=== PATIENT | female | born 1955 | race American Indian/Alaskan Native ===

== ENCOUNTER 2017-05-08 17:48 | Emergency (ER) | payer SELFPAY ==
--- NOTE | 2017-05-08 18:48 | EDM.PDOC ---
ED HPI GENERAL MEDICAL PROBLEM - General Chief Complaint: Skin Complaint Stated Complaint: FACE INFECTION [id number] Time Seen by Provider: 05/08/17 18:42 Source of Information: Reports: Patient History Limitations: Reports: No Limitations - History of Present Illness INITIAL COMMENTS - FREE TEXT/NARRATIVE: got bit by something Thursday, was itchy scratched ti now looks worse. - Related Data Allergies Allergy/AdvReac Type Severity Reaction Status Date / Time No Known Allergies Allergy Verified 05/21/16 19:02 Home Meds: Home Meds Insulin Detemir [Levemir Flexpen] 22 unit SQ DAILY 02/24/14 [History] Acetaminophen [Tylenol] 650 mg PO Q4HR PRN 02/02/15 [History] Ibuprofen [Motrin] 400 mg PO Q6HR PRN 02/02/15 [History] Multivitamin [Multivitamins] 1 tab PO DAILY 02/02/15 [History] metFORMIN [Glucophage] 1,000 mg PO DAILY 02/02/15 [History] Aspirin [Kai Chewable Aspirin] 81 mg PO DAILY 02/14/15 [History] Calcium Carbonate/Vitamin D3 [Os-Jermain 500+D] 1 tab PO DAILY 02/14/15 [History] Lisinopril [Prinivil] 5 mg PO DAILY #30 tablet 02/27/15 [Rx] Potassium Chloride [Klor-Con 10] 20 meq PO WITHBREAKFAST #30 tab.er 02/27/15 [Rx ] Past Medical History HEENT History: Reports: Impaired Vision Other HEENT History: wears glasses Cardiovascular History: Reports: CAD, Hypertension Respiratory History: Reports: Bronchitis, Recurrent Gastrointestinal History: Reports: None Genitourinary History: Reports: None 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 Other Musculoskeletal History: right below the knee amputation Neurological History: Reports: None Psychiatric History: Reports: None Endocrine/Metabolic History: Reports: Diabetes, Type II Hematologic History: Reports: None Immunologic History: Reports: None Oncologic (Cancer) History: Reports: None Dermatologic History: Reports: None - Infectious Disease History Infectious Disease History: Reports: None - Past Surgical History Head Surgeries/Procedures: Reports: None GI Surgical History: Reports: Cholecystectomy Musculoskeletal Surgical History: Reports: Amputation Social & Family History - Family History Family Medical History: Noncontributory - Tobacco Use Smoking Status *Q: Never Smoker Second Hand Smoke Exposure: No - Caffeine Use Caffeine Use: Reports: Coffee, Tea - Alcohol Use Days Per Week of Alcohol Use: 0 - Recreational Drug Use Recreational Drug Use: No - Living Situation & Occupation Living situation: Reports: with Family Occupation: Disabled ED ROS GENERAL - Review of Systems Review Of Systems: ROS reveals no pertinent complaints other than HPI. ED EXAM, SKIN/RASH Exam: See Below Exam Limited By: No Limitations General Appearance: Alert, WD/WN, No Apparent Distress Ears: Hearing Grossly Normal Throat/Mouth: Normal Voice, No Airway Compromise Head: Atraumatic Neck: Non-Tender, Full Range of Motion Respiratory/Chest: No Respiratory Distress Cardiovascular: Regular Rate, Rhythm GI/Abdominal: Soft, Non-Tender Neurological: Alert, Oriented, Normal Cognition, Normal Gait, No Motor/Sensory Deficits Psychiatric: Normal Affect, Normal Mood Skin: Warm, Dry, Normal Color, Other (right cheek infected bite local erythema. ) Location, Skin: Face Characteristics: Erythematous Associated features: Warmth, Inflammation Lymphatic: No Adenopathy Course - Vital Signs Last Recorded V/S: Last Vital Signs Temp 36.9 C 05/08/17 18:32 Pulse 85 05/08/17 18:32 Resp 18 05/08/17 18:32 BP 153/84 H 05/08/17 18:32 Pulse Ox 97 05/08/17 18:32 Departure - Departure Time of Disposition: 18:44 Disposition: Home, Self-Care 01 Condition: Good Clinical Impression: Infected bite wound - Discharge Information Instructions: Cellulitis, Adult, [id number] Forms: ED Department Discharge Additional Instructions: 1) continue hot compress to cheek 2) follow up at clinic or recheck as needed rx given; clindamycin 150mg qid x 40
== END 2017-05-08 18:54 | disposition home or self-care (01) ==
LOC: DL.ED 17:48
CPT/HCPCS: 99283

== ENCOUNTER 2017-07-29 09:55 | Emergency (ER) | payer OTHER ==
--- NOTE | 2017-07-29 10:07 | EDM.PDOC ---
ED HPI GENERAL MEDICAL PROBLEM - General Chief Complaint: Lower Extremity Injury/Pain Stated Complaint: hip pain . In by [facility] Time Seen by Provider: 07/29/17 10:25 Source of Information: Reports: Patient History Limitations: Reports: No Limitations - History of Present Illness INITIAL COMMENTS - FREE TEXT/NARRATIVE: Patient presents to the ER via EMS. She reports that she got out of bed around 0530 this morning to go to the bathroom. As she was attempting to put on her right leg prosthetic she lost her balance and fell, landing on her right hip. She was unable to get up following fall. She reports 8/10 pain localized to her right hip, initially and at time of assessment. Pain worsens with movement. Denies any numbness or tingling to affected extremity. Denies LOC or hitting head with fall. Right Hip Pain Score (Numeric/FACES): 8 - Related Data Allergies Allergy/AdvReac Type Severity Reaction Status Date / Time No Known Allergies Allergy Verified 07/29/17 09:58 Home Meds: Home Meds Insulin Detemir [Levemir Flexpen] 25 unit SQ DAILY 02/24/14 [History] Acetaminophen [Tylenol] 650 mg PO Q4HR PRN 02/02/15 [History] Ibuprofen [Motrin] 400 mg PO Q6HR PRN 02/02/15 [History] Multivitamin [Multivitamins] 1 tab PO DAILY 02/02/15 [History] metFORMIN [Glucophage] 1,000 mg PO DAILY 02/02/15 [History] Aspirin [Kai Chewable Aspirin] 81 mg PO DAILY 02/14/15 [History] Calcium Carbonate/Vitamin D3 [Os-Jermain 500+D] 1 tab PO DAILY 02/14/15 [History] Lisinopril [Prinivil] 5 mg PO DAILY #30 tablet 02/27/15 [Rx] Potassium Chloride [Klor-Con 10] 20 meq PO WITHBREAKFAST #30 tab.er 02/27/15 [Rx ] Past Medical History HEENT History: Reports: Impaired Vision Other HEENT History: wears glasses Cardiovascular History: Reports: CAD, Hypertension Respiratory History: Reports: Bronchitis, Recurrent Gastrointestinal History: Reports: None Genitourinary History: Reports: None [employer]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 Other Musculoskeletal History: right below the knee amputation Neurological History: Reports: None Psychiatric History: Reports: None Endocrine/Metabolic History: Reports: Diabetes, Type II Hematologic History: Reports: None Immunologic History: Reports: None Oncologic (Cancer) History: Reports: None Dermatologic History: Reports: None - Infectious Disease History Infectious Disease History: Reports: None - Past Surgical History Head Surgeries/Procedures: Reports: None GI Surgical History: Reports: Cholecystectomy Musculoskeletal Surgical History: Reports: Amputation Social & Family History - Family History Family Medical History: Noncontributory - Tobacco Use Smoking Status *Q: Never Smoker Second Hand Smoke Exposure: No - Caffeine Use Caffeine Use: Reports: Coffee, Soda, Tea - Alcohol Use Days Per Week of Alcohol Use: 0 - Recreational Drug Use Recreational Drug Use: No - Living Situation & Occupation Living situation: Reports: with Family Occupation: Disabled Review of Systems - Review of Systems Review Of Systems: ROS reveals no pertinent complaints other than HPI. ED EXAM, GENERAL - Physical Exam Exam: See Below Exam Limited By: No Limitations General Appearance: Alert, WD/WN, No Apparent Distress Head: Atraumatic, Normocephalic Neck: Normal Inspection, Supple, Non-Tender, Full Range of Motion Respiratory/Chest: No Respiratory Distress, Lungs Clear, Normal Breath Sounds, No Accessory Muscle Use, Chest Non-Tender Cardiovascular: Normal Peripheral Pulses, Regular Rate, Rhythm, No Edema, No Gallop, No JVD, No Murmur, No Rub GI/Abdominal: Normal Bowel Sounds, Soft, Non-Tender, No Organomegaly, No Distention, No Abnormal Bruit, No Mass (Female) Exam: Deferred Rectal (Female) Exam: Deferred Extremities: Normal Inspection, Normal Capillary Refill, Leg Pain (right hip), Limited Range of Motion (RLE due to pain) Neurological: Alert, Oriented, CN II-XII Intact, Normal Cognition, No Motor/ Sensory Deficits Psychiatric: Normal Affect, Normal Mood Skin Exam: Warm, Dry, Intact, Normal Color, No Rash Course - Vital Signs Last Recorded V/S: Last Vital Signs Temp 36.6 C 07/29/17 10:05 Pulse 96 07/29/17 11:08 Resp 16 07/29/17 11:08 BP 127/66 07/29/17 11:08 Pulse Ox 93 L 07/29/17 11:08 - Orders/Labs/Meds Meds: Medications Discontinued Medications Generic Name Dose Route Start Last Admin Trade Name Freq PRN Reason Stop Dose Admin Hydromorphone HCl 0.5 mg 07/29/17 10:26 07/29/17 10:31 Dilaudid IVPUSH 07/29/17 10:27 0.5 mg ONETIME ONE Administration - Re-Assessments/Exams Free Text/Narrative Re-Assessment/Exam: Spoke with Dr. Scherer ([facility]) who accepted the patient for transfer. Will send the patient by [facility]. 07/29/17 11:07 Departure - Departure Time of Disposition: 11:11 Disposition: DC/Tfer to Acute Hospital 02 Condition: Fair Clinical Impression: Fracture of neck of femur, hip - Discharge Information Forms: Interfacility Transfer EMTALA Care Plan Goals: Discussed history and Xray results with Dr. Scherer ([facility]). Patient accepted for transfer. Patient will be transferred by [facility] . Discussed with patient and daughter who were agreeable to plan of care.
[2017-07-29] MEDS ORDERED: HYDROmorphone 1 MG/ML Syringe IVPUSH ONE ×2 (10:26→11:16)
[2017-07-29 11:08] VITALS: BP 127/66
== END 2017-07-29 11:45 ==
LOC: DL.ED 09:55
DX: S72.001A Fracture of unspecified part of neck of right femur, initial encounter for closed fracture (principal); I25.10 Atherosclerotic heart disease of native coronary artery without angina pectoris; E11.9 Type 2 diabetes mellitus without complications; I10 Essential (primary) hypertension; Z79.899 Other long term (current) drug therapy; Z79.4 Long term (current) use of insulin; W18.11XA Fall from or off toilet without subsequent striking against object, initial encounter
CPT/HCPCS: 73502; 96374; 96376; 99285; J1170; 99284

== ENCOUNTER 2018-07-28 07:33 | Day surgery (SDC) | payer MEDICAID ==
[2018-07-28] MEDS ORDERED: Dexamethasone 4 MG/ML SDV IV ONE (07:34)
[2018-07-28] MEDS ORDERED: Midazolam 1 MG/ML 2 ML SDV IV ONE (07:34)
[2018-07-28] MEDS ORDERED: Sodium Chloride 0.9% 10 ML Syringe IV ONE (07:34)
[2018-07-28] MEDS ORDERED: Dilation Soln 1 EA EACH EYELF ONE (07:48)
[2018-07-28] MEDS ORDERED: Povidone-Iodine 5% Sterile Ophth Soln 30 ML Bottle EYELF ONE ×2 (07:48→08:56)
[2018-07-28] MEDS ORDERED: Timolol Maleate 0.5% Ophth Soln 5 ML Bottle EYELF ONE (07:48)
[2018-07-28] MEDS ORDERED: Phenylephrine 10% Ophth Soln 5 ML Bot EYELF ONE (07:48)
[2018-07-28] MEDS ORDERED: Proparacaine 0.5% Ophth Soln 15 ML Bottle EYELF ONE (07:48)
[2018-07-28] MEDS ORDERED: Moxifloxacin 0.5% Ophth Soln 3 ML Bottle EYELF ONE (07:48)
[2018-07-28] MEDS ORDERED: Sodium Chloride 0.9% 10 ML Syringe FLUSH SCH (08:00)
[2018-07-28] MEDS ORDERED: Tetracaine HCl/PF 0.5% 4 ML Bottle EYELF ONE (08:56)
[2018-07-28] MEDS ORDERED: Lidocaine 1% 30 ML SDV INJECT ONE (09:03)
[2018-07-28] MEDS ORDERED: Chondroitin Sulfate/Hyaluronate Sodium Ophth Inj 0.75 ML Syringe EYELF ONE (09:04)
[2018-07-28] MEDS ORDERED: Balanced Salt Solution Ophth Irrig 500 ML Bottle IOCULAR ONE (09:04)
[2018-07-28] MEDS ORDERED: Vancomycin 500 MG SDV EYELF ONE (09:06)
[2018-07-28] MEDS ORDERED: Apraclonidine 0.5% Ophth Soln 5 ML Bot EYELF ONE (09:12)
[2018-07-28] MEDS ORDERED: Diclofenac Sodium 0.1% Ophth Soln 5 ML Bottle EYELF ONE (09:12)
[2018-07-28] MEDS ORDERED: Dexamethasone/Neomycin/Polymyxin B Ophth Oint 3.5 GM Tube EYELF ONE (09:13)
[2018-07-28 10:09] VITALS: BP 146/72
--- NOTE | 2018-07-28 11:23 | OR ---
DATE: PREOPERATIVE DIAGNOSIS: Visually significant mixed cataract, left eye. POSTOPERATIVE DIAGNOSIS: Visually significant mixed cataract, left eye. PROCEDURE: Extracapsular cataract extraction with intraocular lens implant, left eye. ANESTHESIA: Topical/local MAC. COMPLICATIONS: None. INDICATION: Ms. Harrington was seen in the clinic. She is unhappy with her vision, and she has noticed a slow progressive change. Clinical examination reveals visually significant mixed cataract. I explained options; I offered cataract surgery; and I explained risks including the potential for infection, retinal detachment, and loss of vision amongst others. We discussed implant options, and she has requested a monofocal implant. OPERATIVE DESCRIPTION: After informed consent was obtained and the risks, benefits, and alternatives were explained, the patient was brought to the operative suite and topical anesthesia was administered. The patient was then prepped and draped in the sterile fashion, and attention was placed on the left eye. A sterile lid speculum was placed into the left eye to allow operative exposure. A full-thickness paracentesis was made in the temporal portion of the operative eye. Preservative-free lidocaine 0.1 mL was injected into the anterior chamber followed by viscoelastic. A full-thickness corneal incision was then made into the anterior chamber. A bent needle cystotome was used to create a small cathy in the anterior capsule. The capsulorrhexis forceps was then used to create a 360-degree curvilinear capsulorrhexis. The nucleus was then removed using a phacoemulsification handpiece, and the remaining cortical material was then removed with irrigation and aspiration handpiece. Following removal of the cortical material, the capsular bag was then inspected and noted to be free of any holes or tears. Viscoelastic was then injected into the capsular bag, and the intraocular lens was inserted into the capsular bag. The viscoelastic material was then removed from both the anterior and posterior chambers and from behind the IOL. The lens and capsular bag were then reinspected. The IOL was well centered and the capsular bag intact. The wound and paracentesis sites were inspected and hydrated with balanced saline solution. Both were found to be self-sealing. The intraocular pressure was assessed digitally and found to be within normal range. A good red reflex was noted at the completion of the procedure. No complications occurred during the operation. At the completion of the procedure, Maxitrol, Voltaren, and Iopidine drops were placed into the operative eye. A sterile eye shield was placed over the operative eye, and the patient was transported to the postoperative recovery area having tolerated the procedure well. Postoperative instructions were given along with a postoperative appointment. The patient was advised to call with any questions or concerns. [facility] /[id number]
== END 2018-07-28 10:05 | disposition home or self-care (01) ==
LOC: DL.SDS 07:33
PROVIDERS: ATTEND Ophthalmology
DX: E11.36 Type 2 diabetes mellitus with diabetic cataract (principal); E11.22 Type 2 diabetes mellitus with diabetic chronic kidney disease; N18.3 Chronic kidney disease, stage 3 (moderate); E11.621 Type 2 diabetes mellitus with foot ulcer; L97.519 Non-pressure chronic ulcer of other part of right foot with unspecified severity; E78.5 Hyperlipidemia, unspecified; E55.9 Vitamin D deficiency, unspecified; Z79.4 Long term (current) use of insulin; Z79.899 Other long term (current) drug therapy; Z88.1 Allergy status to other antibiotic agents; Z89.511 Acquired absence of right leg below knee; Z87.891 Personal history of nicotine dependence
CPT/HCPCS: 66984; 82962; A9270; C1780; J1100; J2250; J3370; J7050

== ENCOUNTER 2018-08-04 07:39 | Day surgery (SDC) | payer MEDICAID ==
[2018-08-04] MEDS ORDERED: Midazolam 1 MG/ML 2 ML SDV IV ONE (07:40)
[2018-08-04] MEDS ORDERED: Dexamethasone 4 MG/ML SDV IV ONE (07:40)
[2018-08-04] MEDS ORDERED: Sodium Chloride 0.9% 10 ML Syringe IV ONE (07:40)
[2018-08-04] MEDS ORDERED: Tetracaine HCl/PF 0.5% 4 ML Bottle EYERT ONE (08:51)
[2018-08-04] MEDS ORDERED: Povidone-Iodine 5% Sterile Ophth Soln 30 ML Bottle EYERT ONE ×2 (08:52→10:15)
[2018-08-04] MEDS ORDERED: Lidocaine 1% 30 ML SDV ONE (08:52)
[2018-08-04] MEDS ORDERED: Vancomycin 500 MG SDV EYERT ONE (08:52)
[2018-08-04] MEDS ORDERED: Chondroitin Sulfate/Hyaluronate Sodium Ophth Inj 0.75 ML Syringe EYERT ONE (08:53)
[2018-08-04] MEDS ORDERED: Balanced Salt Solution Ophth Irrig 500 ML Bottle IOCULAR ONE (08:53)
[2018-08-04] MEDS ORDERED: Dexamethasone/Neomycin/Polymyxin B Ophth Oint 3.5 GM Tube EYERT ONE (08:54)
[2018-08-04] MEDS ORDERED: Apraclonidine 0.5% Ophth Soln 5 ML Bot EYERT ONE (08:54)
--- NOTE | 2018-08-04 09:23 | OR ---
DATE: 08/04/2018 PREOPERATIVE DIAGNOSIS: Visually significant mixed cataract, right eye. POSTOPERATIVE DIAGNOSIS: Visually significant mixed cataract, right eye. PROCEDURE: Extracapsular cataract extraction with intraocular lens implant, right eye. ANESTHESIA: Topical/local MAC. COMPLICATIONS: None. INDICATION: Mrs. Harrington was seen in the clinic. She has complained of difficulty reading and difficulty seeing at distance. Clinical examination reveals mixed nuclear and cortical cataract. I explained options; I offered cataract surgery; and I explained risks preoperatively including the potential for infection, retinal detachment, loss of vision, and need for additional surgery amongst others. We discussed implant options, and she requested a monofocal implant. OPERATIVE DESCRIPTION: After informed consent was obtained and the risks, benefits, and alternatives were explained, the patient was brought to the operative suite and topical anesthesia was administered. The patient was then prepped and draped in the sterile fashion, and attention was placed on the right eye. A sterile lid speculum was placed into the right eye to allow operative exposure. A full-thickness paracentesis was made in the temporal portion of the operative eye. Preservative-free lidocaine 0.1 mL was injected into the anterior chamber followed by viscoelastic. A full-thickness corneal incision was then made into the anterior chamber. A bent needle cystotome was used to create a small cathy in the anterior capsule. The capsulorrhexis forceps was then used to create a 360-degree curvilinear capsulorrhexis. The nucleus was then removed using a phacoemulsification handpiece, and the remaining cortical material was then removed with irrigation and aspiration handpiece. Following removal of the cortical material, the capsular bag was then inspected and noted to be free of any holes or tears. Viscoelastic was then injected into the capsular bag, and the intraocular lens was inserted into the capsular bag. The viscoelastic material was then removed from both the anterior and posterior chambers and from behind the IOL. The lens and capsular bag were then reinspected. The IOL was well centered and the capsular bag intact. The wound and paracentesis sites were inspected and hydrated with balanced saline solution. Both were found to be self-sealing. The intraocular pressure was assessed digitally and found to be within normal range. A good red reflex was noted at the completion of the procedure. No complications occurred during the operation. At the completion of the procedure, Maxitrol, Voltaren, and Iopidine drops were placed into the operative eye. A sterile eye shield was placed over the operative eye, and the patient was transported to the postoperative recovery area having tolerated the procedure well. Postoperative instructions were given along with a postoperative appointment. The patient was advised to call with any questions or concerns. [facility] /[id number]
[2018-08-04] MEDS ORDERED: Dilation Soln 1 EA EACH EYERT ONE (10:15)
[2018-08-04] MEDS ORDERED: Sodium Chloride 0.9% 10 ML Syringe FLUSH SCH (10:15)
[2018-08-04] MEDS ORDERED: Phenylephrine 10% Ophth Soln 5 ML Bot EYERT ONE (10:15)
[2018-08-04] MEDS ORDERED: Moxifloxacin 0.5% Ophth Soln 3 ML Bottle EYERT ONE (10:15)
[2018-08-04] MEDS ORDERED: Timolol Maleate 0.5% Ophth Soln 5 ML Bottle EYERT ONE (10:15)
[2018-08-04] MEDS ORDERED: Proparacaine 0.5% Ophth Soln 15 ML Bottle EYERT ONE (10:15)
[2018-08-04 12:15] VITALS: BP 152/69
== END 2018-08-04 10:02 | disposition home or self-care (01) ==
LOC: DL.SDS 07:39
PROVIDERS: ATTEND Ophthalmology
DX: E11.36 Type 2 diabetes mellitus with diabetic cataract (principal); H25.811 Combined forms of age-related cataract, right eye; E11.22 Type 2 diabetes mellitus with diabetic chronic kidney disease; N18.3 Chronic kidney disease, stage 3 (moderate); J06.9 Acute upper respiratory infection, unspecified; J40 Bronchitis, not specified as acute or chronic; E78.5 Hyperlipidemia, unspecified; E55.9 Vitamin D deficiency, unspecified; Z98.42 Cataract extraction status, left eye; Z96.1 Presence of intraocular lens; Z87.891 Personal history of nicotine dependence; Z79.4 Long term (current) use of insulin; Z79.82 Long term (current) use of aspirin; Z79.899 Other long term (current) drug therapy; Z89.511 Acquired absence of right leg below knee
CPT/HCPCS: 82962; A9270-GY; C1780; J1100; J2250; J3370; J7050

== ENCOUNTER 2020-01-20 19:12 | Emergency (ER) | payer MEDICARE, OTHER ==
[2020-01-20] MEDS ORDERED: Metoprolol Tartrate 50 MG Tab PO ONE (19:13)
--- NOTE | 2020-01-20 19:30 | EDM.PDOC ---
ED HPI GENERAL MEDICAL PROBLEM - General Chief Complaint: Cardiovascular Problem Stated Complaint: HIGH BLOOD PRESSURE Time Seen by Provider: 01/20/20 19:25 Source of Information: Reports: Patient History Limitations: Reports: No Limitations - History of Present Illness INITIAL COMMENTS - FREE TEXT/NARRATIVE: seen in clinic this afternoon Sinus infection and bladder infection, told to come to ED because BP elevated likely from cold medication. Usually runs 125 systolic, patient denies any symptoms, Unsure of what OTC cough and cold medication she has been using. - Related Data Allergies Allergy/AdvReac Type Severity Reaction Status Date / Time No Known Allergies Allergy Verified 01/20/20 19:20 Home Meds: Home Meds Insulin Detemir [Levemir Flexpen] 25 unit SQ DAILY 02/24/14 [History] Acetaminophen [Tylenol] 650 mg PO Q4HR PRN 02/02/15 [History] Ibuprofen [Motrin] 400 mg PO Q6HR PRN 02/02/15 [History] Multivitamin [Multivitamins] 1 tab PO DAILY 02/02/15 [History] metFORMIN [Glucophage] 1,000 mg PO DAILY 02/02/15 [History] Aspirin [Kai Chewable Aspirin] 81 mg PO DAILY 02/14/15 [History] Calcium Carbonate/Vitamin D3 [Os-Jermain 500+D] 1 tab PO DAILY 02/14/15 [History] Potassium Chloride [Klor-Con 10] 20 meq PO WITHBREAKFAST #30 tab.er 02/27/15 [Rx ] lisinopriL [Prinivil] 5 mg PO DAILY #30 tablet 02/27/15 [Rx] atorvaSTATin [Lipitor] 10 mg PO DAILY 07/26/18 [History] Past Medical History HEENT History: Reports: Cataract, Impaired Vision Other HEENT History: wears glasses Cardiovascular History: Reports: CAD, Hypertension Respiratory History: Reports: Bronchitis, Recurrent Gastrointestinal History: Reports: None Genitourinary History: Reports: None 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 Musculoskeletal History: Reports: Arthritis Other Musculoskeletal History: right below the knee amputation Neurological History: Reports: None Psychiatric History: Reports: None Endocrine/Metabolic History: Reports: Diabetes, Type II Hematologic History: Reports: None Immunologic History: Reports: None Oncologic (Cancer) History: Reports: None Dermatologic History: Reports: None - Infectious Disease History Infectious Disease History: Reports: None - Past Surgical History Head Surgeries/Procedures: Reports: None HEENT Surgical History: Reports: Cataract Surgery Cardiovascular Surgical History: Reports: None Respiratory Surgical History: Reports: None GI Surgical History: Reports: Appendectomy, Cholecystectomy Endocrine Surgical History: Reports: None Neurological Surgical History: Reports: None Musculoskeletal Surgical History: Reports: Amputation Dermatological Surgical History: Reports: None Social & Family History - Family History Family Medical History: Noncontributory - Tobacco Use Smoking Status *Q: Never Smoker Second Hand Smoke Exposure: No - Caffeine Use Caffeine Use: Reports: Coffee - Recreational Drug Use Recreational Drug Use: No - Living Situation & Occupation Living situation: Reports: with Family Occupation: Disabled ED ROS GENERAL - Review of Systems Review Of Systems: See Below Constitutional: Reports: Malaise HEENT: Reports: Sinus Problem Respiratory: Reports: No Symptoms Cardiovascular: Reports: No Symptoms GI/Abdominal: Reports: No Symptoms Musculoskeletal: Reports: No Symptoms Neurological: Reports: No Symptoms. Denies: Headache, Seizure, Tingling, Tremors, Trouble Speaking, Difficulty Walking, Weakness ED EXAM, GENERAL - Physical Exam Exam: See Below Exam Limited By: No Limitations General Appearance: Alert, No Apparent Distress Eye Exam: Bilateral Eye: EOMI, PERRL Ears: Normal External Exam, Hearing Grossly Normal, Normal TMs Nose: Normal Inspection, Normal Mucosa. No: Nasal Tenderness Throat/Mouth: Normal Inspection, Normal Oropharynx Head: Atraumatic, Normocephalic. No: Sinus Tenderness Neck: Normal Inspection Respiratory/Chest: No Respiratory Distress, Lungs Clear, Normal Breath Sounds Cardiovascular: Normal Peripheral Pulses, Regular Rate, Rhythm GI/Abdominal: Normal Bowel Sounds Extremities: Normal Inspection Neurological: Alert, Oriented, Normal Cognition Psychiatric: Normal Affect, Normal Mood Skin Exam: Warm, Dry, Intact Course - Vital Signs Last Recorded V/S: Last Vital Signs Temp 97.8 F 01/20/20 19:20 Pulse 91 01/20/20 20:00 Resp 16 01/20/20 19:20 BP 198/91 H 01/20/20 20:00 Pulse Ox 99 01/20/20 19:20 - Orders/Labs/Meds Orders: Active Orders 24 hr Category Date Time Status EKG 12 Lead [EKG Documentation Completion] [RC] URGENT Care 01/20/20 19:30 Active Labs: Laboratory Tests 01/20/20 01/20/20 Range/Units 19:51 19:51 WBC 7.4 (5.0-10.0) 10^3/uL RBC 3.09 L (4.2-5.4) 10^6/uL Hgb 9.7 L (12.0-16.0) g/dL Hct 29.5 L (37.0-47.0) % MCV 95.5 D (80-100) fL MCH 31.4 (27.0-34.0) pg MCHC 32.9 L (33.0-35.0) g/dL Plt Count 155 D (150-450) 10^3/uL Neut % (Auto) 64.5 (42.2-75.2) % Lymph % (Auto) 23.5 (20.5-50.1) % Jennings % (Auto) 9.5 H (2-8) % Eos % (Auto) 2.2 (1.0-3.0) % Baso % (Auto) 0.3 (0.0-1.0) % Sodium 140 (136-145) mmol/L Potassium 4.3 (3.5-5.1) mmol/L Chloride 107 (98-107) mmol/L Carbon Dioxide 22 (21-32) mmol/L Anion Gap 15.3 H (7-13) mEq/L BUN 31 H (7-18) mg/dL Creatinine 1.67 H (0.55-1.02) mg/dL Est Cr Clr Drug Dosing 27.78 mL/min Estimated GFR (MDRD) 31 BUN/Creatinine Ratio 18.6 (No establ ref range) Glucose 175 H (74-99) mg/dL Calcium 8.2 L (8.5-10.1) mg/dL Total Bilirubin 0.2 (0.2-1.0) mg/dL AST 24 (15-37) U/L ALT 25 (14-59) U/L Alkaline Phosphatase 120 H (46-116) U/L Total Protein 7.5 (6.4-8.2) g/dL Albumin 2.9 L (3.4-5.0) g/dL Globulin 4.6 Albumin/Globulin Ratio 0.63 Meds: Medications Discontinued Medications Generic Name Dose Route Start Last Admin Trade Name Freq PRN Reason Stop Dose Admin Metoprolol Tartrate 2.5 mg 01/20/20 19:55 01/20/20 20:00 Lopressor IVPUSH 01/20/20 19:56 2.5 mg ONETIME ONE Administration Metoprolol Tartrate Confirm 01/20/20 20:40 01/20/20 21:06 Lopressor Administered 01/20/20 20:41 Not Given Dose 50 mg .ROUTE .STK-MED ONE Departure - Departure Time of Disposition: 20:22 Disposition: Home, Self-Care 01 Condition: Good Clinical Impression: Hypertensive heart disease Qualifiers: Heart failure presence: unspecified whether heart failure present Qualified Code(s): I11.9 - Hypertensive heart disease without heart failure Sinus infection Qualifiers: Sinusitis location: pansinusitis Chronicity: acute Recurrence: not specified as recurrent Qualified Code(s): J01.40 - Acute pansinusitis, unspecified Referrals: Juan Francisco Lacey MD [Primary Care Provider] - Forms: ED Department Discharge Additional Instructions: avoid NSAID- ibuprofen Cough mediction per package only if has HBP in label Conitnue antibiotic as orded metoprolol 25mg one this ira monitor blood pressure recheck if greater than 190 rest light activity Sepsis Event Note - Evaluation Sepsis Screening Result: No Definite Risk - Focused Exam Vital Signs: Vital Signs Temp Pulse Pulse Resp BP BP Pulse Ox 01/20/20 20:00 91 198/91 H 01/20/20 19:20 97.8 F 100 16 204/99 H 99 Date Exam was Performed: 01/21/20 Time Exam was Performed: 04:16 - My Orders Last 24 Hours: My Active Orders 01/20/20 19:30 EKG 12 Lead [EKG Documentation Completion] [RC] URGENT - Assessment/Plan Last 24 Hours: My Active Orders 01/20/20 19:30 EKG 12 Lead [EKG Documentation Completion] [RC] URGENT
[2020-01-20] MEDS ORDERED: Metoprolol Tartrate 5 MG/5 ML SDV IVPUSH ONE (19:55)
[2020-01-20 20:02] VITALS: BP 198/91; PULSE 91
[2020-01-20 20:26] LABS: ANION GAP 15.3 mEq/L (7-13)
[2020-01-20] MEDS ORDERED: Metoprolol Tartrate 50 MG Tab ONE (20:40)
== END 2020-01-20 21:15 | disposition home or self-care (01) ==
LOC: DL.ED 19:12
DX: I11.9 Hypertensive heart disease without heart failure (principal); J01.40 Acute pansinusitis, unspecified; I25.10 Atherosclerotic heart disease of native coronary artery without angina pectoris; E11.9 Type 2 diabetes mellitus without complications; Z79.899 Other long term (current) drug therapy; Z98.49 Cataract extraction status, unspecified eye; Z90.49 Acquired absence of other specified parts of digestive tract; Z79.82 Long term (current) use of aspirin; Z79.84 Long term (current) use of oral hypoglycemic drugs
CPT/HCPCS: 36415; 80053; 85025; 93005; 96374; 99283; 99283-25; J3490

== ENCOUNTER 2020-09-05 12:25 | Inpatient (IN) | payer MEDICARE, MEDICAID, OTHER ==
--- NOTE | 2020-09-05 12:46 | EDM.PDOC ---
ED HPI GENERAL MEDICAL PROBLEM - General Chief Complaint: Respiratory Problem Time Seen by Provider: 09/05/20 12:30 Source of Information: Reports: Patient, EMS, EMS Notes Reviewed, RN, RN Notes Reviewed History Limitations: Reports: No Limitations - History of Present Illness INITIAL COMMENTS - FREE TEXT/NARRATIVE: Patient to ER per [facility] with complaint of weakness, cough, sharp pains to the right upper quadrant and back with cough. Patient states she was tested positive for Covid on August 28, and has been quarantining. States the pain with the cough has been for about the past 2 days. Admits to nausea/vomiting/dry heaves. Unable to eat, is diabetic. Denies fever, chills, diarrhea. Admits to shortness of breath with the cough and the pain as well. Patient states she has had her gallbladder removed. Onset: Gradual - Related Data Allergies Allergy/AdvReac Type Severity Reaction Status Date / Time No Known Allergies Allergy Verified 09/05/20 12:05 Home Meds: Home Meds Insulin Detemir [Levemir Flexpen] 25 unit SQ DAILY 02/24/14 [History] Acetaminophen [Tylenol] 650 mg PO Q4HR PRN 02/02/15 [History] Ibuprofen [Motrin] 400 mg PO Q6HR PRN 02/02/15 [History] Multivitamin [Multivitamins] 1 tab PO DAILY 02/02/15 [History] Calcium Carbonate/Vitamin D3 [Os-Jermain 500+D] 1 tab PO DAILY 02/14/15 [History] atorvaSTATin [Lipitor] 10 mg PO DAILY 07/26/18 [History] Aspirin [Aspirin EC] 325 mg PO DAILY 09/05/20 [History] Losartan [Cozaar] 25 mg PO DAILY 09/05/20 [History] Past Medical History HEENT History: Reports: Cataract, Impaired Vision Other HEENT History: wears glasses Cardiovascular History: Reports: CAD, Hypertension Respiratory History: Reports: Bronchitis, Recurrent Gastrointestinal History: Reports: None Genitourinary History: Reports: None 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 Musculoskeletal History: Reports: Arthritis Other Musculoskeletal History: right below the knee amputation Neurological History: Reports: None Psychiatric History: Reports: None Endocrine/Metabolic History: Reports: Diabetes, Type II Hematologic History: Reports: None Immunologic History: Reports: None Oncologic (Cancer) History: Reports: None Dermatologic History: Reports: None - Infectious Disease History Infectious Disease History: Reports: None - Past Surgical History Head Surgeries/Procedures: Reports: None HEENT Surgical History: Reports: Cataract Surgery Cardiovascular Surgical History: Reports: None Respiratory Surgical History: Reports: None GI Surgical History: Reports: Appendectomy, Cholecystectomy Endocrine Surgical History: Reports: None Neurological Surgical History: Reports: None Musculoskeletal Surgical History: Reports: Amputation Dermatological Surgical History: Reports: None Social & Family History - Family History Family Medical History: Noncontributory - Caffeine Use Caffeine Use: Reports: Coffee - Living Situation & Occupation Living situation: Reports: with Family Occupation: Disabled ED ROS GENERAL - Review of Systems Review Of Systems: Comprehensive ROS is negative, except as noted in HPI. ED EXAM, GENERAL - Physical Exam Exam: See Below Exam Limited By: No Limitations General Appearance: Alert, WD/WN, Mild Distress Eye Exam: Bilateral Eye: EOMI, Normal Inspection Ears: Normal External Exam, Hearing Grossly Normal Nose: Normal Inspection Throat/Mouth: Normal Inspection, Normal Voice, No Airway Compromise Head: Atraumatic, Normocephalic Neck: Normal Inspection, Supple, Non-Tender, Full Range of Motion Respiratory/Chest: No Respiratory Distress, No Accessory Muscle Use, Crackles (RLL) Cardiovascular: Normal Peripheral Pulses, Regular Rate, Rhythm, No Edema, No Gallop, No JVD, No Murmur, No Rub GI/Abdominal: Normal Bowel Sounds, Soft, No Organomegaly, No Distention, No Abnormal Bruit, No Mass, Pelvis Stable, Tender (RUQ) (Female) Exam: Deferred Rectal (Female) Exam: Deferred Back Exam: Normal Inspection, Full Range of Motion, CVA Tenderness (R) Extremities: Normal Inspection, Normal Range of Motion, Non-Tender, Normal Capillary Refill, No Pedal Edema Neurological: Alert, Oriented, CN II-XII Intact, Normal Cognition, Normal Gait, Normal Reflexes, No Motor/Sensory Deficits Psychiatric: Normal Affect, Normal Mood Skin Exam: Warm, Dry, Intact, Normal Color, No Rash Lymphatic: No Adenopathy Course - Vital Signs Last Recorded V/S: Last Vital Signs Temp 98.2 F 09/06/20 07:58 Pulse 62 09/06/20 07:58 Resp 20 09/06/20 07:58 BP 143/107 H 09/06/20 07:58 Pulse Ox 96 09/06/20 07:58 - Orders/Labs/Meds Orders: Medication Orders Acetaminophen (Tylenol) 650 mg PO Q4H PRN PRN Reason: Pain (Mild 1-3)/fever Last Admin: 09/06/20 07:48 Dose: 650 mg Documented by: Admin: 09/05/20 21:14 Dose: 650 mg Documented by: ROD Aspirin (Ecotrin) 325 mg PO DAILY [facility] Last Admin: 09/06/20 08:24 Dose: Not Given Documented by: Admin: 09/06/20 07:46 Dose: 325 mg Documented by: DUNG Atorvastatin Calcium (Lipitor) 10 mg PO DAILY [facility] Last Admin: 09/06/20 08:25 Dose: Not Given Documented by: Admin: 09/06/20 07:46 Dose: 10 mg Documented by: DUNG Calcium Carbonate (Calcium Carbonate/Vitamin D 1250 Mg-200 Unit) 1 tab PO DAILY [facility] Last Admin: 09/06/20 08:24 Dose: Not Given Documented by: Admin: 09/06/20 07:45 Dose: 1 tab Documented by: DUNG Dexamethasone (Dexamethasone) 6 mg IVPUSH DAILY [facility] Stop: 09/14/20 09:01 Last Admin: 09/06/20 08:24 Dose: Not Given Documented by: Admin: 09/06/20 07:50 Dose: 6 mg Documented by: Admin: 09/05/20 17:08 Dose: 6 mg Documented by: PAUL Docusate Sodium (Colace) 100 mg PO BID PRN PRN Reason: Constipation Heparin Sodium (Porcine) (Heparin Sodium) 5,000 units SUBCUT Q8HR [facility] Last Admin: 09/06/20 06:28 Dose: 5,000 units Documented by: Admin: 09/05/20 21:14 Dose: 5,000 units Documented by: ROD Hydralazine HCl (Apresoline) 25 mg PO Q8H PRN PRN Reason: Hypertension Last Admin: 09/05/20 21:19 Dose: 25 mg Documented by: ROD Sodium Chloride (Normal Saline) 1,000 mls @ 100 mls/hr IV ASDIRECTED [facility] Last Admin: 09/06/20 02:44 Dose: 100 mls/hr Documented by: Infusion: 09/06/20 02:35 Dose: 100 mls/hr Documented by: Admin: 09/05/20 16:35 Dose: 100 mls/hr Documented by: PAUL Influenza Virus Vaccine (Pharmacy To Dose - Influenza Vaccine) 1 each IM DAILY [facility] Insulin Glargine (Lantus) 25 unit SUBCUT DAILY [facility] Last Admin: 09/06/20 08:24 Dose: Not Given Documented by: Admin: 09/06/20 07:54 Dose: 25 units Documented by: DUNG Multivitamins (Thera) 1 each PO DAILY [facility] Last Admin: 09/06/20 08:25 Dose: Not Given Documented by: Admin: 09/06/20 07:46 Dose: 1 each Documented by: DUNG Oxycodone HCl (Oxycodone) 5 mg PO Q4H PRN PRN Reason: Pain (moderate 4-6) Zolpidem Tartrate (Ambien) 5 mg PO BEDTIME PRN PRN Reason: Sleep Labs: Laboratory Tests 09/05/20 09/05/20 09/05/20 Range/Units 13:00 13:00 13:00 WBC 9.2 (5.0-10.0) 10^3/uL RBC 3.08 L (4.2-5.4) 10^6/uL Hgb 9.7 L (12.0-16.0) g/dL Hct 29.5 L (37.0-47.0) % MCV 95.8 (80-100) fL MCH 31.5 (27.0-34.0) pg MCHC 32.9 L (33.0-35.0) g/dL Plt Count 131 L (150-450) 10^3/uL Neut % (Auto) 85.0 H (42.2-75.2) % Lymph % (Auto) 8.9 L (20.5-50.1) % [place] % (Auto) 5.8 (2-8) % Eos % (Auto) 0.2 L (1.0-3.0) % Baso % (Auto) 0.1 (0.0-1.0) % D-Dimer, Quantitative 340 (0-400) ng/mL Sodium 140 (136-145) mmol/L Potassium 4.1 (3.5-5.1) mmol/L Chloride 109 H (98-107) mmol/L Carbon Dioxide 15 L (21-32) mmol/L Anion Gap 20.1 H (7-13) mEq/L BUN 39 H (7-18) mg/dL Creatinine 2.64 H (0.55-1.02) mg/dL Est Cr Clr Drug Dosing 17.34 mL/min Estimated GFR (MDRD) 18 BUN/Creatinine Ratio 14.8 (No establ ref range) Glucose 121 H (74-99) mg/dL Calcium 8.1 L (8.5-10.1) mg/dL Total Bilirubin 0.3 (0.2-1.0) mg/dL AST 23 (15-37) U/L ALT 16 (14-59) U/L Alkaline Phosphatase 101 (46-116) U/L Lactate Dehydrogenase 198 (81-234) U/L C-Reactive Protein 12.6 H (0.0-0.9) mg/dL B-Natriuretic Peptide 77 (0-100) pg/ml Total Protein 7.6 (6.4-8.2) g/dL Albumin 2.3 L (3.4-5.0) g/dL Globulin 5.3 Albumin/Globulin Ratio 0.43 Meds: Medications Generic Name Dose Route Start Last Admin Trade Name Freq PRN Reason Stop Dose Admin Acetaminophen 650 mg 09/05/20 16:13 09/06/20 07:48 Tylenol PO 650 mg Q4H PRN Administration Pain (Mild 1-3)/fever Aspirin 325 mg 09/06/20 09:00 09/06/20 08:24 Ecotrin PO Not Given DAILY [facility] Atorvastatin Calcium 10 mg 09/06/20 09:00 09/06/20 08:25 Lipitor PO Not Given DAILY [facility] Calcium Carbonate 1 tab 09/06/20 09:00 09/06/20 08:24 Calcium Carbonate/Vitamin D 1250 Mg-200 Unit PO Not Given DAILY [facility] Dexamethasone 6 mg 09/05/20 16:30 09/06/20 08:24 Dexamethasone IVPUSH 09/14/20 09:01 Not Given DAILY [facility] Docusate Sodium 100 mg 09/05/20 16:13 Colace PO BID PRN Constipation Heparin Sodium (Porcine) 5,000 units 09/05/20 22:00 09/06/20 06:28 Heparin Sodium SUBCUT 5,000 units Q8HR [facility] Administration Hydralazine HCl 25 mg 09/05/20 19:45 09/05/20 21:19 Apresoline PO 25 mg Q8H PRN Administration Hypertension Sodium Chloride 1,000 mls @ 100 mls/hr 09/05/20 16:15 09/06/20 02:44 Normal Saline IV 100 mls/hr ASDIRECTED [facility] Administration Influenza Virus Vaccine 1 each 09/06/20 09:00 Pharmacy To Dose - Influenza Vaccine IM DAILY [facility] Insulin Glargine 25 unit 09/06/20 09:00 09/06/20 08:24 Lantus SUBCUT Not Given DAILY [facility] Multivitamins 1 each 09/06/20 09:00 09/06/20 08:25 Thera PO Not Given DAILY [facility] Oxycodone HCl 5 mg 09/05/20 16:13 Oxycodone PO Q4H PRN Pain (moderate 4-6) Zolpidem Tartrate 5 mg 09/05/20 16:13 Ambien PO BEDTIME PRN Sleep - Radiology Interpretation Free Text/Narrative:: CT Chest wo contrast: 1. Multiple small peripheral groundglass densities, subpleural interstitial infiltrates/fibrosis, scattered throughout both lung randolph. Appearance characteristic with the Covid virus infection or pneumonia. 2. Normal cardiac silhouette, size and configuration. No pulmonary vascular congestion, alveolar edema or dependent pleural effusion. 3. No lung mass or significant hilar/mediastinal lymphadenopathy. 4. No alveolar infiltrates/consolidation or air bronchograms. Midline tracheobronchial airway unremarkable. 5. Normal caliber thoracic aorta. Osteopenia, marginal spondylosis dorsal spine See rad report - Re-Assessments/Exams Free Text/Narrative Re-Assessment/Exam: 09/06/20 09:29 Discussed patient case with Dr. Cody who agreed to accept the patient for inpatient admission. Departure - Departure Time of Disposition: 15:30 Disposition: Admitted As Inpatient 65 Condition: Fair Clinical Impression: Pneumonia due to COVID-19 virus - Discharge Information *PRESCRIPTION DRUG MONITORING PROGRAM REVIEWED*: No *COPY OF PRESCRIPTION DRUG MONITORING REPORT IN PATIENT DANA: No
[2020-09-05 13:34] LABS: ANION GAP 20.1 mEq/L (7-13)
--- NOTE | 2020-09-05 15:21 | CT ---
EXAMINATION: Chest wo Cont SEX: Female AGE: 65 years CLINICAL HISTORY: 65-year-old female "tested COVID +" (now emergency department with worsening sx.). Scan technique: Volume acquisition of data unenhanced CT scan of the chest (bony thorax, lungs and mediastinum) obtained with the patient lying supine on the Siemens multi slice scanner [place], [place]. All data archived in the PACS system for storage, reformatting axial/sagittal/coronal planes and study (lung/mediastinal windows). Interpretation: Abnormal. 1. *Multiple small peripheral "groundglass" densities (subpleural interstitial infiltrates/fibrosis) scattered throughout both lung randolph. Appearance characteristic with the COVID virus infection or pneumonia. 2. Normal cardiac silhouette (size and configuration). No pulmonary vascular congestion, alveolar edema or dependent pleural effusion. 3. No lung mass or significant hilar/mediastinal lymphadenopathy. 4. No alveolar infiltrates/consolidation or air bronchograms. Midline tracheal bronchial airway unremarkable. 5. Normal caliber thoracic aorta. Osteopenia; marginal spondylosis dorsal spine.
[2020-09-05] MEDS ORDERED: Docusate Sodium 100 MG Cap PO PRN (16:13)
[2020-09-05] MEDS ORDERED: oxyCODONE 5 MG Tab PO PRN (16:13)
[2020-09-05] MEDS: Sodium Chloride 0.9% 1,000 ML IV SCH (16:35)
--- NOTE | 2020-09-05 16:57 | PCM.HP ---
H&P History of Present Illness - General Date of Service: 09/05/20 Admit Problem/Dx: Admission Diagnosis/Problem Admission Diagnosis/Problem Acute kidney injury Source of Information: Patient History Limitations: Reports: No Limitations - History of Present Illness Initial Comments - Free Text/Narative: 65 year-old female with a medical history of type 2 diabetes, hypertension and right BKA who presented with complains of generalized weakness, cough, body pains. Patient tested positive for COVID-19 on 08/28/2020 and has been on isolation. Over the past 2 days, she has been having cough, shortness of breath and dry heaving. She also reports sharp pain in her lower chest, right upper quadrant and back. She has had very poor appetite with poor oral intake. She denies fever, diarrhea, leg swelling, melena or hematochezia, dysuria or frequency. Due to her body pains and respiratory symptoms she came to the ER. Labs was notable for hb of 9.7 and creatinine of 2.64. CT scan showed multiple small peripheral ground glass opacities consistent with COVID-19 pneumonia - Related Data Allergies/Adverse Reactions: Allergies Allergy/AdvReac Type Severity Reaction Status Date / Time No Known Allergies Allergy Verified 09/05/20 12:05 Home Medications: Home Meds Insulin Detemir [Levemir Flexpen] 25 unit SQ DAILY 02/24/14 [History] Acetaminophen [Tylenol] 650 mg PO Q4HR PRN 02/02/15 [History] Ibuprofen [Motrin] 400 mg PO Q6HR PRN 02/02/15 [History] Multivitamin [Multivitamins] 1 tab PO DAILY 02/02/15 [History] Calcium Carbonate/Vitamin D3 [Os-Jermain 500+D] 1 tab PO DAILY 02/14/15 [History] atorvaSTATin [Lipitor] 10 mg PO DAILY 07/26/18 [History] Aspirin [Aspirin EC] 325 mg PO DAILY 09/05/20 [History] Losartan [Cozaar] 25 mg PO DAILY 09/05/20 [History] Past Medical History HEENT History: Reports: Cataract, Impaired Vision Other HEENT History: wears glasses Cardiovascular History: Reports: CAD, Hypertension Respiratory History: Reports: Bronchitis, Recurrent Gastrointestinal History: Reports: None Genitourinary History: Reports: None 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 Musculoskeletal History: Reports: Arthritis Other Musculoskeletal History: right below the knee amputation Neurological History: Reports: None Psychiatric History: Reports: None Endocrine/Metabolic History: Reports: Diabetes, Type II Hematologic History: Reports: None Immunologic History: Reports: None Oncologic (Cancer) History: Reports: None Dermatologic History: Reports: None - Infectious Disease History Infectious Disease History: Reports: Chicken Pox, Measles, Mumps, Novel Coronavirus - Past Surgical History Head Surgeries/Procedures: Reports: None HEENT Surgical History: Reports: Cataract Surgery Cardiovascular Surgical History: Reports: None Respiratory Surgical History: Reports: None GI Surgical History: Reports: Appendectomy, Cholecystectomy Endocrine Surgical History: Reports: None Neurological Surgical History: Reports: None Musculoskeletal Surgical History: Reports: Amputation Dermatological Surgical History: Reports: None Social & Family History - Family History Family Medical History: Noncontributory - Tobacco Use Tobacco Use Status *Q: Never Tobacco User - Caffeine Use Caffeine Use: Reports: Coffee, Soda, Tea - Recreational Drug Use Recreational Drug Use: No - Living Situation & Occupation Living situation: Reports: with Family Occupation: Disabled H&P Review of Systems - Review of Systems: Review Of Systems: See Below General: Reports: Weakness HEENT: Reports: No Symptoms Pulmonary: Reports: Shortness of Breath, Cough Cardiovascular: Reports: No Symptoms Gastrointestinal: Reports: Abdominal Pain, Nausea, Vomiting Genitourinary: Reports: No Symptoms Musculoskeletal: Reports: No Symptoms Skin: Reports: No Symptoms Psychiatric: Reports: No Symptoms Neurological: Reports: No Symptoms Hematologic/Lymphatic: Reports: No Symptoms Immunologic: Reports: No Symptoms Exam - Exam Exam: See Below - Vital Signs Vital Signs: Last Vital Signs Temp 98.3 F 09/05/20 15:13 Pulse 86 09/05/20 16:41 Resp 18 09/05/20 16:41 BP 168/75 H 09/05/20 16:41 Pulse Ox 98 09/05/20 16:41 Weight: 150 lb 1.6 oz - Exam General: Alert, Oriented, 4 HEENT: PERRLA, Hearing Intact, Mucosa Moist & [place], Nares Patent, Normal Nasal Septum, Posterior Pharynx Clear, Conjunctiva Clear, EOMI, EACs Clear, TMs Clear Neck: Supple, Trachea Midline, 2 Lungs: Clear to Auscultation, Normal Respiratory Effort Cardiovascular: Regular Rate, Regular Rhythm GI/Abdominal Exam: Normal Bowel Sounds, Soft, No Organomegaly, No Distention, No Abnormal Bruit, No Mass, Pelvis Stable, Tender Back Exam: Normal Inspection, Full Range of Motion, NT Extremities: Normal Inspection, Normal Range of Motion, Non-Tender, No Pedal Edema, Normal Capillary Refill Skin: Warm, Dry, Intact Neurological: Cranial Nerves Intact, Reflexes Equal Bilateral Neuro Extensive - Mental Status: Alert, Oriented x3, Normal Mood/Affect, Normal Cognition Neuro Extensive - Motor, Sensory, Reflexes: CN II-XII Intact, Normal Gait, Normal Reflexes Psychiatric: Alert, Normal Affect, Normal Mood - Patient Data Lab Results Last 24 hrs: Laboratory Results - last 24 hr 09/05/20 09/05/20 09/05/20 Range/Units 13:00 13:00 13:00 WBC 9.2 (5.0-10.0) 10^3/uL RBC 3.08 L (4.2-5.4) 10^6/uL Hgb 9.7 L (12.0-16.0) g/dL Hct 29.5 L (37.0-47.0) % MCV 95.8 (80-100) fL MCH 31.5 (27.0-34.0) pg MCHC 32.9 L (33.0-35.0) g/dL Plt Count 131 L (150-450) 10^3/uL Neut % (Auto) 85.0 H (42.2-75.2) % Lymph % (Auto) 8.9 L (20.5-50.1) % [place] % (Auto) 5.8 (2-8) % Eos % (Auto) 0.2 L (1.0-3.0) % Baso % (Auto) 0.1 (0.0-1.0) % D-Dimer, Quantitative 340 (0-400) ng/mL Sodium 140 (136-145) mmol/L Potassium 4.1 (3.5-5.1) mmol/L Chloride 109 H (98-107) mmol/L Carbon Dioxide 15 L (21-32) mmol/L Anion Gap 20.1 H (7-13) mEq/L BUN 39 H (7-18) mg/dL Creatinine 2.64 H (0.55-1.02) mg/dL Est Cr Clr Drug Dosing 17.34 mL/min Estimated GFR (MDRD) 18 BUN/Creatinine Ratio 14.8 (No establ ref range) Glucose 121 H (74-99) mg/dL POC Glucose (70-105) mg/dl Calcium 8.1 L (8.5-10.1) mg/dL Total Bilirubin 0.3 (0.2-1.0) mg/dL AST 23 (15-37) U/L ALT 16 (14-59) U/L Alkaline Phosphatase 101 (46-116) U/L Lactate Dehydrogenase 198 (81-234) U/L C-Reactive Protein 12.6 H (0.0-0.9) mg/dL B-Natriuretic Peptide 77 (0-100) pg/ml Total Protein 7.6 (6.4-8.2) g/dL Albumin 2.3 L (3.4-5.0) g/dL Globulin 5.3 Albumin/Globulin Ratio 0.43 10/28/20 Range/Units 16:28 WBC (5.0-10.0) 10^3/uL RBC (4.2-5.4) 10^6/uL Hgb (12.0-16.0) g/dL Hct (37.0-47.0) % MCV (80-100) fL MCH (27.0-34.0) pg MCHC (33.0-35.0) g/dL Plt Count (150-450) 10^3/uL Neut % (Auto) (42.2-75.2) % Lymph % (Auto) (20.5-50.1) % [place] % (Auto) (2-8) % Eos % (Auto) (1.0-3.0) % Baso % (Auto) (0.0-1.0) % D-Dimer, Quantitative (0-400) ng/mL Sodium (136-145) mmol/L Potassium (3.5-5.1) mmol/L Chloride (98-107) mmol/L Carbon Dioxide (21-32) mmol/L Anion Gap (7-13) mEq/L BUN (7-18) mg/dL Creatinine (0.55-1.02) mg/dL Est Cr Clr Drug Dosing mL/min Estimated GFR (MDRD) BUN/Creatinine Ratio (No establ ref range) Glucose (74-99) mg/dL POC Glucose 123 H (70-105) mg/dl Calcium (8.5-10.1) mg/dL Total Bilirubin (0.2-1.0) mg/dL AST (15-37) U/L ALT (14-59) U/L Alkaline Phosphatase (46-116) U/L Lactate Dehydrogenase (81-234) U/L C-Reactive Protein (0.0-0.9) mg/dL B-Natriuretic Peptide (0-100) pg/ml Total Protein (6.4-8.2) g/dL Albumin (3.4-5.0) g/dL Globulin Albumin/Globulin Ratio Result Diagrams: 09/05/20 13:00 09/05/20 13:00 Problem List Initiated/Reviewed/Updated: Yes Orders Last 24hrs: Active Orders 24 hr Category Date Time Status Admission Diagnosis [ADT] Stat ADT 09/05/20 14:35 Ordered Admission Status [Patient Status] [ADT] Routine ADT 09/05/20 14:35 Active Antiembolic Devices [RC] PER UNIT ROUTINE Care 09/05/20 16:15 Active Blood Glucose Check, Bedside [RC] QIDACANDBED Care 09/05/20 16:13 Active Influenza Vaccine Charge [RC] .DISCHARGE Care 09/05/20 16:21 Active Intake and Output [RC] QSHIFT Care 09/05/20 16:13 Active Oxygen Therapy [RC] PRN Care 09/05/20 16:13 Active Up to Chair [RC] ASDIRECTED Care 09/05/20 16:13 Active VTE/DVT Education [RC] PER UNIT ROUTINE Care 09/05/20 16:13 Active Vital Signs [RC] Q4H Care 09/05/20 16:13 Active Consistent Carbohydrate Diet [DIET] Diet 09/05/20 Dinner Active CBC WITH AUTO DIFF [HEME] AM Lab 09/06/20 05:11 Ordered CBC WITH AUTO DIFF [HEME] AM Lab 09/07/20 05:11 Ordered CBC WITH AUTO DIFF [HEME] AM Lab 09/08/20 05:11 Ordered COMPREHENSIVE METABOLIC PN,CMP [CHEM] AM Lab 09/06/20 05:11 Ordered D-DIMER QUANTITATIVE [COAG] AM Lab 09/06/20 05:11 Ordered D-DIMER QUANTITATIVE [COAG] AM Lab 09/07/20 05:11 Ordered D-DIMER QUANTITATIVE [COAG] AM Lab 09/08/20 05:11 Ordered LACTATE DEHYDROGENASE,LDH [CHEM] AM Lab 09/06/20 05:11 Ordered LACTATE DEHYDROGENASE,LDH [CHEM] AM Lab 09/07/20 05:11 Ordered LACTATE DEHYDROGENASE,LDH [CHEM] AM Lab 09/08/20 05:11 Ordered PROCALCITONIN [REF] AM Lab 09/06/20 05:11 Ordered Acetaminophen [TylenoL] Med 09/05/20 16:13 Active 650 mg PO Q4H PRN Aspirin [Ecotrin] Med 09/06/20 09:00 Active 325 mg PO DAILY Calcium Carbonate/Vitamin D3 [Calcium Carbonate/Vitamin Med 09/06/20 09:00 Active D 1250 MG-200 Unit] 1 tab PO DAILY Docusate Sodium [Colace] Med 09/05/20 16:13 Active 100 mg PO BID PRN Heparin Sodium Med 09/05/20 22:00 Active 5,000 units SUBCUT Q8HR Insulin Glarg,Human.Rec.Analog [LantUS] Med 09/06/20 09:00 Active 25 unit SUBCUT DAILY Multivitamins,Therapeutic [Thera] Med 09/06/20 09:00 Active 1 each PO DAILY Pharmacy to Dose - InFluenza V [Pharmacy to Dose - Med 09/06/20 09:00 Active InFluenza Vaccine] 1 each IM DAILY Sodium Chloride 0.9% [Normal Saline] 1,000 ml Med 09/05/20 16:15 Active IV ASDIRECTED Zolpidem [Ambien] Med 09/05/20 16:13 Active 5 mg PO BEDTIME PRN atorvaSTATin [Lipitor] Med 09/06/20 09:00 Active 10 mg PO DAILY dexAMETHasone [Dexamethasone] Med 09/05/20 16:30 Active 6 mg IVPUSH DAILY oxyCODONE Med 09/05/20 16:13 Active 5 mg PO Q4H PRN Antiembolic Hose [OM.PC] Per Unit Routine Oth 09/05/20 16:14 Ordered Isolation [COMM] Stat Oth 09/05/20 16:17 Active Resuscitation Status Routine Resus Stat 09/05/20 16:13 Ordered Medication Orders Acetaminophen (Tylenol) 650 mg PO Q4H PRN PRN Reason: Pain (Mild 1-3)/fever Aspirin (Ecotrin) 325 mg PO DAILY [facility] Atorvastatin Calcium (Lipitor) 10 mg PO DAILY [facility] Calcium Carbonate (Calcium Carbonate/Vitamin D 1250 Mg-200 Unit) 1 tab PO DAILY [facility] Dexamethasone (Dexamethasone) 6 mg IVPUSH DAILY [facility] Stop: 09/14/20 09:01 Docusate Sodium (Colace) 100 mg PO BID PRN PRN Reason: Constipation Heparin Sodium (Porcine) (Heparin Sodium) 5,000 units SUBCUT Q8HR [facility] Sodium Chloride (Normal Saline) 1,000 mls @ 100 mls/hr IV ASDIRECTED [facility] Last Admin: 09/05/20 16:35 Dose: 100 mls/hr Documented by: PAUL Influenza Virus Vaccine (Pharmacy To Dose - Influenza Vaccine) 1 each IM DAILY [facility] Insulin Glargine (Lantus) 25 unit SUBCUT DAILY [facility] Multivitamins (Thera) 1 each PO DAILY [facility] Oxycodone HCl (Oxycodone) 5 mg PO Q4H PRN PRN Reason: Pain (moderate 4-6) Zolpidem Tartrate (Ambien) 5 mg PO BEDTIME PRN PRN Reason: Sleep Assessment/Plan Comment:: COVID-19 associated pneumonia - Not hyopoxic - Start decadron 6 mg IV daily - Daily COVID labs GAYLE Creatinine of 2.64. No known recent baseline. - Start IVF normal saline 100 cc/h - Strict I/O - Daily BMP Chronic anemia Hb at baseline - Repeat CBC in a.m. Hypertension - Hold ARB for now - PRN hydralazine Type 2 DM - Resume home insulin regimen
[2020-09-05] MEDS: Dexamethasone 4 MG/ML SDV IVPUSH SCH (17:08)
[2020-09-05] MEDS: Heparin Sodium 5,000 Units/ML Vial SUBCUT SCH (21:14)
[2020-09-05] MEDS: Acetaminophen 325 MG Tab PO PRN (21:14)
[2020-09-05] MEDS: hydrALAZINE 25 MG Tab PO PRN (21:19)
[2020-09-06] MEDS: Sodium Chloride 0.9% 1,000 ML IV SCH ×3 (02:44→23:04)
[2020-09-06] MEDS: Heparin Sodium 5,000 Units/ML Vial SUBCUT SCH ×4 (06:28→23:34)
[2020-09-06 07:12] LABS: ANION GAP 20.7 mEq/L (7-13)
[2020-09-06] MEDS: Calcium Carbonate/Vitamin D3 1250 MG-200 Unit Tab PO SCH ×2 (07:45→08:24)
[2020-09-06] MEDS: Multivitamins,Therapeutic Tab PO SCH ×2 (07:46→08:25)
[2020-09-06] MEDS: atorvaSTATin 10 MG Tab PO SCH ×2 (07:46→08:25)
[2020-09-06] MEDS: Aspirin 325 MG Tab.EC PO SCH ×2 (07:46→08:24)
[2020-09-06] MEDS: Acetaminophen 325 MG Tab PO PRN (07:48)
[2020-09-06] MEDS: Dexamethasone 4 MG/ML SDV IVPUSH SCH ×2 (07:50→08:24)
[2020-09-06] MEDS: Insulin Glarg,Human.Rec.Analog 100 Unit/ML SUBCUT SCH ×2 (07:54→08:24)
[2020-09-06] MEDS ORDERED: INSULIN DETEMIR 25 UNIT SQ SCH (09:00)
--- NOTE | 2020-09-06 10:37 | PCM.PN ---
- General Info Date of Service: 09/06/20 Admission Dx/Problem (Free Text): Admission Diagnosis/Problem Admission Diagnosis/Problem Acute kidney injury Subjective Update: Patient seen and examined today. Afebrile overnight. Still complains of coughing. Functional Status: Reports: Pain Controlled - Review of Systems General: Reports: Weakness HEENT: Reports: No Symptoms Pulmonary: Reports: Shortness of Breath, Cough Cardiovascular: Reports: No Symptoms Gastrointestinal: Reports: No Symptoms Genitourinary: Reports: No Symptoms Musculoskeletal: Reports: No Symptoms Skin: Reports: No Symptoms Psychiatric: Reports: No Symptoms - Patient Data Vitals - Most Recent: Last Vital Signs Temp 98.2 F 09/06/20 07:58 Pulse 62 09/06/20 07:58 Resp 20 09/06/20 07:58 BP 143/107 H 09/06/20 07:58 Pulse Ox 96 09/06/20 07:58 Weight - Most Recent: 150 lb 1.6 oz I&O - Last 24 Hours: Intake & Output 09/05/20 09/06/20 09/06/20 22:59 06:59 14:59 Intake Total 240 Balance 240 Lab Results Last 24 Hours: Laboratory Results - last 24 hr 09/05/20 09/05/20 09/05/20 Range/Units 13:00 13:00 13:00 WBC 9.2 (5.0-10.0) 10^3/uL RBC 3.08 L (4.2-5.4) 10^6/uL Hgb 9.7 L (12.0-16.0) g/dL Hct 29.5 L (37.0-47.0) % MCV 95.8 (80-100) fL MCH 31.5 (27.0-34.0) pg MCHC 32.9 L (33.0-35.0) g/dL Plt Count 131 L (150-450) 10^3/uL Neut % (Auto) 85.0 H (42.2-75.2) % Lymph % (Auto) 8.9 L (20.5-50.1) % [place] % (Auto) 5.8 (2-8) % Eos % (Auto) 0.2 L (1.0-3.0) % Baso % (Auto) 0.1 (0.0-1.0) % D-Dimer, Quantitative 340 (0-400) ng/mL Sodium 140 (136-145) mmol/L Potassium 4.1 (3.5-5.1) mmol/L Chloride 109 H (98-107) mmol/L Carbon Dioxide 15 L (21-32) mmol/L Anion Gap 20.1 H (7-13) mEq/L BUN 39 H (7-18) mg/dL Creatinine 2.64 H (0.55-1.02) mg/dL Est Cr Clr Drug Dosing 17.34 mL/min Estimated GFR (MDRD) 18 BUN/Creatinine Ratio 14.8 (No establ ref range) Glucose 121 H (74-99) mg/dL POC Glucose (70-105) mg/dl Calcium 8.1 L (8.5-10.1) mg/dL Total Bilirubin 0.3 (0.2-1.0) mg/dL AST 23 (15-37) U/L ALT 16 (14-59) U/L Alkaline Phosphatase 101 (46-116) U/L Lactate Dehydrogenase 198 (81-234) U/L C-Reactive Protein 12.6 H (0.0-0.9) mg/dL B-Natriuretic Peptide 77 (0-100) pg/ml Total Protein 7.6 (6.4-8.2) g/dL Albumin 2.3 L (3.4-5.0) g/dL Globulin 5.3 Albumin/Globulin Ratio 0.43 09/05/20 09/05/20 09/06/20 Range/Units 16:28 21:18 06:33 WBC 7.0 (5.0-10.0) 10^3/uL RBC 2.90 L (4.2-5.4) 10^6/uL Hgb 9.1 L (12.0-16.0) g/dL Hct 27.9 L (37.0-47.0) % MCV 96.2 (80-100) fL MCH 31.4 (27.0-34.0) pg MCHC 32.6 L (33.0-35.0) g/dL Plt Count 148 L (150-450) 10^3/uL Neut % (Auto) 85.1 H (42.2-75.2) % Lymph % (Auto) 11.9 L (20.5-50.1) % [place] % (Auto) 3.0 (2-8) % Eos % (Auto) 0.0 L (1.0-3.0) % Baso % (Auto) 0.0 (0.0-1.0) % D-Dimer, Quantitative (0-400) ng/mL Sodium (136-145) mmol/L Potassium (3.5-5.1) mmol/L Chloride (98-107) mmol/L Carbon Dioxide (21-32) mmol/L Anion Gap (7-13) mEq/L BUN (7-18) mg/dL Creatinine (0.55-1.02) mg/dL Est Cr Clr Drug Dosing mL/min Estimated GFR (MDRD) BUN/Creatinine Ratio (No establ ref range) Glucose (74-99) mg/dL POC Glucose 123 H 168 H (70-105) mg/dl Calcium (8.5-10.1) mg/dL Total Bilirubin (0.2-1.0) mg/dL AST (15-37) U/L ALT (14-59) U/L Alkaline Phosphatase (46-116) U/L Lactate Dehydrogenase (81-234) U/L C-Reactive Protein (0.0-0.9) mg/dL B-Natriuretic Peptide (0-100) pg/ml Total Protein (6.4-8.2) g/dL Albumin (3.4-5.0) g/dL Globulin Albumin/Globulin Ratio 09/06/20 09/06/20 09/06/20 Range/Units 06:33 06:33 06:36 WBC (5.0-10.0) 10^3/uL RBC (4.2-5.4) 10^6/uL Hgb (12.0-16.0) g/dL Hct (37.0-47.0) % MCV (80-100) fL MCH (27.0-34.0) pg MCHC (33.0-35.0) g/dL Plt Count (150-450) 10^3/uL Neut % (Auto) (42.2-75.2) % Lymph % (Auto) (20.5-50.1) % [place] % (Auto) (2-8) % Eos % (Auto) (1.0-3.0) % Baso % (Auto) (0.0-1.0) % D-Dimer, Quantitative 444 H (0-400) ng/mL Sodium 140 (136-145) mmol/L Potassium 4.7 (3.5-5.1) mmol/L Chloride 111 H (98-107) mmol/L Carbon Dioxide 13 L (21-32) mmol/L Anion Gap 20.7 H (7-13) mEq/L BUN 41 H (7-18) mg/dL Creatinine 2.30 H (0.55-1.02) mg/dL Est Cr Clr Drug Dosing 19.90 mL/min Estimated GFR (MDRD) 21 BUN/Creatinine Ratio 17.8 (No establ ref range) Glucose 154 H (74-99) mg/dL POC Glucose 177 H (70-105) mg/dl Calcium 7.9 L (8.5-10.1) mg/dL Total Bilirubin 0.2 (0.2-1.0) mg/dL AST 21 (15-37) U/L ALT 16 (14-59) U/L Alkaline Phosphatase 95 (46-116) U/L Lactate Dehydrogenase 197 (81-234) U/L C-Reactive Protein (0.0-0.9) mg/dL B-Natriuretic Peptide (0-100) pg/ml Total Protein 7.4 (6.4-8.2) g/dL Albumin 2.2 L (3.4-5.0) g/dL Globulin 5.2 Albumin/Globulin Ratio 0.42 10/29/20 Range/Units 07:37 WBC (5.0-10.0) 10^3/uL RBC (4.2-5.4) 10^6/uL Hgb (12.0-16.0) g/dL Hct (37.0-47.0) % MCV (80-100) fL MCH (27.0-34.0) pg MCHC (33.0-35.0) g/dL Plt Count (150-450) 10^3/uL Neut % (Auto) (42.2-75.2) % Lymph % (Auto) (20.5-50.1) % [place] % (Auto) (2-8) % Eos % (Auto) (1.0-3.0) % Baso % (Auto) (0.0-1.0) % D-Dimer, Quantitative (0-400) ng/mL Sodium (136-145) mmol/L Potassium (3.5-5.1) mmol/L Chloride (98-107) mmol/L Carbon Dioxide (21-32) mmol/L Anion Gap (7-13) mEq/L BUN (7-18) mg/dL Creatinine (0.55-1.02) mg/dL Est Cr Clr Drug Dosing mL/min Estimated GFR (MDRD) BUN/Creatinine Ratio (No establ ref range) Glucose (74-99) mg/dL POC Glucose 206 H (70-105) mg/dl Calcium (8.5-10.1) mg/dL Total Bilirubin (0.2-1.0) mg/dL AST (15-37) U/L ALT (14-59) U/L Alkaline Phosphatase (46-116) U/L Lactate Dehydrogenase (81-234) U/L C-Reactive Protein (0.0-0.9) mg/dL B-Natriuretic Peptide (0-100) pg/ml Total Protein (6.4-8.2) g/dL Albumin (3.4-5.0) g/dL Globulin Albumin/Globulin Ratio Med Orders - Current: Current Medications Acetaminophen (Tylenol) 650 mg PO Q4H PRN PRN Reason: Pain (Mild 1-3)/fever Last Admin: 09/06/20 07:48 Dose: 650 mg Documented by: Aspirin (Ecotrin) 325 mg PO DAILY [facility] Last Admin: 09/06/20 08:24 Dose: Not Given Documented by: Atorvastatin Calcium (Lipitor) 10 mg PO DAILY [facility] Last Admin: 09/06/20 08:25 Dose: Not Given Documented by: Calcium Carbonate (Calcium Carbonate/Vitamin D 1250 Mg-200 Unit) 1 tab PO DAILY [facility] Last Admin: 09/06/20 08:24 Dose: Not Given Documented by: Dexamethasone (Dexamethasone) 6 mg IVPUSH DAILY [facility] Stop: 09/14/20 09:01 Last Admin: 09/06/20 08:24 Dose: Not Given Documented by: Docusate Sodium (Colace) 100 mg PO BID PRN PRN Reason: Constipation Heparin Sodium (Porcine) (Heparin Sodium) 5,000 units SUBCUT Q8HR [facility] Last Admin: 09/06/20 06:28 Dose: 5,000 units Documented by: Hydralazine HCl (Apresoline) 25 mg PO Q8H PRN PRN Reason: Hypertension Last Admin: 09/05/20 21:19 Dose: 25 mg Documented by: Sodium Chloride (Normal Saline) 1,000 mls @ 100 mls/hr IV ASDIRECTED [facility] Last Admin: 09/06/20 02:44 Dose: 100 mls/hr Documented by: Influenza Virus Vaccine (Pharmacy To Dose - Influenza Vaccine) 1 each IM DAILY [facility] Insulin Glargine (Lantus) 25 unit SUBCUT DAILY [facility] Last Admin: 09/06/20 08:24 Dose: Not Given Documented by: Multivitamins (Thera) 1 each PO DAILY [facility] Last Admin: 09/06/20 08:25 Dose: Not Given Documented by: Oxycodone HCl (Oxycodone) 5 mg PO Q4H PRN PRN Reason: Pain (moderate 4-6) Zolpidem Tartrate (Ambien) 5 mg PO BEDTIME PRN PRN Reason: Sleep - Exam General: Alert, Oriented HEENT: Pupils Equal, Pupils Reactive, EOMI, Mucous Membr. Moist/[place] Neck: Supple Lungs: Crackles Cardiovascular: Regular Rate, Regular Rhythm GI/Abdominal Exam: Normal Bowel Sounds, Soft, Non-Tender, No Organomegaly, No Distention, No Abnormal Bruit, No Mass, Pelvis Stable Back Exam: Normal Inspection, Full Range of Motion Extremities: Normal Inspection, Normal Range of Motion, Non-Tender, No Pedal Edema, Normal Capillary Refill Skin: Warm, Dry, Intact Neurological: No New Focal Deficit Psy/Mental Status: Alert, Normal Affect, Normal Mood Sepsis Event Note - Evaluation Sepsis Screening Result: No Definite Risk - Focused Exam Vital Signs: Vital Signs Temp Pulse Resp BP Pulse Ox 09/06/20 07:58 98.2 F 62 20 143/107 H 96 09/06/20 04:00 97.6 F 58 L 20 147/81 H 97 09/06/20 00:00 97.0 F 63 18 134/78 96 - Problem List Review Problem List Initiated/Reviewed/Updated: Yes - My Orders Last 24 Hours: My Active Orders 09/05/20 16:13 Blood Glucose Check, Bedside [RC] QIDACANDBED Intake and Output [RC] QSHIFT Oxygen Therapy [RC] PRN Up to Chair [RC] ASDIRECTED VTE/DVT Education [RC] PER UNIT ROUTINE Vital Signs [RC] Q4H Acetaminophen [TylenoL] 650 mg PO Q4H PRN Docusate Sodium [Colace] 100 mg PO BID PRN Zolpidem [Ambien] 5 mg PO BEDTIME PRN oxyCODONE 5 mg PO Q4H PRN Resuscitation Status Routine 09/05/20 16:14 Antiembolic Hose [OM.PC] Per Unit Routine 09/05/20 16:15 Antiembolic Devices [RC] PER UNIT ROUTINE Sodium Chloride 0.9% [Normal Saline] 1,000 ml IV ASDIRECTED 09/05/20 16:17 Isolation [COMM] Stat 09/05/20 16:21 Influenza Vaccine Charge [RC] .DISCHARGE 09/05/20 16:30 dexAMETHasone [Dexamethasone] 6 mg IVPUSH DAILY 09/05/20 Dinner Consistent Carbohydrate Diet [DIET] 09/05/20 19:45 hydrALAZINE [Apresoline] 25 mg PO Q8H PRN 09/05/20 22:00 Heparin Sodium 5,000 units SUBCUT Q8HR 09/06/20 06:33 PROCALCITONIN [REF] AM 09/06/20 09:00 Aspirin [Ecotrin] 325 mg PO DAILY Calcium Carbonate/Vitamin D3 [Calcium Carbonate/Vitamin D 1250 MG-200 Unit] 1 tab PO DAILY Insulin Glarg,Human.Rec.Analog [LantUS] 25 unit SUBCUT DAILY Multivitamins,Therapeutic [Thera] 1 each PO DAILY Pharmacy to Dose - InFluenza V [Pharmacy to Dose - InFluenza Vaccine] 1 each IM DAILY atorvaSTATin [Lipitor] 10 mg PO DAILY 09/06/20 10:32 Dietary Supplements [RC] TIDMEALS 09/07/20 05:11 CBC WITH AUTO DIFF [HEME] AM D-DIMER QUANTITATIVE [COAG] AM LACTATE DEHYDROGENASE,LDH [CHEM] AM 09/08/20 05:11 CBC WITH AUTO DIFF [HEME] AM D-DIMER QUANTITATIVE [COAG] AM LACTATE DEHYDROGENASE,LDH [CHEM] AM - Plan Plan:: COVID-19 associated pneumonia - Not hyopoxic -Continue decadron 6 mg IV daily - Daily COVID labs GAYLE Creatinine of 2.64. No known recent baseline. - Continue IVF normal saline 100 cc/h - Strict I/O - Daily BMP. Renal status slowly improving. Chronic anemia Hb at baseline -CBC daily Hypertension - Hold ARB for now - PRN hydralazine Type 2 DM - Resume home insulin regimen
[2020-09-06] MEDS: hydrALAZINE 25 MG Tab PO PRN (20:44)
[2020-09-06] MEDS: Zolpidem 5 MG Tab PO PRN (20:44)
[2020-09-07] MEDS: Heparin Sodium 5,000 Units/ML Vial SUBCUT SCH ×3 (06:07→21:50)
[2020-09-07 09:02] LABS: ANION GAP 20.9 mEq/L (7-13)
[2020-09-07] MEDS: Aspirin 325 MG Tab.EC PO SCH (09:15)
[2020-09-07] MEDS: Multivitamins,Therapeutic Tab PO SCH (09:16)
[2020-09-07] MEDS: Calcium Carbonate/Vitamin D3 1250 MG-200 Unit Tab PO SCH (09:16)
[2020-09-07] MEDS: atorvaSTATin 10 MG Tab PO SCH (09:16)
[2020-09-07] MEDS: Dexamethasone 4 MG/ML SDV IVPUSH SCH (09:17)
[2020-09-07] MEDS: Insulin Glarg,Human.Rec.Analog 100 Unit/ML SUBCUT SCH (09:21)
[2020-09-07] MEDS: Sodium Chloride 0.9% 1,000 ML IV SCH ×2 (09:45→19:52)
[2020-09-07] MEDS: hydrALAZINE 25 MG Tab PO PRN ×2 (10:50→20:09)
[2020-09-07] MEDS ORDERED: Glucagon,Human Recombinant 1 MG Vial IM PRN (15:38)
[2020-09-07] MEDS ORDERED: 50% Dextrose in Water 50 ML Syringe IV PRN (15:38)
[2020-09-07] MEDS ORDERED: Insulin Lispro 100 Units/ML 3 ML Vial SUBCUT ONE (15:39)
[2020-09-07] MEDS: Insulin Lispro 100 Units/ML 3 ML Vial SUBCUT SCH ×2 (17:58→21:53)
--- NOTE | 2020-09-07 21:26 | PCM.PN ---
- General Info Date of Service: 09/07/20 Admission Dx/Problem (Free Text): Admission Diagnosis/Problem Admission Diagnosis/Problem Acute kidney injury Subjective Update: Patient seen and examined today. Afebrile overnight. Still complains of coughing but improving. Functional Status: Reports: Pain Controlled - Review of Systems General: Reports: No Symptoms HEENT: Reports: No Symptoms Pulmonary: Reports: Cough Cardiovascular: Reports: No Symptoms Gastrointestinal: Reports: No Symptoms Genitourinary: Reports: No Symptoms Musculoskeletal: Reports: No Symptoms Skin: Reports: No Symptoms Neurological: Reports: No Symptoms Psychiatric: Reports: No Symptoms - Patient Data Vitals - Most Recent: Last Vital Signs Temp 98.8 F 09/07/20 19:55 Pulse 77 09/07/20 19:55 Resp 20 09/07/20 19:55 BP 185/66 H 09/07/20 20:09 Pulse Ox 98 09/07/20 19:55 Weight - Most Recent: 150 lb 1.6 oz I&O - Last 24 Hours: Intake & Output 09/07/20 09/07/20 09/07/20 06:59 14:59 22:59 Intake Total 4589 828 8491 Output Total 400 400 400 Balance 1482 160 932 Lab Results Last 24 Hours: Laboratory Results - last 24 hr 09/06/20 09/07/20 09/07/20 Range/Units 06:33 06:00 06:00 WBC 9.3 (5.0-10.0) 10^3/uL RBC 2.56 L (4.2-5.4) 10^6/uL Hgb 8.0 L (12.0-16.0) g/dL Hct 24.4 L (37.0-47.0) % MCV 95.3 (80-100) fL MCH 31.3 (27.0-34.0) pg MCHC 32.8 L (33.0-35.0) g/dL Plt Count 190 (150-450) 10^3/uL Neut % (Auto) 81.3 H (42.2-75.2) % Lymph % (Auto) 11.3 L (20.5-50.1) % [place] % (Auto) 7.3 (2-8) % Eos % (Auto) 0.0 L (1.0-3.0) % Baso % (Auto) 0.1 (0.0-1.0) % D-Dimer, Quantitative 571 H (0-400) ng/mL Sodium (136-145) mmol/L Potassium (3.5-5.1) mmol/L Chloride (98-107) mmol/L Carbon Dioxide (21-32) mmol/L Anion Gap (7-13) mEq/L BUN (7-18) mg/dL Creatinine (0.55-1.02) mg/dL Est Cr Clr Drug Dosing mL/min Estimated GFR (MDRD) Glucose (74-99) mg/dL POC Glucose (70-105) mg/dl Calcium (8.5-10.1) mg/dL Lactate Dehydrogenase (81-234) U/L Procalcitonin 0.07 (<0.10) ng/mL 09/07/20 09/07/20 09/07/20 Range/Units 06:00 06:00 08:13 WBC (5.0-10.0) 10^3/uL RBC (4.2-5.4) 10^6/uL Hgb (12.0-16.0) g/dL Hct (37.0-47.0) % MCV (80-100) fL MCH (27.0-34.0) pg MCHC (33.0-35.0) g/dL Plt Count (150-450) 10^3/uL Neut % (Auto) (42.2-75.2) % Lymph % (Auto) (20.5-50.1) % [place] % (Auto) (2-8) % Eos % (Auto) (1.0-3.0) % Baso % (Auto) (0.0-1.0) % D-Dimer, Quantitative (0-400) ng/mL Sodium 141 (136-145) mmol/L Potassium 3.9 (3.5-5.1) mmol/L Chloride 112 H (98-107) mmol/L Carbon Dioxide 12 L (21-32) mmol/L Anion Gap 20.9 H (7-13) mEq/L BUN 47 H (7-18) mg/dL Creatinine 2.23 H (0.55-1.02) mg/dL Est Cr Clr Drug Dosing 20.53 mL/min Estimated GFR (MDRD) 22 Glucose 133 H (74-99) mg/dL POC Glucose 128 H (70-105) mg/dl Calcium 7.3 L (8.5-10.1) mg/dL Lactate Dehydrogenase 211 (81-234) U/L Procalcitonin (<0.10) ng/mL 09/07/20 09/07/20 Range/Units 12:13 16:36 WBC (5.0-10.0) 10^3/uL RBC (4.2-5.4) 10^6/uL Hgb (12.0-16.0) g/dL Hct (37.0-47.0) % MCV (80-100) fL MCH (27.0-34.0) pg MCHC (33.0-35.0) g/dL Plt Count (150-450) 10^3/uL Neut % (Auto) (42.2-75.2) % Lymph % (Auto) (20.5-50.1) % [place] % (Auto) (2-8) % Eos % (Auto) (1.0-3.0) % Baso % (Auto) (0.0-1.0) % D-Dimer, Quantitative (0-400) ng/mL Sodium (136-145) mmol/L Potassium (3.5-5.1) mmol/L Chloride (98-107) mmol/L Carbon Dioxide (21-32) mmol/L Anion Gap (7-13) mEq/L BUN (7-18) mg/dL Creatinine (0.55-1.02) mg/dL Est Cr Clr Drug Dosing mL/min Estimated GFR (MDRD) Glucose (74-99) mg/dL POC Glucose 162 H 342 H (70-105) mg/dl Calcium (8.5-10.1) mg/dL Lactate Dehydrogenase (81-234) U/L Procalcitonin (<0.10) ng/mL Med Orders - Current: Current Medications Acetaminophen (Tylenol) 650 mg PO Q4H PRN PRN Reason: Pain (Mild 1-3)/fever Last Admin: 09/06/20 07:48 Dose: 650 mg Documented by: Aspirin (Ecotrin) 325 mg PO DAILY [facility] Last Admin: 09/07/20 09:15 Dose: 325 mg Documented by: Atorvastatin Calcium (Lipitor) 10 mg PO DAILY [facility] Last Admin: 09/07/20 09:16 Dose: 10 mg Documented by: Calcium Carbonate (Calcium Carbonate/Vitamin D 1250 Mg-200 Unit) 1 tab PO DAILY [facility] Last Admin: 09/07/20 09:16 Dose: 1 tab Documented by: Dexamethasone (Dexamethasone) 6 mg IVPUSH DAILY [facility] Stop: 09/14/20 09:01 Last Admin: 09/07/20 09:17 Dose: 6 mg Documented by: Dextrose/Water (Dextrose 50% In Water) 50 ml IV ASDIRECTED PRN PRN Reason: Hypoglycemia Docusate Sodium (Colace) 100 mg PO BID PRN PRN Reason: Constipation Glucagon (Glucagen) 1 mg IM ASDIRECTED PRN PRN Reason: Hypoglycemia Heparin Sodium (Porcine) (Heparin Sodium) 5,000 units SUBCUT Q8HR [facility] Last Admin: 09/07/20 13:42 Dose: 5,000 units Documented by: Hydralazine HCl (Apresoline) 25 mg PO Q8H PRN PRN Reason: Hypertension Last Admin: 09/07/20 20:09 Dose: 25 mg Documented by: Sodium Chloride (Normal Saline) 1,000 mls @ 100 mls/hr IV ASDIRECTED [facility] Last Admin: 09/07/20 19:52 Dose: 100 mls/hr Documented by: Influenza Virus Vaccine (Pharmacy To Dose - Influenza Vaccine) 1 each IM DAILY [facility] Last Admin: 09/07/20 09:17 Dose: Not Given Documented by: Insulin Glargine (Lantus) 25 unit SUBCUT DAILY [facility] Last Admin: 09/07/20 09:21 Dose: 25 units Documented by: Insulin Human Lispro (Humalog) 0 unit SUBCUT WITHMEALSANDBED [facility]; Protocol Last Admin: 09/07/20 17:58 Dose: 4 units Documented by: Multivitamins (Thera) 1 each PO DAILY [facility] Last Admin: 09/07/20 09:16 Dose: 1 each Documented by: Oxycodone HCl (Oxycodone) 5 mg PO Q4H PRN PRN Reason: Pain (moderate 4-6) Zolpidem Tartrate (Ambien) 5 mg PO BEDTIME PRN PRN Reason: Sleep Last Admin: 09/06/20 20:44 Dose: 5 mg Documented by: Discontinued Medications Insulin Human Lispro (Humalog) 0 unit SUBCUT WITHMEALSANDBED ONE; Protocol Stop: 09/07/20 15:40 Last Admin: 09/07/20 16:52 Dose: Not Given Documented by: - Exam General: Alert, Oriented HEENT: Pupils Equal, Pupils Reactive, EOMI, Mucous Membr. Moist/[place] Neck: Supple Lungs: Clear to Auscultation, Normal Respiratory Effort Cardiovascular: Regular Rate, Regular Rhythm GI/Abdominal Exam: Normal Bowel Sounds, Soft, Non-Tender, No Organomegaly, No Distention, No Abnormal Bruit, No Mass, Pelvis Stable Back Exam: Normal Inspection, Full Range of Motion Extremities: Normal Inspection, Normal Range of Motion, Non-Tender, No Pedal Edema, Normal Capillary Refill Skin: Warm, Dry, Intact Neurological: No New Focal Deficit Psy/Mental Status: Alert, Normal Affect, Normal Mood Sepsis Event Note - Evaluation Sepsis Screening Result: No Definite Risk - Focused Exam Vital Signs: Vital Signs Temp Pulse Resp BP BP Pulse Ox Pulse Ox 09/07/20 20:09 185/66 H 09/07/20 19:55 98.8 F 77 20 185/69 H 98 09/07/20 16:49 98.9 F 65 18 122/95 H 97 09/07/20 16:00 97 09/07/20 13:00 98.3 F 72 18 161/68 H 98 09/07/20 10:50 176/75 H 09/07/20 09:30 176/75 H - Problem List Review Problem List Initiated/Reviewed/Updated: Yes - My Orders Last 24 Hours: My Active Orders 09/07/20 15:38 Dextrose 50% in Water 50 ml IV ASDIRECTED PRN Glucagon,Human Recombinant [GlucaGen] 1 mg IM ASDIRECTED PRN 09/07/20 18:00 Insulin Lispro [HumaLOG] 0 unit SUBCUT WITHMEALSANDBED 09/08/20 05:11 CBC WITH AUTO DIFF [HEME] AM D-DIMER QUANTITATIVE [COAG] AM LACTATE DEHYDROGENASE,LDH [CHEM] AM - Plan Plan:: COVID-19 associated pneumonia - Not hyopoxic -Continue decadron 6 mg IV daily - Daily COVID labs [facility] Creatinine of 2.64. No known recent baseline. - Continue IVF normal saline 100 cc/h - Strict I/O - Daily BMP. Renal status slowly improving. Chronic anemia Hb at baseline -CBC daily Hypertension - Hold ARB for now - PRN hydralazine Type 2 DM - Resume home insulin regimen
[2020-09-07] MEDS: Zolpidem 5 MG Tab PO PRN (21:52)
[2020-09-07] MEDS ORDERED: hydrALAZINE 25 MG Tab PO ONE (23:42)
[2020-09-08] MEDS: Sodium Chloride 0.9% 1,000 ML IV SCH ×2 (05:56→17:10)
[2020-09-08] MEDS: hydrALAZINE 25 MG Tab PO PRN (06:00)
[2020-09-08] MEDS: Heparin Sodium 5,000 Units/ML Vial SUBCUT SCH ×3 (06:02→21:40)
[2020-09-08 07:09] LABS: ANION GAP 19.9 mEq/L (7-13)
[2020-09-08] MEDS: Insulin Lispro 100 Units/ML 3 ML Vial SUBCUT SCH ×4 (08:52→21:39)
[2020-09-08] MEDS: atorvaSTATin 10 MG Tab PO SCH (09:20)
[2020-09-08] MEDS: Acetaminophen 325 MG Tab PO PRN (09:20)
[2020-09-08] MEDS: Multivitamins,Therapeutic Tab PO SCH (09:20)
[2020-09-08] MEDS: Calcium Carbonate/Vitamin D3 1250 MG-200 Unit Tab PO SCH (09:20)
[2020-09-08] MEDS: Dexamethasone 4 MG/ML SDV IVPUSH SCH (09:22)
[2020-09-08] MEDS: Aspirin 325 MG Tab.EC PO SCH (09:26)
[2020-09-08] MEDS: Insulin Glarg,Human.Rec.Analog 100 Unit/ML SUBCUT SCH (09:28)
[2020-09-08] MEDS: amLODIPine 5 MG Tab PO SCH (12:44)
--- NOTE | 2020-09-08 13:48 | PCM.PN ---
- General Info Date of Service: 09/08/20 Admission Dx/Problem (Free Text): Admission Diagnosis/Problem Admission Diagnosis/Problem Acute kidney injury Subjective Update: Patient seen and examined today. Afebrile overnight. Cough is improving. Hemoglobin down to 7.5. Denies any bleeding. Functional Status: Reports: Pain Controlled - Review of Systems General: Reports: No Symptoms HEENT: Reports: No Symptoms Pulmonary: Reports: Cough Cardiovascular: Reports: No Symptoms Gastrointestinal: Reports: No Symptoms Genitourinary: Reports: No Symptoms Musculoskeletal: Reports: No Symptoms Skin: Reports: No Symptoms Neurological: Reports: No Symptoms Psychiatric: Reports: No Symptoms - Patient Data Vitals - Most Recent: Last Vital Signs Temp 99.0 F 09/08/20 12:42 Pulse 71 09/08/20 12:42 Resp 20 09/08/20 12:42 BP 169/69 H 09/08/20 12:44 Pulse Ox 97 09/08/20 12:42 Weight - Most Recent: 150 lb 1.6 oz I&O - Last 24 Hours: Intake & Output 09/07/20 09/08/20 09/08/20 22:59 06:59 14:59 Intake Total 1532 1197 Output Total 900 400 Balance 632 797 Lab Results Last 24 Hours: Laboratory Results - last 24 hr 09/07/20 09/07/20 09/08/20 Range/Units 16:36 21:49 06:15 WBC 10.5 H (5.0-10.0) 10^3/uL RBC 2.41 L (4.2-5.4) 10^6/uL Hgb 7.5 L (12.0-16.0) g/dL Hct 23.0 L (37.0-47.0) % MCV 95.4 (80-100) fL MCH 31.1 (27.0-34.0) pg MCHC 32.6 L (33.0-35.0) g/dL Plt Count 187 (150-450) 10^3/uL Neut % (Auto) 78.1 H (42.2-75.2) % Lymph % (Auto) 13.4 L (20.5-50.1) % Travis % (Auto) 8.4 H (2-8) % Eos % (Auto) 0.0 L (1.0-3.0) % Baso % (Auto) 0.1 (0.0-1.0) % Add Manual Diff Yes Neutrophils % (Manual) 76 H (42-75) % Band Neutrophils % 7 % Lymphocytes % (Manual) 12 L (20-50) % Monocytes % (Manual) 5 (2-8) % D-Dimer, Quantitative (0-400) ng/mL Sodium (136-145) mmol/L Potassium (3.5-5.1) mmol/L Chloride (98-107) mmol/L Carbon Dioxide (21-32) mmol/L Anion Gap (7-13) mEq/L BUN (7-18) mg/dL Creatinine (0.55-1.02) mg/dL Est Cr Clr Drug Dosing mL/min Estimated GFR (MDRD) Glucose (74-99) mg/dL POC Glucose 342 H 189 H (70-105) mg/dl Calcium (8.5-10.1) mg/dL Lactate Dehydrogenase (81-234) U/L 09/08/20 09/08/20 09/08/20 Range/Units 06:15 06:15 08:31 WBC (5.0-10.0) 10^3/uL RBC (4.2-5.4) 10^6/uL Hgb (12.0-16.0) g/dL Hct (37.0-47.0) % MCV (80-100) fL MCH (27.0-34.0) pg MCHC (33.0-35.0) g/dL Plt Count (150-450) 10^3/uL Neut % (Auto) (42.2-75.2) % Lymph % (Auto) (20.5-50.1) % Travis % (Auto) (2-8) % Eos % (Auto) (1.0-3.0) % Baso % (Auto) (0.0-1.0) % Add Manual Diff Neutrophils % (Manual) (42-75) % Band Neutrophils % % Lymphocytes % (Manual) (20-50) % Monocytes % (Manual) (2-8) % D-Dimer, Quantitative 751 H (0-400) ng/mL Sodium 142 (136-145) mmol/L Potassium 3.9 (3.5-5.1) mmol/L Chloride 114 H (98-107) mmol/L Carbon Dioxide 12 L (21-32) mmol/L Anion Gap 19.9 H (7-13) mEq/L BUN 40 H (7-18) mg/dL Creatinine 1.92 H (0.55-1.02) mg/dL Est Cr Clr Drug Dosing 23.84 mL/min Estimated GFR (MDRD) 26 Glucose 80 (74-99) mg/dL POC Glucose 81 (70-105) mg/dl Calcium 7.4 L (8.5-10.1) mg/dL Lactate Dehydrogenase 207 (81-234) U/L 09/08/20 Range/Units 12:18 WBC (5.0-10.0) 10^3/uL RBC (4.2-5.4) 10^6/uL Hgb (12.0-16.0) g/dL Hct (37.0-47.0) % MCV (80-100) fL MCH (27.0-34.0) pg MCHC (33.0-35.0) g/dL Plt Count (150-450) 10^3/uL Neut % (Auto) (42.2-75.2) % Lymph % (Auto) (20.5-50.1) % Travis % (Auto) (2-8) % Eos % (Auto) (1.0-3.0) % Baso % (Auto) (0.0-1.0) % Add Manual Diff Neutrophils % (Manual) (42-75) % Band Neutrophils % % Lymphocytes % (Manual) (20-50) % Monocytes % (Manual) (2-8) % D-Dimer, Quantitative (0-400) ng/mL Sodium (136-145) mmol/L Potassium (3.5-5.1) mmol/L Chloride (98-107) mmol/L Carbon Dioxide (21-32) mmol/L Anion Gap (7-13) mEq/L BUN (7-18) mg/dL Creatinine (0.55-1.02) mg/dL Est Cr Clr Drug Dosing mL/min Estimated GFR (MDRD) Glucose (74-99) mg/dL POC Glucose 100 (70-105) mg/dl Calcium (8.5-10.1) mg/dL Lactate Dehydrogenase (81-234) U/L Med Orders - Current: Current Medications Acetaminophen (Tylenol) 650 mg PO Q4H PRN PRN Reason: Pain (Mild 1-3)/fever Last Admin: 09/08/20 09:20 Dose: 650 mg Documented by: Amlodipine Besylate (Norvasc) 10 mg PO DAILY [facility] Last Admin: 09/08/20 12:44 Dose: 10 mg Documented by: Aspirin (Ecotrin) 325 mg PO DAILY [facility] Last Admin: 09/08/20 09:26 Dose: 325 mg Documented by: Atorvastatin Calcium (Lipitor) 10 mg PO DAILY [facility] Last Admin: 09/08/20 09:20 Dose: 10 mg Documented by: Calcium Carbonate (Calcium Carbonate/Vitamin D 1250 Mg-200 Unit) 1 tab PO DAILY [facility] Last Admin: 09/08/20 09:20 Dose: 1 tab Documented by: Dexamethasone (Dexamethasone) 6 mg IVPUSH DAILY [facility] Stop: 09/14/20 09:01 Last Admin: 09/08/20 09:22 Dose: 6 mg Documented by: Dextrose/Water (Dextrose 50% In Water) 50 ml IV ASDIRECTED PRN PRN Reason: Hypoglycemia Docusate Sodium (Colace) 100 mg PO BID PRN PRN Reason: Constipation Glucagon (Glucagen) 1 mg IM ASDIRECTED PRN PRN Reason: Hypoglycemia Heparin Sodium (Porcine) (Heparin Sodium) 5,000 units SUBCUT Q8HR [facility] Last Admin: 09/08/20 06:02 Dose: 5,000 units Documented by: Hydralazine HCl (Apresoline) 25 mg PO Q8H PRN PRN Reason: Hypertension Last Admin: 09/08/20 06:00 Dose: 25 mg Documented by: Sodium Chloride (Normal Saline) 1,000 mls @ 100 mls/hr IV ASDIRECTED [facility] Last Admin: 09/08/20 05:56 Dose: 100 mls/hr Documented by: Influenza Virus Vaccine (Pharmacy To Dose - Influenza Vaccine) 1 each IM DAILY [facility] Last Admin: 09/08/20 09:14 Dose: Not Given Documented by: Insulin Glargine (Lantus) 25 unit SUBCUT DAILY [facility] Last Admin: 09/08/20 09:28 Dose: 25 units Documented by: Insulin Human Lispro (Humalog) 0 unit SUBCUT WITHMEALSANDBED [facility]; Protocol Last Admin: 09/08/20 12:45 Dose: Not Given Documented by: Multivitamins (Thera) 1 each PO DAILY [facility] Last Admin: 09/08/20 09:20 Dose: 1 each Documented by: Oxycodone HCl (Oxycodone) 5 mg PO Q4H PRN PRN Reason: Pain (moderate 4-6) Zolpidem Tartrate (Ambien) 5 mg PO BEDTIME PRN PRN Reason: Sleep Last Admin: 09/07/20 21:52 Dose: 5 mg Documented by: Discontinued Medications Hydralazine HCl (Apresoline) 25 mg PO ONETIME ONE Stop: 09/07/20 23:43 Last Admin: 09/08/20 00:04 Dose: 25 mg Documented by: Insulin Human Lispro (Humalog) 0 unit SUBCUT WITHMEALSANDBED ONE; Protocol Stop: 09/07/20 15:40 Last Admin: 09/07/20 16:52 Dose: Not Given Documented by: - Exam General: Alert HEENT: Pupils Equal, Pupils Reactive, EOMI, Mucous Membr. Moist/[place] Neck: Supple Lungs: Clear to Auscultation, Normal Respiratory Effort Cardiovascular: Regular Rate, Regular Rhythm GI/Abdominal Exam: Normal Bowel Sounds, Soft, Non-Tender, No Organomegaly, No Distention, No Abnormal Bruit, No Mass, Pelvis Stable Back Exam: Normal Inspection, Full Range of Motion Extremities: Normal Inspection, Normal Range of Motion, Non-Tender, No Pedal Edema, Normal Capillary Refill Skin: Warm, Dry, Intact Neurological: No New Focal Deficit Psy/Mental Status: Alert, Normal Affect, Normal Mood Sepsis Event Note - Evaluation Sepsis Screening Result: No Definite Risk - Focused Exam Vital Signs: Vital Signs Temp Pulse Resp BP BP Pulse Ox 09/08/20 12:44 169/69 H 09/08/20 12:42 99.0 F 71 20 169/69 H 97 09/08/20 08:33 99.0 F 76 20 166/70 H 94 L 09/08/20 06:00 172/64 H 09/08/20 05:54 98.8 F 64 20 172/64 H 98 - Problem List Review Problem List Initiated/Reviewed/Updated: Yes - My Orders Last 24 Hours: My Active Orders 09/07/20 15:38 Dextrose 50% in Water 50 ml IV ASDIRECTED PRN Glucagon,Human Recombinant [GlucaGen] 1 mg IM ASDIRECTED PRN 09/07/20 18:00 Insulin Lispro [HumaLOG] 0 unit SUBCUT WITHMEALSANDBED 09/08/20 OCCULT BLOOD SCREEN [OP] Routine 09/08/20 11:15 amLODIPine [Norvasc] 10 mg PO DAILY - Plan Plan:: COVID-19 associated pneumonia - Not hyopoxic -Continue decadron 6 mg IV daily - Daily COVID labs GAYLE Creatinine of 2.64. No known recent baseline. - Continue IVF normal saline 100 cc/h - Strict I/O - Daily BMP. Renal status slowly improving. Acute on Chronic anemia Hb trended down from 9.7 to 7.5. -CBC daily - Obtain stool for occult blood Hypertension - Hold ARB for now - Start amlodipine 10mg daily - PRN hydralazine Type 2 DM - Resume home insulin regimen
[2020-09-08] MEDS: Zolpidem 5 MG Tab PO PRN (21:40)
[2020-09-09] MEDS: Sodium Chloride 0.9% 1,000 ML IV SCH ×2 (02:35→13:10)
[2020-09-09] MEDS: Heparin Sodium 5,000 Units/ML Vial SUBCUT SCH ×2 (06:14→15:37)
[2020-09-09 06:44] LABS: ANION GAP 17.9 mEq/L (7-13)
[2020-09-09] MEDS: Insulin Lispro 100 Units/ML 3 ML Vial SUBCUT SCH ×2 (08:39→12:31)
[2020-09-09] MEDS: Calcium Carbonate/Vitamin D3 1250 MG-200 Unit Tab PO SCH (08:40)
[2020-09-09] MEDS: Aspirin 325 MG Tab.EC PO SCH (08:40)
[2020-09-09] MEDS: Dexamethasone 4 MG/ML SDV IVPUSH SCH (08:40)
[2020-09-09] MEDS: atorvaSTATin 10 MG Tab PO SCH (08:40)
[2020-09-09] MEDS: amLODIPine 5 MG Tab PO SCH (08:40)
[2020-09-09] MEDS: Multivitamins,Therapeutic Tab PO SCH (08:41)
[2020-09-09] MEDS: Insulin Glarg,Human.Rec.Analog 100 Unit/ML SUBCUT SCH (08:49)
[2020-09-09] MEDS ORDERED: Magnesium Citrate Solution 296 ML Bottle PO ONE (10:28)
[2020-09-09 15:39] VITALS: BP 144/67; PULSE 80
--- NOTE | 2020-09-09 16:08 | PCM.DCSUM1 ---
Discharge Summary - Hospital Course Free Text/Narrative:: 65 year-old female with a medical history of type 2 diabetes, hypertension and right BKA who presented with complains of generalized weakness, cough, body pains. Patient tested positive for COVID-19 on 08/28/2020 and has been on isolation. She had very poor appetite with poor oral intake. Labs was notable for hb of 9.7 which decreased to 7.4 during admission. Stool was negative for occult blood. Anemia likely due to kidney disease. Initial creatinine of 2.64 and improved with IVF. CT scan showed multiple small peripheral ground glass opacities consistent with COVID-19 pneumonia. Respiratory status improved as well. Patient received Dexamethasone. She did not receive Remdesevir due to renal status. Problems addressed during this hospitalization COVID-19 associated pneumonia GAYLE Acute on Chronic anemia Hypertension Type 2 DM Diagnosis: Stroke: No - Discharge Data Discharge Date: 09/09/20 Discharge Disposition: Home, Self-Care 01 Condition: Good - Referral to Home Health Primary Care Physician: PCP None - Discharge Plan *PRESCRIPTION DRUG MONITORING PROGRAM REVIEWED*: Not Applicable *COPY OF PRESCRIPTION DRUG MONITORING REPORT IN PATIENT DANA: Not Applicable Prescriptions/Med Rec: hydrALAZINE [Apresoline] 25 mg PO TID #90 tablet dexAMETHasone [Dexamethasone] 6 mg PO DAILY 5 Days tab Ferrous Sulfate 325 mg PO BID 30 Days tablet Ascorbic Acid [Vitamin C] 500 mg PO BID 30 Days tab.chew Home Medications: Home Meds Insulin Detemir [Levemir Flexpen] 25 unit SQ DAILY 02/24/14 [History] Acetaminophen [Tylenol] 650 mg PO Q4HR PRN 02/02/15 [History] Multivitamin [Multivitamins] 1 tab PO DAILY 02/02/15 [History] Calcium Carbonate/Vitamin D3 [Os-Jermain 500+D] 1 tab PO DAILY 02/14/15 [History] atorvaSTATin [Lipitor] 10 mg PO DAILY 07/26/18 [History] Aspirin [Aspirin EC] 325 mg PO DAILY 09/05/20 [History] Ascorbic Acid [Vitamin C] 500 mg PO BID 30 Days tab.chew 09/09/20 [Rx] Ferrous Sulfate 325 mg PO BID 30 Days tablet 09/09/20 [Rx] dexAMETHasone [Dexamethasone] 6 mg PO DAILY 5 Days tab 09/09/20 [Rx] hydrALAZINE [Apresoline] 25 mg PO TID #90 tablet 09/09/20 [Rx] Forms: ED Department Discharge Referrals: PCP,None [Primary Care Provider] - - Discharge Summary/Plan Comment DC Time >30 min.: Yes - General Info Date of Service: 09/09/20 Admission Dx/Problem (Free Text: Admission Diagnosis/Problem Admission Diagnosis/Problem Acute kidney injury Subjective Update: Patient seen and examined today. Afebrile overnight. Cough is improved. Hemoglobin down to 7.4 but stable from yesterday. No bleeding. - Review of Systems General: Reports: No Symptoms HEENT: Reports: No Symptoms Pulmonary: Reports: Cough. Denies: Shortness of Breath Cardiovascular: Reports: No Symptoms Gastrointestinal: Reports: No Symptoms Musculoskeletal: Reports: No Symptoms Skin: Reports: No Symptoms Neurological: Reports: No Symptoms Psychiatric: Reports: No Symptoms - Patient Data Vitals - Most Recent: Last Vital Signs Temp 98.5 F 09/09/20 15:00 Pulse 80 09/09/20 15:00 Resp 18 09/09/20 15:00 BP 144/67 H 09/09/20 15:00 Pulse Ox 96 09/09/20 15:00 Weight - Most Recent: 150 lb 1.6 oz I&O - Last 24 hours: Intake & Output 09/09/20 09/09/20 09/09/20 06:59 14:59 22:59 Intake Total 600 Output Total 800 Balance -200 Lab Results - Last 24 hrs: Laboratory Results - last 24 hr 09/08/20 09/08/20 09/09/20 Range/Units 17:08 21:38 06:05 WBC 7.4 (5.0-10.0) 10^3/uL RBC 2.35 L (4.2-5.4) 10^6/uL Hgb 7.4 L (12.0-16.0) g/dL Hct 22.3 L (37.0-47.0) % MCV 94.9 (80-100) fL MCH 31.5 (27.0-34.0) pg MCHC 33.2 (33.0-35.0) g/dL Plt Count 194 (150-450) 10^3/uL D-Dimer, Quantitative (0-400) ng/mL Sodium (136-145) mmol/L Potassium (3.5-5.1) mmol/L Chloride (98-107) mmol/L Carbon Dioxide (21-32) mmol/L Anion Gap (7-13) mEq/L BUN (7-18) mg/dL Creatinine (0.55-1.02) mg/dL Est Cr Clr Drug Dosing mL/min Estimated GFR (MDRD) Glucose (74-99) mg/dL POC Glucose 170 H 124 H (70-105) mg/dl Calcium (8.5-10.1) mg/dL 09/09/20 09/09/20 09/09/20 Range/Units 06:05 06:05 08:39 WBC (5.0-10.0) 10^3/uL RBC (4.2-5.4) 10^6/uL Hgb (12.0-16.0) g/dL Hct (37.0-47.0) % MCV (80-100) fL MCH (27.0-34.0) pg MCHC (33.0-35.0) g/dL Plt Count (150-450) 10^3/uL D-Dimer, Quantitative 610 H (0-400) ng/mL Sodium 143 (136-145) mmol/L Potassium 3.9 (3.5-5.1) mmol/L Chloride 115 H (98-107) mmol/L Carbon Dioxide 14 L (21-32) mmol/L Anion Gap 17.9 H (7-13) mEq/L BUN 37 H (7-18) mg/dL Creatinine 1.87 H (0.55-1.02) mg/dL Est Cr Clr Drug Dosing 24.48 mL/min Estimated GFR (MDRD) 27 Glucose 74 (74-99) mg/dL POC Glucose 76 (70-105) mg/dl Calcium 7.1 L (8.5-10.1) mg/dL 09/09/20 Range/Units 12:08 WBC (5.0-10.0) 10^3/uL RBC (4.2-5.4) 10^6/uL Hgb (12.0-16.0) g/dL Hct (37.0-47.0) % MCV (80-100) fL MCH (27.0-34.0) pg MCHC (33.0-35.0) g/dL Plt Count (150-450) 10^3/uL D-Dimer, Quantitative (0-400) ng/mL Sodium (136-145) mmol/L Potassium (3.5-5.1) mmol/L Chloride (98-107) mmol/L Carbon Dioxide (21-32) mmol/L Anion Gap (7-13) mEq/L BUN (7-18) mg/dL Creatinine (0.55-1.02) mg/dL Est Cr Clr Drug Dosing mL/min Estimated GFR (MDRD) Glucose (74-99) mg/dL POC Glucose 132 H (70-105) mg/dl Calcium (8.5-10.1) mg/dL [facility] Results - Last 24 hrs: Microbiology 09/08/20 15:22 Stool Occult Blood (ADELINA) - Final Stool / Feces NEGATIVE OCCULT BLOOD REFERENCE RANGE: NEGATIVE Med Orders - Current: Current Medications Acetaminophen (Tylenol) 650 mg PO Q4H PRN PRN Reason: Pain (Mild 1-3)/fever Last Admin: 09/08/20 09:20 Dose: 650 mg Documented by: Amlodipine Besylate (Norvasc) 10 mg PO DAILY [facility] Last Admin: 09/09/20 08:40 Dose: 10 mg Documented by: Aspirin (Ecotrin) 325 mg PO DAILY [facility] Last Admin: 09/09/20 08:40 Dose: 325 mg Documented by: Atorvastatin Calcium (Lipitor) 10 mg PO DAILY [facility] Last Admin: 09/09/20 08:40 Dose: 10 mg Documented by: Calcium Carbonate (Calcium Carbonate/Vitamin D 1250 Mg-200 Unit) 1 tab PO DAILY [facility] Last Admin: 09/09/20 08:40 Dose: 1 tab Documented by: Dexamethasone (Dexamethasone) 6 mg IVPUSH DAILY [facility] Stop: 09/14/20 09:01 Last Admin: 09/09/20 08:40 Dose: 6 mg Documented by: Dextrose/Water (Dextrose 50% In Water) 50 ml IV ASDIRECTED PRN PRN Reason: Hypoglycemia Docusate Sodium (Colace) 100 mg PO BID PRN PRN Reason: Constipation Last Admin: 09/09/20 08:50 Dose: 100 mg Documented by: Glucagon (Glucagen) 1 mg IM ASDIRECTED PRN PRN Reason: Hypoglycemia Heparin Sodium (Porcine) (Heparin Sodium) 5,000 units SUBCUT Q8HR [facility] Last Admin: 09/09/20 15:37 Dose: 5,000 units Documented by: Hydralazine HCl (Apresoline) 25 mg PO Q8H PRN PRN Reason: Hypertension Last Admin: 09/08/20 06:00 Dose: 25 mg Documented by: Sodium Chloride (Normal Saline) 1,000 mls @ 100 mls/hr IV ASDIRECTED [facility] Last Admin: 09/09/20 13:10 Dose: 100 mls/hr Documented by: Influenza Virus Vaccine (Pharmacy To Dose - Influenza Vaccine) 1 each IM DAILY [facility] Last Admin: 09/09/20 10:25 Dose: Not Given Documented by: Influenza Virus Vaccine (Fluad Quad [id number] Syringe) 60 mcg IM .ONCE ONE Stop: 09/09/20 16:16 Insulin Glargine (Lantus) 25 unit SUBCUT DAILY [facility] Last Admin: 09/09/20 08:49 Dose: 25 units Documented by: Insulin Human Lispro (Humalog) 0 unit SUBCUT WITHMEALSANDBED [facility]; Protocol Last Admin: 09/09/20 12:31 Dose: Not Given Documented by: Multivitamins (Thera) 1 each PO DAILY [facility] Last Admin: 09/09/20 08:41 Dose: 1 each Documented by: Oxycodone HCl (Oxycodone) 5 mg PO Q4H PRN PRN Reason: Pain (moderate 4-6) Zolpidem Tartrate (Ambien) 5 mg PO BEDTIME PRN PRN Reason: Sleep Last Admin: 09/08/20 21:40 Dose: 5 mg Documented by: Discontinued Medications Hydralazine HCl (Apresoline) 25 mg PO ONETIME ONE Stop: 09/07/20 23:43 Last Admin: 09/08/20 00:04 Dose: 25 mg Documented by: Insulin Human Lispro (Humalog) 0 unit SUBCUT WITHMEALSANDBED ONE; Protocol Stop: 09/07/20 15:40 Last Admin: 09/07/20 16:52 Dose: Not Given Documented by: Magnesium Citrate (Citrate Of Magnesia) 296 ml PO ONETIME ONE Stop: 09/09/20 10:29 Last Admin: 09/09/20 12:05 Dose: 296 ml Documented by: - Exam General: Reports: Alert, Oriented HEENT: Reports: Pupils Equal, Pupils Reactive, EOMI, Mucous Membr. Moist/[place] Neck: Reports: Supple Lungs: Reports: Clear to Auscultation, Normal Respiratory Effort Cardiovascular: Reports: Regular Rate, Regular Rhythm GI/Abdominal Exam: Normal Bowel Sounds, Soft, Non-Tender, No Organomegaly, No Distention, No Abnormal Bruit, No Mass, Pelvis Stable Back Exam: Reports: Normal Inspection, Full Range of Motion Extremities: Other (right BKA) Skin: Reports: Warm, Dry, Intact Neurological: Reports: No New Focal Deficit Psy/Mental Status: Reports: Alert, Normal Affect, Normal Mood
== END 2020-09-09 17:45 | disposition home or self-care (01) | DRG 177 ==
LOC: DL.ED 12:25 → DL.MS 14:35
PROVIDERS: ADMIT Internal Medicine; ATTEND Internal Medicine
PROC: 8E0ZXY6 Isolation (ICD-10-PCS; principal; 2020-09-05)
DX: U07.1 COVID-19 (principal); J12.89 Other viral pneumonia; N17.9 Acute kidney failure, unspecified; H54.7 Unspecified visual loss; I25.10 Atherosclerotic heart disease of native coronary artery without angina pectoris; I10 Essential (primary) hypertension; M19.90 Unspecified osteoarthritis, unspecified site; E11.9 Type 2 diabetes mellitus without complications; D63.1 Anemia in chronic kidney disease; Z89.511 Acquired absence of right leg below knee; Z79.4 Long term (current) use of insulin; Z79.82 Long term (current) use of aspirin; Z79.899 Other long term (current) drug therapy; Z98.49 Cataract extraction status, unspecified eye; Z90.49 Acquired absence of other specified parts of digestive tract
CPT/HCPCS: 36415; 71250; 80048; 80053; 82272; 82962; 83615; 83880; 84145; 85025; 85027; 85379; 86140; 90653; 93005; 99285-25; A9270-GY; G0008; J1100; J1644; J1815-GY; J7030

== ENCOUNTER 2020-09-21 09:08 | Day surgery (SDC) | payer MEDICAID, MEDICARE, OTHER ==
[~2020-09-21 09:08] MED LIST: Lactated Ringers 1,000 ML IV SCH
[2020-09-21] MEDS ORDERED: Ondansetron 4 MG/2 ML SDV IV ONE (09:09)
[2020-09-21] MEDS ORDERED: fentaNYL 100 MCG/2 ML SDV IV ONE (09:09)
[2020-09-21] MEDS ORDERED: Ketorolac 30 MG/ML SDV IVPUSH ONE (09:09)
[2020-09-21] MEDS ORDERED: Propofol 200 MG/20 ML SDV IV ONE (09:09)
[2020-09-21] MEDS ORDERED: Midazolam 1 MG/ML 2 ML SDV IV ONE (09:09)
[2020-09-21] MEDS ORDERED: Lidocaine 1% with EPINEPHrine 1:100,000 20 ML MDV ONE (09:48)
[2020-09-21] MEDS ORDERED: Lidocaine 1% with EPINEPHrine 1:100,000 30 ML MDV INJECT ONE (10:17)
--- NOTE | 2020-09-21 12:43 | OR ---
DATE: 09/21/2020 PREOPERATIVE DIAGNOSIS: Right shoulder abscess. POSTOPERATIVE DIAGNOSIS: Right shoulder abscess. PROCEDURE: Incision and drainage with packing of right shoulder abscess. ANESTHESIA: Local plus MAC. SPECIMEN: Cultures. INDICATION FOR PROCEDURE: This 65-year-old female has been on antibiotics over a week for suspected infection of the right shoulder. This is a posterior deltoid latissimus dorsi groove abscess. This is a subcutaneous one. She has 2 or 3 spontaneous drainage openings where the purulent pus is draining from. She really needs to have this opened up and irrigated. PROCEDURE IN DETAIL: After adequate preparation, 1% Xylocaine was used to infiltrate the skin over this abscess area. An incision was then made and did have a moderate amount of maybe 20 mL of pus evacuated. This was cultured for both aerobic and anaerobic. This was then irrigated with saline and cautery was used for the skin edges. Hemostasis was adequately controlled and the wound was packed with a 4 x 4 gauze pad, which will be left in place for 2 days and then her clinic will change dressings on this daily for the next week. This should close within [address] [facility] /[id number]
[2020-09-21 12:55] VITALS: BP 156/56; PULSE 77
== END 2020-09-21 12:23 | disposition home or self-care (01) ==
LOC: DL.SDS 09:08
PROVIDERS: ATTEND Surgery
DX: L02.413 Cutaneous abscess of right upper limb (principal); I12.9 Hypertensive chronic kidney disease with stage 1 through stage 4 chronic kidney disease, or unspecified chronic kidney disease; E11.22 Type 2 diabetes mellitus with diabetic chronic kidney disease; N18.4 Chronic kidney disease, stage 4 (severe); E78.5 Hyperlipidemia, unspecified; E11.621 Type 2 diabetes mellitus with foot ulcer; L97.519 Non-pressure chronic ulcer of other part of right foot with unspecified severity; E11.51 Type 2 diabetes mellitus with diabetic peripheral angiopathy without gangrene; Z87.891 Personal history of nicotine dependence; Z89.511 Acquired absence of right leg below knee; Z01.812 Encounter for preprocedural laboratory examination; Z20.828 Contact with and (suspected) exposure to other viral communicable diseases; Z79.4 Long term (current) use of insulin
CPT/HCPCS: 00400; 10061; 87070; 87075; 87077; 87186; 87635; 93005; J1885; J2250; J2405; J2704; J3010; J7120; U0002

== ENCOUNTER 2021-03-09 12:24 | Emergency (ER) | payer MEDICARE, MEDICAID ==
[2021-03-09 13:21] VITALS: BP 177/78; PULSE 98
[2021-03-09 13:33] LABS: CORONAVIRUS COVID-19 NAA NEGATIVE (NEGATIVE)
--- NOTE | 2021-03-09 13:48 | EDM.PDOC ---
Scribed by Nelly Sood 03/09/21 1306 for Michael Wolfe MD ED HPI GENERAL MEDICAL PROBLEM - General Chief Complaint: ENT Problem Stated Complaint: [id number] SORE THROAT SLIGHT COUGH Time Seen by Provider: 03/09/21 12:45 Source of Information: Reports: Patient, RN, RN Notes Reviewed History Limitations: Reports: No Limitations - History of Present Illness INITIAL COMMENTS - FREE TEXT/NARRATIVE: Patient presents to ED by POV complaining of sore throat. She is worried because she has been exposed to COVID. She has no chest pain or shortness of breath. Denies cough or wheezing. Onset: Gradual Duration: Constant Location: Reports: Other (throat) Quality: Reports: Ache Severity: Mild Improves with: Reports: None Worsens with: Reports: None Associated Symptoms: Reports: No Other Symptoms Throat Pain Score (Numeric/FACES): 4 - Related Data Allergies Allergy/AdvReac Type Severity Reaction Status Date / Time No Known Allergies Allergy Verified 03/09/21 12:52 Home Meds: Home Meds Insulin Detemir [Levemir Flexpen] 25 unit SQ DAILY 02/24/14 [History] Acetaminophen [Tylenol] 650 mg PO Q4HR PRN 02/02/15 [History] Multivitamin [Multivitamins] 1 tab PO DAILY 02/02/15 [History] Calcium Carbonate/Vitamin D3 [Os-Jermain 500+D] 1 tab PO DAILY 02/14/15 [History] atorvaSTATin [Lipitor] 10 mg PO DAILY 07/26/18 [History] Aspirin [Aspirin EC] 325 mg PO DAILY 09/05/20 [History] Ascorbic Acid [Vitamin C] 500 mg PO BID 30 Days tab.chew 09/09/20 [Rx] Ferrous Sulfate 325 mg PO BID 30 Days tablet 09/09/20 [Rx] dexAMETHasone [Dexamethasone] 6 mg PO DAILY 5 Days tab 09/09/20 [Rx] hydrALAZINE [Apresoline] 25 mg PO TID #90 tablet 09/09/20 [Rx] Past Medical History HEENT History: Reports: Cataract, Impaired Vision Other HEENT History: wears glasses Cardiovascular History: Reports: CAD, Hypertension Respiratory History: Reports: Bronchitis, Recurrent Gastrointestinal History: Reports: None Genitourinary History: Reports: Renal Disease [employer]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 Musculoskeletal History: Reports: Arthritis Other Musculoskeletal History: right below the knee amputation Neurological History: Reports: None Psychiatric History: Reports: None Endocrine/Metabolic History: Reports: Diabetes, Type II Hematologic History: Reports: None Immunologic History: Reports: None Oncologic (Cancer) History: Reports: None Dermatologic History: Reports: None - Infectious Disease History Infectious Disease History: Reports: None - Past Surgical History Head Surgeries/Procedures: Reports: None HEENT Surgical History: Reports: Cataract Surgery Cardiovascular Surgical History: Reports: None Respiratory Surgical History: Reports: None GI Surgical History: Reports: Appendectomy, Cholecystectomy Female Surgical History: Reports: None Endocrine Surgical History: Reports: None Neurological Surgical History: Reports: None Musculoskeletal Surgical History: Reports: Amputation, Other (See Below) Other Musculoskeletal Surgeries/Procedures:: right side hip fx with pins Oncologic Surgical History: Reports: None Dermatological Surgical History: Reports: None Social & Family History - Family History Family Medical History: No Pertinent Family History - Caffeine Use Caffeine Use: Reports: Coffee, Tea - Living Situation & Occupation Living situation: Reports: with Family Occupation: Disabled ED ROS ENT - Review of Systems Review Of Systems: Comprehensive ROS is negative, except as noted in HPI. ED EXAM, ENT - Physical Exam Exam: See Below Exam Limited By: No Limitations General Appearance: Alert, WD/WN, No Apparent Distress Eye Exam: Bilateral Eye: EOMI, Normal Inspection, PERRL Ears: Normal External Exam, Normal Canal, Hearing Grossly Normal, Normal TMs Nose: Normal Inspection, Normal Mucousa, No Blood Mouth/Throat: Normal Gums, Normal Lips, Normal Teeth, Other (Postnasal drip). No: Tonsillar Swelling Head: Atraumatic, Normocephalic Neck: Normal Inspection, Supple, Non-Tender, Full Range of Motion Respiratory/Chest: No Respiratory Distress, Lungs Clear, Normal Breath Sounds, No Accessory Muscle Use, Chest Non-Tender Cardiovascular: Normal Peripheral Pulses, Regular Rate, Rhythm, No Edema, No Gallop, No JVD, No Murmur, No Rub GI/Abdominal: Normal Bowel Sounds, Soft, Non-Tender, No Organomegaly, No Distention, No Abnormal Bruit, No Mass (Female) Exam: Deferred Rectal (Female) Exam: Deferred Back: Normal Inspection, Full Range of Motion Extremities: Normal Inspection, Normal Range of Motion, Non-Tender, No Pedal Edema, Normal Capillary Refill Neurological: Alert, Oriented, CN II-XII Intact, Normal Cognition, Normal Gait, Normal Reflexes, No Motor/Sensory Deficits Psychiatric: Normal Affect, Normal Mood Skin: Warm, Dry, Intact, Normal Color, No Rash Course - Vital Signs Last Recorded V/S: Last Vital Signs Temp 97.6 F 03/09/21 13:20 Pulse 98 03/09/21 13:20 Resp 20 03/09/21 13:20 BP 177/78 H 03/09/21 13:20 Pulse Ox 94 L 03/09/21 13:20 - Orders/Labs/Meds Orders: Active Orders 24 hr Category Date Time Status CULTURE STREP A CONFIRMATION [RM] Stat Lab 03/09/21 12:39 Results STREP SCRN A RAPID W CULT CONF [RM] Stat Lab 03/09/21 12:39 Results Labs: Laboratory Tests 03/09/21 Range/Units 12:39 Influenza Type A RNA Negative (NEGATIVE) Influenza Type B RNA Negative (NEGATIVE) SARS-CoV-2 RNA (PHAN) Negative (NEGATIVE) Rapid strep: Negative. Departure - Departure Time of Disposition: 13:47 Disposition: Home, Self-Care 01 Condition: Good Clinical Impression: Postnasal drip, Sore throat - Discharge Information *PRESCRIPTION DRUG MONITORING PROGRAM REVIEWED*: Not Applicable *COPY OF PRESCRIPTION DRUG MONITORING REPORT IN PATIENT DANA: Not Applicable Instructions: Sore Throat, [id number], Postnasal Drip Forms: ED Department Discharge Additional Instructions: Rx: Zyrtec 10mg Saltwater gargles. Sepsis Event Note (ED) - Focused Exam Vital Signs: Vital Signs Temp Pulse Resp BP Pulse Ox 03/09/21 13:20 97.6 F 98 20 177/78 H 94 L - My Orders Last 24 Hours: My Active Orders 03/09/21 12:39 CULTURE STREP A CONFIRMATION [RM] Stat STREP SCRN A RAPID W CULT CONF [RM] Stat - Assessment/Plan Last 24 Hours: My Active Orders 03/09/21 12:39 CULTURE STREP A CONFIRMATION [RM] Stat STREP SCRN A RAPID W CULT CONF [RM] Stat I have read and agree with the documentation that has been completed regarding this visit. By signing this record, I attest that the documentation was completed in my physical presence and is an accurate record of the encounter.
== END 2021-03-09 13:54 | disposition home or self-care (01) ==
LOC: DL.ED 12:24
DX: J02.9 Acute pharyngitis, unspecified (principal); R09.82 Postnasal drip; I25.10 Atherosclerotic heart disease of native coronary artery without angina pectoris; Z20.822 Contact with and (suspected) exposure to COVID-19; I10 Essential (primary) hypertension; M19.90 Unspecified osteoarthritis, unspecified site; E11.9 Type 2 diabetes mellitus without complications; Z79.4 Long term (current) use of insulin; Z79.899 Other long term (current) drug therapy; Z79.82 Long term (current) use of aspirin
CPT/HCPCS: 0240U; 87081; 87430; 99283

== ENCOUNTER 2021-06-19 19:37 | Inpatient (IN) | payer MEDICARE, MEDICAID ==
--- NOTE | 2021-06-19 21:10 | EDM.PDOC ---
ED HPI GENERAL MEDICAL PROBLEM - General Stated Complaint: BLADDER INFECTION PER PT Time Seen by Provider: 06/19/21 21:00 Source of Information: Reports: Patient History Limitations: Reports: No Limitations - History of Present Illness INITIAL COMMENTS - FREE TEXT/NARRATIVE: This 66 yo female patient reports to the ED with a 1 week history of dysuria and frequent urination. The patient reports she started to have a loss of appetite yesterday with some nausea. The patient reports she has not attempted to have an appointment with her primary care facility. Duration: Week(s):, Constant, Getting Worse Location: Reports: Other Quality: Reports: Burning Severity: Moderate Improves with: Reports: None Worsens with: Reports: None Context: Reports: Other Associated Symptoms: Reports: Loss of Appetite, Nausea/Vomiting Perineal Area Pain Score (Numeric/FACES): 2 - Related Data Allergies Allergy/AdvReac Type Severity Reaction Status Date / Time No Known Allergies Allergy Verified 03/09/21 12:52 Home Meds: Home Meds Insulin Detemir [Levemir Flexpen] 25 unit SQ BEDTIME 02/24/14 [History] Multivitamin [Multivitamins] 1 tab PO DAILY 02/02/15 [History] Calcium Carbonate/Vitamin D3 [Os-Jermain 500+D] 1 tab PO DAILY 02/14/15 [History] atorvaSTATin [Lipitor] 10 mg PO DAILY 07/26/18 [History] Aspirin [Aspirin EC] 325 mg PO DAILY 09/05/20 [History] Ferrous Sulfate 325 mg PO BID 30 Days tablet 09/09/20 [Rx] hydrALAZINE [Apresoline] 25 mg PO TID #90 tablet 09/09/20 [Rx] Losartan [Cozaar] 25 mg PO DAILY 06/19/21 [History] Past Medical History HEENT History: Reports: Cataract, Impaired Vision Other HEENT History: wears glasses Cardiovascular History: Reports: CAD, Hypertension Respiratory History: Reports: Bronchitis, Recurrent Gastrointestinal History: Reports: None Genitourinary History: Reports: Renal Disease 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 Musculoskeletal History: Reports: Arthritis Other Musculoskeletal History: right below the knee amputation Neurological History: Reports: None Psychiatric History: Reports: None Endocrine/Metabolic History: Reports: Diabetes, Type II Hematologic History: Reports: None Immunologic History: Reports: None Oncologic (Cancer) History: Reports: None Dermatologic History: Reports: None - Infectious Disease History Infectious Disease History: Reports: None - Past Surgical History Head Surgeries/Procedures: Reports: None HEENT Surgical History: Reports: Cataract Surgery Cardiovascular Surgical History: Reports: None Respiratory Surgical History: Reports: None GI Surgical History: Reports: Appendectomy, Cholecystectomy Female Surgical History: Reports: None Endocrine Surgical History: Reports: None Neurological Surgical History: Reports: None Musculoskeletal Surgical History: Reports: Amputation, Other (See Below) Other Musculoskeletal Surgeries/Procedures:: right side hip fx with pins Oncologic Surgical History: Reports: None Dermatological Surgical History: Reports: None Social & Family History - Family History Family Medical History: No Pertinent Family History - Caffeine Use Caffeine Use: Reports: Coffee - Living Situation & Occupation Living situation: Reports: with Family Occupation: Disabled ED ROS GENERAL - Review of Systems Review Of Systems: Comprehensive ROS is negative, except as noted in HPI. ED EXAM, RENAL/ - Physical Exam Exam: See Below Exam Limited By: No Limitations General Appearance: Alert, WD/WN, Moderate Distress Eye Exam: Bilateral Eye: EOMI, Normal Inspection, PERRL Ears: Normal External Exam, Normal Canal, Hearing Grossly Normal, Normal TMs Nose: Normal Inspection, Normal Mucosa, No Blood Throat/Mouth: Normal Inspection, Normal Lips, Normal Teeth, Normal Gums, Normal Oropharynx, Normal Voice, No Airway Compromise Head: Atraumatic, Normocephalic Neck: Normal Inspection, Supple, Non-Tender, Full Range of Motion Respiratory/Chest: No Respiratory Distress, Lungs Clear, Decreased Breath Sounds Cardiovascular: Normal Peripheral Pulses, Regular Rate, Rhythm, No Edema, No Gallop, No JVD, No Murmur, No Rub GI/Abdominal: Normal Bowel Sounds, Soft, Non-Tender, No Organomegaly, No Distention, No Abnormal Bruit, No Mass (Female) Exam: Deferred Rectal (Female) Exam: Deferred Back Exam: Normal Inspection, Full Range of Motion, NT Extremities: Normal Inspection, Normal Range of Motion, Non-Tender, No Pedal Edema, Normal Capillary Refill, Other (Right prostetic) Neurological: Alert, Oriented, CN II-XII Intact, Normal Cognition, Normal Gait, Normal Reflexes, No Motor/Sensory Deficits Psychiatric: Normal Affect, Normal Mood Skin Exam: Warm, Dry, Intact, Normal Color, No Rash Lymphatic: No Adenopathy Course - Vital Signs Last Recorded V/S: Last Vital Signs Temp 97.9 F 06/19/21 21:24 Pulse 101 H 06/19/21 21:24 Resp 20 06/19/21 21:24 BP 188/85 H 06/19/21 21:24 Pulse Ox 100 06/19/21 21:24 - Orders/Labs/Meds Orders: Active Orders 24 hr Category Date Time Status Admission Diagnosis [ADT] Urgent ADT 06/20/21 00:04 Ordered Admission Status [Patient Status] [ADT] Urgent ADT 06/20/21 00:04 Ordered CULTURE BLOOD [BC] Stat Lab 06/19/21 21:19 Received CULTURE URINE [RM] Urgent Lab 06/19/21 20:58 Received Sodium Chloride 0.9% [Normal Saline] 1,000 ml Med 06/19/21 21:54 Active IV .BOLUS Sodium Chloride 0.9% [Normal Saline] 1,000 ml Med 06/20/21 00:00 Ordered IV .BOLUS Medication Orders Sodium Chloride (Normal Saline) 1,000 mls @ 250 mls/hr IV .BOLUS ONE Stop: 06/20/21 01:53 Last Admin: 06/19/21 22:22 Dose: 250 mls/hr Documented by: CHELSEA Sodium Chloride (Normal Saline) 1,000 mls @ 500 mls/hr IV .BOLUS ONE Stop: 06/20/21 01:59 Labs: Laboratory Tests 06/19/21 06/19/21 06/19/21 Range/Units 20:58 21:19 21:19 WBC 8.3 (5.0-10.0) 10^3/uL RBC 2.38 L (4.2-5.4) 10^6/uL Hgb 7.8 L (12.0-16.0) g/dL Hct 25.4 L (37.0-47.0) % MCV 106.7 H D (80-100) fL MCH 32.8 (27.0-34.0) pg MCHC 30.7 L (33.0-35.0) g/dL Plt Count 158 (150-450) 10^3/uL Neut % (Auto) 73.1 (42.2-75.2) % Lymph % (Auto) 20.6 (20.5-50.1) % Knott % (Auto) 5.1 (2-8) % Eos % (Auto) 1.0 (1.0-3.0) % Baso % (Auto) 0.2 (0.0-1.0) % Sodium 147 H (136-145) mmol/L Potassium 5.9 H D (3.5-5.1) mmol/L Chloride 116 H (98-107) mmol/L Carbon Dioxide 10 L (21-32) mmol/L Anion Gap 26.9 H (7-13) mEq/L BUN 64 H D (7-18) mg/dL Creatinine 4.80 H D (0.55-1.02) mg/dL Est Cr Clr Drug Dosing 9.41 mL/min Estimated GFR (MDRD) 9 BUN/Creatinine Ratio 13.3 (No establ ref range) Glucose 81 (70-99) mg/dL Calcium 8.1 L (8.5-10.1) mg/dL Total Bilirubin 0.3 (0.2-1.0) mg/dL AST 18 (15-37) U/L ALT 18 (14-59) U/L Alkaline Phosphatase 69 (46-116) U/L Total Protein 7.0 (6.4-8.2) g/dL Albumin 3.0 L (3.4-5.0) g/dL Globulin 4.0 Albumin/Globulin Ratio 0.75 Urine Color Yellow (YELLOW) Urine Appearance Cloudy (CLEAR) Urine pH 7.5 (5.0-9.0) Ur Specific [place] 1.025 (1.005-1.030) Urine Protein >=300 H (NEGATIVE) Urine Glucose (UA) Negative (NEGATIVE) Urine Ketones Trace H (NEGATIVE) Urine Occult Blood Trace-intact H (NEGATIVE) Urine Nitrite Negative (NEGATIVE) Urine Bilirubin Negative (NEGATIVE) Urine Urobilinogen 0.2 (0.2-1.0) mg/dL Ur Leukocyte Esterase Small H (NEGATIVE) Urine RBC 10-20 H (0-5) /HPF Urine WBC >100 H (0-5/HPF) /HPF Ur Epithelial Cells Few (NOT SEEN) /HPF Amorphous Sediment Few (NOT SEEN) /HPF Urine Bacteria Many H (0-FEW/HPF) /HPF Urine Mucus Moderate H (NOT SEEN) /LPF Meds: Medications Generic Name Dose Route Start Last Admin Trade Name Freq PRN Reason Stop Dose Admin Sodium Chloride 1,000 mls @ 250 mls/hr 06/19/21 21:54 06/19/21 22:22 Normal Saline IV 06/20/21 01:53 250 mls/hr .BOLUS ONE Administration Sodium Chloride 1,000 mls @ 500 mls/hr 06/20/21 00:00 Normal Saline IV 06/20/21 01:59 .BOLUS ONE Discontinued Medications Generic Name Dose Route Start Last Admin Trade Name Camila PRN Reason Stop Dose Admin Ceftriaxone Sodium 1 gm/ 50 mls @ 100 mls/hr 06/19/21 23:11 06/19/21 23:52 Sodium Chloride IV 06/19/21 23:40 100 mls/hr ONETIME ONE Administration - Re-Assessments/Exams Free Text/Narrative Re-Assessment/Exam: 06/19/21 22:02 A call was placed to [facility] for possible transfer due to Acute Renal Failure. [facility] currently does not have any general medicine beds, but may have additional beds available at [address] [facility] will call back to the ED after 2300. 06/20/21 00:06 Discussed the patient's history, examination and treatments with Dr. Roca (Hospi talist with [facility]). Dr. Roca has accepted the patient for admission, but [facility] currently does not have any beds available. Dr. Roca requested that we continue to hydrate the patient until a bed is available in their facility. A call was placed to Dr. Baptiste regarding the above information. Dr. Baptiste accepted the patient at [facility] pending bed availability. Departure - Departure Time of Disposition: 00:09 Disposition: Admitted As Inpatient 65 Condition: Fair Clinical Impression: UTI (urinary tract infection) Qualifiers: Urinary tract infection type: acute pyelonephritis Qualified Code(s): N10 - Acute pyelonephritis Acute renal failure Qualifiers: Acute renal failure type: unspecified Qualified Code(s): N17.9 - Acute kidney failure, unspecified - Discharge Information *PRESCRIPTION DRUG MONITORING PROGRAM REVIEWED*: Not Applicable *COPY OF PRESCRIPTION DRUG MONITORING REPORT IN PATIENT DANA: Not Applicable Care Plan Goals: Discussed the patient's history, examination, treatment and recommendations from Dr. Roca (Hospitalist with [facility]) with Dr. Baptiste. Dr. Baptiste accepted the patient as an inpatient at [facility] pending bed availability in [facility]. Sepsis Event Note (ED) - Focused Exam Vital Signs: Vital Signs Temp Pulse Resp BP Pulse Ox 06/19/21 21:24 97.9 F 101 H 20 188/85 H 100 06/19/21 20:56 97.9 F 101 H 20 188/85 H 100 - My Orders Last 24 Hours: My Active Orders 06/19/21 20:58 CULTURE URINE [RM] Urgent 06/19/21 21:19 CULTURE BLOOD [BC] Stat 06/19/21 21:54 Sodium Chloride 0.9% [Normal Saline] 1,000 ml IV .BOLUS 06/20/21 00:00 Sodium Chloride 0.9% [Normal Saline] 1,000 ml IV .BOLUS 06/20/21 00:04 Admission Diagnosis [ADT] Urgent Admission Status [Patient Status] [ADT] Urgent - Assessment/Plan Last 24 Hours: My Active Orders 06/19/21 20:58 CULTURE URINE [RM] Urgent 06/19/21 21:19 CULTURE BLOOD [BC] Stat 06/19/21 21:54 Sodium Chloride 0.9% [Normal Saline] 1,000 ml IV .BOLUS 06/20/21 00:00 Sodium Chloride 0.9% [Normal Saline] 1,000 ml IV .BOLUS 06/20/21 00:04 Admission Diagnosis [ADT] Urgent Admission Status [Patient Status] [ADT] Urgent
[2021-06-19 21:52] LABS: ANION GAP 26.9 mEq/L (7-13)
[2021-06-19] MEDS ORDERED: Sodium Chloride 0.9% 1,000 ML IV ONE (21:54)
[2021-06-19] MEDS ORDERED: cefTRIAXone 1 GM in Sodium Chloride 0.9% 50 ML IV ONE (23:11)
[2021-06-20] MEDS ORDERED: Sodium Chloride 0.9% 1,000 ML IV ONE
[2021-06-20] MEDS ORDERED: diphenhydrAMINE 50 MG/ML SDV IVPUSH ONE (00:17)
[2021-06-20] MEDS ORDERED: cefTRIAXone 1 GM in Sodium Chloride 0.9% 50 ML IV ONE (00:23)
[2021-06-20] MEDS ORDERED: Acetaminophen 325 MG Tab PO PRN (01:25)
[2021-06-20] MEDS ORDERED: Ondansetron 4 MG/2 ML SDV IVPUSH PRN (01:25)
[2021-06-20] MEDS ORDERED: Sodium Chloride 0.9% 10 ML Syringe FLUSH PRN (01:25)
[2021-06-20] MEDS ORDERED: Sodium Polystyrene Sulfonate 15 GM/60 ML Susp 60 ML Bot PO ONE (01:30)
[2021-06-20] MEDS ORDERED: Glucagon,Human Recombinant 1 MG Vial IM PRN (01:33)
[2021-06-20] MEDS ORDERED: hydrALAZINE 20 MG/ML SDV IVPUSH PRN (01:33)
[2021-06-20] MEDS ORDERED: 50% Dextrose in Water 50 ML Syringe IVPUSH PRN (01:33)
--- NOTE | 2021-06-20 01:37 | PCM.SN.2 ---
- Free Text/Narrative Note: START OF DOCTOR EMAMIS HISTORY AND PHYSICAL / CONSULTATION NOTE Chief Complaint: Anorexia, weakness History of Present Illness: The patient is a six 6-year-old female who presents with chief complaint of anorexia and weakness. She states she started feeling unwell approximately 1 week prior to hospitalization. She is at the onset of rigors, nausea, cough which is nonproductive, dysuria, dyspnea however she states that her dyspnea has persisted after her recovery from COVID-19 infection. The patient denies fever, vomiting, wheeze, abdominal pain, diarrhea, chest pain. She negates that she said decreased urinary output however there is been no change in color. She presents for further evaluation Surgical History: Cholecystectomy, appendectomy, right hip surgery, right below-knee amputation, bilateral cataract surgery Family History: Cancer, stroke, diabetes, coronary artery disease, hypertension Social History: Tobacco: Former smoker Alcohol: Denies Caffeine: Denies Drugs: Never Allergies: Nitrofurantoin Code Status: DNR, DNI Pertinent Laboratory Results / Pertinent Radiology Results / Pertinent Diagnostic Results / Pertinent Vital Signs: Blood pressure 188/85, pulse 101, respirations 20, temperature 97.9 degrees, 1 her percent room air, sodium 147, potassium 5.9, creatinine 4.8, hemoglobin 7.8, MCV 106.7 Physical Examination: General: -Alert -No acute distress -No dyspnea -Patient tachypneic Head: -Atraumatic -Normocephalic Eyes: -Pupils equally round and reactive to light and accommodation -Extraocular muscles intact Neurological: -Cranial nerves II-XII intact Neck: -No jugular venous distention -No thyromegaly -No cervical lymphadenopathy Heart: -iRegular rate -Regular rhythm -No murmurs -No gallops -No rubs Lungs: -No wheeze -No rhonchi -No rales Abdomen: -Normal bowel sounds in all four quadrants -No rebound -No guarding -No tenderness Extremities: -2/4 pulse in bilateral upper extremities and left lower extremity -No clubbing -No cyanosis -No edema -No left calf tenderness present -Negative left Homans sign -Patient status post right below-knee amputation Musculoskeletal: -5/5 bilateral upper extremity strength -5/5 left lower extremity strength -Sensorium of bilateral upper extremities are equal and intact -Sensorium of left lower extremity is intact Additional Details / Additional Findings / Exceptions / Miscellaneous: Assessment / Plan: Acute on chronic kidney disease. Baseline creatinine highly variable and she has not had one drawn at this facility since approximately September 2020. Strict I's/O. Daily weight. Check bilateral renal ultrasound. Calculate Aarti. Will monitor creatinine level and electrolytes intermittently. IV half-normal saline +50 M EQ sodium bicarbonate at 100 mL/h Metabolic acidosis. Likely sequelae of acute on chronic renal failure. IV half-normal saline +50 M EQ sodium bicarbonate 100 mL/h Hyperkalemia. Will monitor potassium levels intermittently and correct as necessary. Telemetry monitoring Hyponatremia. Will monitor sodium levels intermittently. IV half-normal saline +50 M EQ sodium bicarb at 100 mL/h Urinary tract infection. Zosyn 2.25 g IV every 6 hours Osteopenia History of vitamin D deficiency Arthritis Macrocytic anemia. Will monitor hemoglobin levels intermittently. Check TSH, free T4, B12, folate, serum ferritin, iron panel, fecal occult blood Coronary artery disease Diabetes. Will check fasting glucose before every meal and at bedtime and provide insulin sliding scale Hyperlipidemia Hypertension. Metoprolol 75 mg p.o. twice daily Depression Peripheral vascular disease DVT prophylaxis. Bilateral SCD Disposition: I was notified by staff in the emergency department that a call with a request for transfer have been made. Unfortunately at this time no beds at outside facilities are available however we are on the waiting list and once 1 is made available, the patient will be transferred for evaluation by nephrology. If the patient's renal function improves an appreciable amount, this may not be necessary END OF DOCTOR EMAMIS HISTORY AND PHYSICAL / CONSULTATION NOTE
[2021-06-20] MEDS ORDERED: Piperacillin/Tazobactam 2.25 GM in Sodium Chloride 0.9% 50 ML IV SCH ×4 (01:45→12:00)
[2021-06-20] MEDS ORDERED: Sodium Bicarbonate 50 MEQ in Sodium Chloride 0.45% 1,000 ML IV SCH (01:45)
[2021-06-20] MEDS: Metoprolol Tartrate 25 MG Tab PO SCH ×2 (02:16→13:07)
[2021-06-20] MEDS ORDERED: Sodium Bicarbonate 50 MEQ in Sodium Chloride 0.45% 1,000 ML IV ONE (02:51)
[2021-06-20] MEDS ORDERED: Sodium Bicarbonate 8.4% 50 MEQ/50 ML SDV ONE (03:00)
[2021-06-20 07:15] LABS: ANION GAP 26.1 mEq/L (7-13)
--- NOTE | 2021-06-20 07:55 | PCM.SN.2 ---
- Free Text/Narrative Note: START OF DOCTOR LEANN PROGRESS NOTE Subjective: The patient endorses no complaints at this time. She states that she is feeling much better than my last encounter with her. She denies fever, rigors, nausea, vomiting, wheeze, abdominal pain, chest pain, dyspnea. Upon further questioning she admits to cough. I explained to the patient her current medical condition and plan of care and I have answered all of her questions Objective: General: -Alert -No acute distress -No dyspnea -No tachypnea present at time of examination Heart: -Regular rate -Regular rhythm -No murmurs -No gallops -No rubs Lungs: -No wheeze -No rhonchi -No rales Abdomen: -Normal bowel sounds in all four quadrants -No rebound -No guarding -No tenderness Extremities: -2/4 pulse in bilateral upper extremities and left lower extremity -No clubbing -No cyanosis -No edema Additional Details / Additional Findings / Exceptions / Miscellaneous: Pertinent Laboratory Results / Pertinent Radiology Results / Pertinent Diagnostic Results / Pertinent Vital Signs: Blood pressure 167/60, respiration 24, hemoglobin 6.7, platelet count 144,000, sodium 151, creatinine 4.48 Assessment / Plan: Acute on chronic kidney disease. Baseline creatinine highly variable and she has not had one drawn at this facility since approximately September 2020. Strict I's/O. Daily weight. Check bilateral renal ultrasound. Calculate Aarti. Will monitor creatinine level and electrolytes intermittently. IV D5W +70 5M EQ sodium bicarbonate at 100 mL's per hour Metabolic acidosis. Likely sequelae of acute on chronic renal failure. IV D5W +70 5M EQ sodium bicarbonate at 100 mL's per hour Hyperkalemia. Will monitor potassium levels intermittently and correct as necessary. Telemetry monitoring Hyponatremia. Will monitor sodium levels intermittently. IV D5W +70 5M EQ's of sodium bicarbonate at 100 mL's per hour Urinary tract infection. Zosyn 2.25 g IV every 8 hours Osteopenia History of vitamin D deficiency Arthritis Thrombocytopenia. We will monitor platelet count intermittently Hypocalcemia. Will monitor calcium levels intermittently and supplement as necessary Macrocytic anemia. Will monitor hemoglobin levels intermittently. Coronary artery disease. Lipitor 10 mg p.o. nightly Diabetes. Will check fasting glucose before every meal and at bedtime and provide insulin sliding scale plus Levemir 25 units subcutaneously nightly Hyperlipidemia Hypertension. Metoprolol 75 mg p.o. twice daily Depression Peripheral vascular disease. Lipitor 10 mg p.o. nightly DVT prophylaxis. Bilateral SCD Disposition: Patient transfer pending END OF DOCTOR EMAMIS PROGRESS NOTE
[2021-06-20] MEDS ORDERED: Sodium Bicarbonate 75 MEQ in Dextrose 5% in Water 1,000 ML IV SCH ×4 (08:00→08:30)
[2021-06-20] MEDS ORDERED: Calcium Gluconate 10% 1 GM/10 ML SDV IVPUSH ONE (08:30)
[2021-06-20] MEDS: Insulin Lispro 100 Units/ML 3 ML Vial SUBCUT SCH ×2 (08:59→12:12)
[2021-06-20] MEDS ORDERED: Aspirin 325 MG Tab.EC PO SCH (09:00)
[2021-06-20] MEDS ORDERED: diphenhydrAMINE 50 MG/ML SDV IV ONE ×2 (09:00→11:30)
[2021-06-20] MEDS ORDERED: atorvaSTATin 10 MG Tab PO SCH (09:00)
[2021-06-20] MEDS ORDERED: Acetaminophen 325 MG Tab PO ONE ×2 (09:00→11:30)
[2021-06-20 11:25] LABS: ANION GAP 23.6 mEq/L (7-13)
--- NOTE | 2021-06-20 13:25 | PCM.SN.2 ---
- Free Text/Narrative Note: START OF DOCTOR EMAMIS DISCHARGE SUMMARY Date of Admission: June 20, 2021 Date of transfer: 1:22 PM on June 20, 2021 Primary Diagnosis: Acute on chronic kidney disease, baseline creatinine highly variable and her most recent baseline is unknown as the patient has not had creatinine checked at this facility since approximately September 2020 Secondary Diagnosis: Metabolic acidosis, likely sequelae of acute on chronic renal failure Hyperkalemia, resolved Hypernatremia Urinary tract infection Osteopenia History of vitamin D deficiency Arthritis Macrocytic anemia/acute anemia for which 2 units of packed red blood cells were ordered on June 20, 2021 Coronary artery disease Diabetes Hyperlipidemia Hypertension Depression Peripheral vascular disease Thrombocytopenia Hypocalcemia, status post treatment Hyperphosphatemia Consultations: None Condition on Discharge: Fair Disposition: The patient will be transferred to [facility] so that she may be evaluated by nephrology given what appears to be end-stage renal disease with resultant metabolic derangements Discharge Medications: Multivitamin 1 tab p.o. daily Zosyn 2.25 g IV every 8 hours started on June 20, 2021 for urinary tract infection IV D5W +70 5M EQ sodium bicarbonate at 100 mL/h Metoprolol 75 mg p.o. twice daily Insulin lispro subcutaneously before every meal and at bedtime per sliding scale Lantus 25 units subcutaneously nightly Hydralazine 10 mg IV every 4 hours. Systolic blood pressure greater than 150 Lipitor 10 mg p.o. nightly END OF DOCTOR EMAMIS DISCHARGE SUMMARY
[2021-06-20 14:47] VITALS: BP 177/64; PULSE 61
--- NOTE | 2021-06-20 19:54 | US ---
PROCEDURE INFORMATION: Exam: US Retroperitoneal; Complete; Kidneys and Bladder Exam date and time: 06/20/2021 8:31 AM Age: 66 years old Clinical indication: Other: Acute and chronic renal failure; Prior surgery; Surgery date: 6+ months; Surgery type: Gb; Patient HX: Increased lab values; Additional info: Acute / chronic renal failure. Bilateral renalus TECHNIQUE: Imaging protocol: Real-time ultrasound of the retroperitoneum with image documentation. Complete exam focused on the kidneys and bladder. COMPARISON: CT Chest wo Cont 09/05/2020 2:48 PM FINDINGS: Right kidney: Right kidney is 8.3 x 4.2 x 4.3 cm. No hydronephrosis. No calculi. No mass. Parenchymal echogenicity is increased suggesting medical renal disease. Left kidney: Left kidney is 9.2 x 4.5 x 4.5 cm. No hydronephrosis. No cyst, calculus, or mass. Increased parenchymal echogenicity consistent with medical renal disease. Urinary bladder: Urinary bladder is unremarkable in appearance. IMPRESSION: 1. No urinary calculi or hydronephrosis evident. 2. Kidneys are normal in size and contour bilaterally. 3. Bilateral kidneys with increased parenchymal echogenicity consistent with medical renal disease. 4. Urinary bladder is unremarkable.
--- NOTE | 2021-06-20 19:59 | CR ---
PROCEDURE INFORMATION: Exam: XR Chest Exam date and time: 06/20/2021 9:03 AM Age: 66 years old Clinical indication: Tachypnea TECHNIQUE: Imaging protocol: XR of the chest. Views: 2 views. COMPARISON: CT Chest wo Cont 09/05/2020 2:48 PM FINDINGS: Lungs: Hyperinflation consistent with COPD. Increased interstitial lung markings bilaterally likely representing interstitial edema or congestive heart failure. Cannot exclude a component of chronic interstitial disease. Pleural spaces: No pleural effusion. Heart/Mediastinum: Mild cardiac enlargement. Bones/joints: Degenerative thoracic spine disease. Organs: Previous cholecystectomy. IMPRESSION: 1. Hyperinflation suggesting COPD. 2. Increased interstitial lung markings bilaterally may represent interstitial edema or CHF. Cannot exclude a component of underlying chronic interstitial disease. There is no definable interstitial lung change in 2017 by previous chest x-ray. Interval CT chest 09/05/2020 showed what appeared to be an interstitial pneumonitis. Currently, this may be residual change from that process. 3. Mild cardiomegaly. 4. No pleural effusion.
[2021-06-20] MEDS ORDERED: Insulin Glarg,Human.Rec.Analog 100 Unit/ML SUBCUT SCH (21:00)
== END 2021-06-20 15:10 | DRG 683 ==
LOC: DL.ED 19:37 → DL.MS 06-20 00:04
PROVIDERS: ADMIT Internal Medicine; ATTEND Internal Medicine
PROC: 30233N1 Transfusion of Nonautologous Red Blood Cells into Peripheral Vein, Percutaneous Approach (ICD-10-PCS; principal; 2021-06-20)
DX: N17.9 Acute kidney failure, unspecified (principal); E87.2 Acidosis; E87.0 Hyperosmolality and hypernatremia; E87.1 Hypo-osmolality and hyponatremia; I10 Essential (primary) hypertension; N28.9 Disorder of kidney and ureter, unspecified; N18.6 End stage renal disease; E87.5 Hyperkalemia; E11.9 Type 2 diabetes mellitus without complications; M85.80 Other specified disorders of bone density and structure, unspecified site; Z20.822 Contact with and (suspected) exposure to COVID-19; M19.90 Unspecified osteoarthritis, unspecified site; I25.10 Atherosclerotic heart disease of native coronary artery without angina pectoris; E78.5 Hyperlipidemia, unspecified; N10 Acute pyelonephritis; F32.9 Major depressive disorder, single episode, unspecified; D69.6 Thrombocytopenia, unspecified; E83.51 Hypocalcemia; E83.39 Other disorders of phosphorus metabolism; I73.9 Peripheral vascular disease, unspecified; D63.1 Anemia in chronic kidney disease; H54.7 Unspecified visual loss; E11.51 Type 2 diabetes mellitus with diabetic peripheral angiopathy without gangrene; I12.9 Hypertensive chronic kidney disease with stage 1 through stage 4 chronic kidney disease, or unspecified chronic kidney disease; E11.22 Type 2 diabetes mellitus with diabetic chronic kidney disease; Z90.49 Acquired absence of other specified parts of digestive tract; Z98.41 Cataract extraction status, right eye; Z98.42 Cataract extraction status, left eye; Z89.511 Acquired absence of right leg below knee; Z86.16 Personal history of COVID-19; Z79.4 Long term (current) use of insulin; Z79.82 Long term (current) use of aspirin; Z79.899 Other long term (current) drug therapy
CPT/HCPCS: 36415; 36430; 71046; 76770; 80048; 80053; 81001; 82272; 82570; 82607; 82728; 82746; 82947; 83540; 83550; 83735; 83970; 84100; 84300; 84439; 84443; 85025; 86850; 86900; 86901; 86920; 86922; 87040; 87086; 87088; 87186; 96374; 99284; 99284-25; A9270-GY; J0360; J0610; J0696; J1200; J2543; J7030; J7060; P9016; U0002

== ENCOUNTER 2021-06-29 23:14 | Emergency (ER) | payer MEDICARE, MEDICAID ==
[2021-06-30] MEDS ORDERED: Sodium Chloride 0.9% 10 ML Syringe FLUSH PRN (01:09)
--- NOTE | 2021-06-30 01:10 | EDM.PDOC ---
ED HPI GENERAL MEDICAL PROBLEM - General Chief Complaint: General Stated Complaint: STINTS IN STOMACH BLEEDING Time Seen by Provider: 06/30/21 01:07 Source of Information: Reports: Patient History Limitations: Reports: No Limitations - History of Present Illness INITIAL COMMENTS - FREE TEXT/NARRATIVE: Patient is a unfortunate 66-year-old female who presents emerged de partment today with complaint of postoperative wound bleeding. The patient reports that she was at [facility] 2 days ago had a peritoneal dialysis access placed and was discharged home today got home today and this evening started having bleeding from around her catheter access site, she reports that the bleeding has been continuous since the mild oozing and she became concerned and presented to the emergency department this evening for further evaluation. Patient has had no fever no chills no nausea no vomiting no chest pain or shortness of breath she was to start peritoneal dialysis in 2 days - Related Data Allergies Allergy/AdvReac Type Severity Reaction Status Date / Time No Known Allergies Allergy Verified 06/30/21 00:09 Home Meds: Home Meds atorvaSTATin [Lipitor] 40 mg PO DAILY 07/26/18 [History] Ergocalciferol (Vitamin D2) [Vitamin D2] 50,000 units PO WEEKLY 06/30/21 [History] Torsemide 40 mg PO DAILY 06/30/21 [History] Vit B Cmplx NO3/Fa/C/Biot/Zinc [Nephplex Rx] 1 tab PO DAILY 06/30/21 [History] hydrALAZINE [Apresoline] 100 mg PO TID 06/30/21 [History] lisinopriL [Lisinopril] 20 mg PO DAILY 06/30/21 [History] Past Medical History HEENT History: Reports: Cataract, Impaired Vision Other HEENT History: wears glasses Cardiovascular History: Reports: CAD, Hypertension Respiratory History: Reports: Bronchitis, Recurrent, Other (See Below) Other Respiratory History: COVID fall 2019 Gastrointestinal History: Reports: None Genitourinary History: Reports: Renal Disease [employer] History: Reports: None Musculoskeletal History: Reports: Arthritis Other Musculoskeletal History: right below the knee amputation Neurological History: Reports: None Psychiatric History: Reports: None Endocrine/Metabolic History: Reports: Diabetes, Type II Hematologic History: Reports: None Immunologic History: Reports: None Oncologic (Cancer) History: Reports: None Dermatologic History: Reports: None - Infectious Disease History Infectious Disease History: Reports: Chicken Pox, Other (See Below) Other Infectious Disease History: Covid in August 2020 - Past Surgical History Head Surgeries/Procedures: Reports: None HEENT Surgical History: Reports: Cataract Surgery Cardiovascular Surgical History: Reports: None Respiratory Surgical History: Reports: None GI Surgical History: Reports: Appendectomy, Cholecystectomy Female Surgical History: Reports: None Endocrine Surgical History: Reports: None Neurological Surgical History: Reports: None Musculoskeletal Surgical History: Reports: Amputation, Other (See Below) Other Musculoskeletal Surgeries/Procedures:: right side hip fx with pins Oncologic Surgical History: Reports: None Dermatological Surgical History: Reports: None Social & Family History - Family History Family Medical History: No Pertinent Family History - Tobacco Use Tobacco Use Status *Q: Never Tobacco User - Caffeine Use Caffeine Use: Reports: None - Recreational Drug Use Recreational Drug Use: No - Living Situation & Occupation Living situation: Reports: with Family Occupation: Disabled ED ROS GENERAL - Review of Systems Review Of Systems: See Below Constitutional: Denies: Fever, Chills Skin: Reports: Other (post Operative wound bleeding) ED EXAM, GENERAL - Physical Exam Exam: See Below Exam Limited By: No Limitations General Appearance: Alert, WD/WN, Obese Neck: Normal Inspection, Supple, Non-Tender, Full Range of Motion Respiratory/Chest: No Respiratory Distress, Lungs Clear, Normal Breath Sounds, No Accessory Muscle Use, Chest Non-Tender Cardiovascular: Normal Peripheral Pulses, Regular Rate, Rhythm, No Edema, No Gallop, No JVD, No Murmur, No Rub GI/Abdominal: Normal Bowel Sounds, Soft, Non-Tender, No Organomegaly, No Distention, No Abnormal Bruit, No Mass, Other (Peritoneal dialysis catheter site has mild oozing of bright red blood, the rest of the surgical incisions are well-healed well approximated and covered with Dermabond patient denies any pain at this time) Back Exam: Normal Inspection, Full Range of Motion, NT Extremities: Normal Inspection, Normal Range of Motion, Non-Tender, Normal Capillary Refill, No Pedal Edema Neurological: Alert, Oriented Skin Exam: Warm, Dry, Intact, No Rash Course - Vital Signs Text/Narrative:: Work-up today is reassuring, will discharge patient to home have patient follow- up outpatient with PCP or return to the emergency department for any worsening condition, the patient has no further bleeding at this time Last Recorded V/S: Last Vital Signs Temp 97.7 F 06/30/21 01:33 Pulse 73 06/30/21 01:33 Resp 16 06/30/21 01:33 BP 173/66 H 06/30/21 01:33 Pulse Ox 94 L 06/30/21 01:33 - Orders/Labs/Meds Orders: Active Orders 24 hr Category Date Time Status Peripheral IV Care [RC] . DIRECTED Care 06/30/21 01:09 Active Sodium Chloride 0.9% [Saline Flush] Med 06/30/21 01:09 Active 10 ml FLUSH ASDIRECTED PRN Peripheral IV Insertion Adult [OM.PC] Routine Oth 06/30/21 01:08 Ordered Medication Orders Sodium Chloride (Sodium Chloride 0.9% 10 Ml Syringe) 10 ml FLUSH ASDIRECTED PRN PRN Reason: Keep Vein Open Last Admin: 06/30/21 02:27 Dose: 10 ml Documented by: DONNY Labs: Laboratory Tests 06/30/21 06/30/21 06/30/21 Range/Units 01:30 01:30 01:30 WBC 7.4 (5.0-10.0) 10^3/uL RBC 2.55 L (4.2-5.4) 10^6/uL Hgb 8.1 L D (12.0-16.0) g/dL Hct 25.6 L (37.0-47.0) % MCV 100.4 H D (80-100) fL MCH 31.8 (27.0-34.0) pg MCHC 31.6 L (33.0-35.0) g/dL Plt Count 120 L (150-450) 10^3/uL Neut % (Auto) 62.7 (42.2-75.2) % Lymph % (Auto) 22.0 (20.5-50.1) % [place] % (Auto) 11.4 H (2-8) % Eos % (Auto) 3.6 H (1.0-3.0) % Baso % (Auto) 0.3 (0.0-1.0) % PT 12.1 H (9.0-12.0) SEC INR 1.2 (0.9-1.2) Sodium 141 (136-145) mmol/L Potassium 3.2 L (3.5-5.1) mmol/L Chloride 101 D (98-107) mmol/L Carbon Dioxide 30 D (21-32) mmol/L Anion Gap 13.2 H (7-13) mEq/L BUN 40 H (7-18) mg/dL Creatinine 5.39 H* (0.55-1.02) mg/dL Est Cr Clr Drug Dosing 8.38 mL/min Estimated GFR (MDRD) 8 BUN/Creatinine Ratio 7.4 (No establ ref range) Glucose 96 (70-99) mg/dL Calcium 8.2 L (8.5-10.1) mg/dL Total Bilirubin 0.4 (0.2-1.0) mg/dL AST 31 (15-37) U/L ALT 11 L (14-59) U/L Alkaline Phosphatase 61 (46-116) U/L Total Protein 6.0 L (6.4-8.2) g/dL Albumin 2.6 L (3.4-5.0) g/dL Globulin 3.4 Albumin/Globulin Ratio 0.76 Meds: Medications Generic Name Dose Route Start Last Admin Trade Name Freq PRN Reason Stop Dose Admin Sodium Chloride 10 ml 06/30/21 01:09 06/30/21 02:27 Sodium Chloride 0.9% 10 Ml Syringe FLUSH 10 ml ASDIRECTED PRN Administration Keep Vein Open Departure - Departure Time of Disposition: 02:45 Disposition: Home, Self-Care 01 Condition: Good Clinical Impression: Post-op bleeding Qualifiers: Surgical complication system/body Area: subcutaneous tissue Procedure type: non-dermatologic Qualified Code(s): L76.22 - Postprocedural hemorrhage of skin and subcutaneous tissue following other procedure - Discharge Information *PRESCRIPTION DRUG MONITORING PROGRAM REVIEWED*: No *COPY OF PRESCRIPTION DRUG MONITORING REPORT IN PATIENT DANA: No Forms: ED Department Discharge Additional Instructions: Return as needed for any worsening condition Sepsis Event Note (ED) - Evaluation Sepsis Screening Result: No Definite Risk - Focused Exam Vital Signs: Vital Signs Temp Pulse Resp BP Pulse Ox 06/30/21 01:33 97.7 F 73 16 173/66 H 94 L 06/30/21 00:07 96.7 F L 74 16 164/97 H 96 06/29/21 23:51 96.7 F L 74 16 164/97 H 96 - My Orders Last 24 Hours: My Active Orders 06/30/21 01:08 Peripheral IV Insertion Adult [OM.PC] Routine 06/30/21 01:09 Peripheral IV Care [RC] . DIRECTED Sodium Chloride 0.9% [Saline Flush] 10 ml FLUSH ASDIRECTED PRN - Assessment/Plan Last 24 Hours: My Active Orders 06/30/21 01:08 Peripheral IV Insertion Adult [OM.PC] Routine 06/30/21 01:09 Peripheral IV Care [RC] . DIRECTED Sodium Chloride 0.9% [Saline Flush] 10 ml FLUSH ASDIRECTED PRN
[2021-06-30 01:53] LABS: ANION GAP 13.2 mEq/L (7-13)
--- NOTE | 2021-06-30 02:11 | CT ---
PROCEDURE INFORMATION: Exam: CT Abdomen And Pelvis Without Contrast Exam date and time: 06/30/2021 1:19 AM Age: 66 years old Clinical indication: Other: Post tube insertion; Additional info: Post op bleeding TECHNIQUE: Imaging protocol: Computed tomography of the abdomen and pelvis without contrast. Radiation optimization: All CT scans at this facility use at least one of these dose optimization techniques: automated exposure control; mA and/or kV adjustment per patient size (includes targeted exams where dose is matched to clinical indication); or iterative reconstruction. COMPARISON: US Retroperitoneal Comp 06/20/2021 8:31 AM FINDINGS: Lungs: The lung bases are clear. No effusion Pleural spaces: Small bilateral pleural effusions. Liver: There is cirrhotic morphology of the liver. Gallbladder and bile ducts: There has been a cholecystectomy. Pancreas: Normal. No ductal dilation. Spleen: Normal. No splenomegaly. Adrenal glands: Normal. No mass. Kidneys and ureters: Normal. No hydronephrosis. Stomach and bowel: Diverticulosis without diverticulitis. Appendix: Appendix has been removed. Intraperitoneal space: Moderate amount of free intraperitoneal air. Vasculature: Unremarkable. No abdominal aortic aneurysm. Lymph nodes: Unremarkable. No enlarged lymph nodes. Urinary bladder: Unremarkable as visualized. Reproductive: Unremarkable as visualized. Bones/joints: Unremarkable. No acute fracture. Soft tissues: There is edema surrounding the region of the peritoneal dialysis catheter as it transitions the subcutaneous fat. There is mild anasarca. IMPRESSION: 1. There is edema surrounding the region of the peritoneal dialysis catheter as it transitions the subcutaneous fat. 2. Small bilateral pleural effusions. 3. Free intraperitoneal air, likely related to PD catheter. 4. Cirrhosis. 5. Diverticulosis without diverticulitis. 6. There is mild anasarca.
[2021-06-30 02:49] VITALS: BP 160/61; PULSE 74
== END 2021-06-30 02:58 | disposition home or self-care (01) ==
LOC: DL.ED 23:14
DX: L76.22 Postprocedural hemorrhage of skin and subcutaneous tissue following other procedure (principal); I10 Essential (primary) hypertension; I25.10 Atherosclerotic heart disease of native coronary artery without angina pectoris; E11.9 Type 2 diabetes mellitus without complications; Z86.16 Personal history of COVID-19; Z79.899 Other long term (current) drug therapy
CPT/HCPCS: 36415; 74176; 80053; 85025; 85610; 99284-25

== ENCOUNTER 2021-10-24 02:55 | Observation (INO) | payer MEDICARE, MEDICAID ==
[2021-10-24 03:43] LABS: ANION GAP 21.8 mEq/L (7-13)
--- NOTE | 2021-10-24 03:55 | EDM.PDOC ---
ED HPI GENERAL MEDICAL PROBLEM - General Chief Complaint: Chest Pain Stated Complaint: AMBULANCE Time Seen by Provider: 10/24/21 03:20 Source of Information: Reports: Patient History Limitations: Reports: No Limitations - History of Present Illness INITIAL COMMENTS - FREE TEXT/NARRATIVE: This 66 yo female patient reports to the ED with right sided chest pain. The patient reports her chest pain started last night at about 2200 and has returned every time she would lay down. The patient reports she had dry heaves and vomiting (brown stuff). The patient reports she no longer has any pain or complaints. The patient denies any additional symptoms or concerns at this time. Onset Date: 10/23/21 Onset Time: 22:00 Duration: Intermittent, Resolved Prior to Arrival Location: Reports: Chest (right sided chest wall pain) Quality: Reports: Ache, Dull Severity: Mild Improves with: Reports: None Worsens with: Reports: None Associated Symptoms: Reports: No Other Symptoms - Related Data Allergies Allergy/AdvReac Type Severity Reaction Status Date / Time No Known Allergies Allergy Verified 10/24/21 02:57 Home Meds: Home Meds atorvaSTATin [Lipitor] 10 mg PO BEDTIME 07/26/18 [History] Vit B Cmplx NO3/Fa/C/Biot/Zinc [Nephplex Rx] 1 tab PO DAILY 06/30/21 [History] hydrALAZINE [Apresoline] 100 mg PO TID 06/30/21 [History] lisinopriL [Lisinopril] 40 mg PO DAILY 06/30/21 [History] Aspirin [Ecotrin EC] 325 mg PO DAILY 10/24/21 [History] Calcium Citrate/Vitamin D3 [Calcium Citrate - Vit D Tablet] 1 tab PO DAILY 10/24/21 [History] Furosemide [Lasix] 160 mg PO BID 10/24/21 [History] Potassium Chloride [Klor-Con] 20 meq PO DAILY 10/24/21 [History] Past Medical History HEENT History: Reports: Impaired Vision Other HEENT History: wears glasses Cardiovascular History: Reports: CAD, Hypertension Respiratory History: Reports: Bronchitis, Recurrent, Other (See Below) Other Respiratory History: COVID fall 2019 Gastrointestinal History: Reports: None Genitourinary History: Reports: Dialysis, Peritoneal, Renal Disease HAT LACER History: Reports: None, Spontaneous Musculoskeletal History: Reports: Arthritis Other Musculoskeletal History: right below the knee amputation Neurological History: Reports: None Psychiatric History: Reports: None Endocrine/Metabolic History: Reports: Diabetes, Type II, Obesity/BMI 30+ Hematologic History: Reports: None Immunologic History: Reports: None Oncologic (Cancer) History: Reports: None Dermatologic History: Reports: None - Infectious Disease History Infectious Disease History: Reports: Chicken Pox, Novel Coronavirus, Other (See Below) Other Infectious Disease History: Covid in August 2020 - Past Surgical History Head Surgeries/Procedures: Reports: None HEENT Surgical History: Reports: Cataract Surgery Cardiovascular Surgical History: Reports: None Respiratory Surgical History: Reports: None GI Surgical History: Reports: Appendectomy, Cholecystectomy Female Surgical History: Reports: None Endocrine Surgical History: Reports: None Neurological Surgical History: Reports: None Musculoskeletal Surgical History: Reports: Amputation, Other (See Below) Other Musculoskeletal Surgeries/Procedures:: right side hip fx with pins Oncologic Surgical History: Reports: None Dermatological Surgical History: Reports: None Social & Family History - Family History Family Medical History: No Pertinent Family History - Tobacco Use Tobacco Use Status *Q: Never Tobacco User Second Hand Smoke Exposure: No - Caffeine Use Caffeine Use: Reports: Coffee - Recreational Drug Use Recreational Drug Use: No - Living Situation & Occupation Living situation: Reports: with Family Occupation: Disabled ED ROS GENERAL - Review of Systems Review Of Systems: Comprehensive ROS is negative, except as noted in HPI. ED EXAM, GENERAL - Physical Exam Exam: See Below Exam Limited By: No Limitations General Appearance: Alert, WD/WN, Moderate Distress Eye Exam: Bilateral Eye: EOMI, Normal Inspection, PERRL Ears: Normal External Exam, Normal Canal, Hearing Grossly Normal, Normal TMs Nose: Normal Inspection, Normal Mucosa, No Blood Throat/Mouth: Normal Inspection, Normal Lips, Normal Teeth, Normal Gums, Normal Oropharynx, Normal Voice, No Airway Compromise Head: Atraumatic, Normocephalic Neck: Normal Inspection, Supple, Non-Tender, Full Range of Motion Respiratory/Chest: No Respiratory Distress, Lungs Clear, Normal Breath Sounds, No Accessory Muscle Use, Chest Non-Tender Cardiovascular: Normal Peripheral Pulses, Regular Rate, Rhythm, No Edema, No Gallop, No JVD, No Murmur, No Rub GI/Abdominal: Normal Bowel Sounds, Soft, Non-Tender, No Organomegaly, No Distention, No Abnormal Bruit, No Mass (Female) Exam: Deferred Rectal (Female) Exam: Deferred Back Exam: Normal Inspection, Full Range of Motion, NT Extremities: Normal Inspection, Normal Range of Motion, Non-Tender, Normal Capillary Refill, No Pedal Edema Neurological: Alert, Oriented, CN II-XII Intact, Normal Cognition, Normal Gait, Normal Reflexes, No Motor/Sensory Deficits Psychiatric: Normal Affect, Normal Mood Skin Exam: Warm, Dry, Intact, Normal Color, No Rash Lymphatic: No Adenopathy #1 Interpretation EKG Date: 10/24/21 Time: 03:04 Rhythm: NSR Rate (Beats/Min): 87 Damon: Normal P-Wave: Present QRS: Normal ST-T: Normal QT: Normal Comparison: NA - No Prior EKG Course - Vital Signs Last Recorded V/S: Last Vital Signs Temp 98.3 F 10/24/21 02:57 Pulse 88 10/24/21 02:57 Resp 28 H 10/24/21 02:57 BP 149/70 H 10/24/21 02:57 Pulse Ox 99 10/24/21 02:57 - Orders/Labs/Meds Orders: Active Orders 24 hr Category Date Time Status Admission Diagnosis [ADT] Urgent ADT 10/24/21 04:34 Ordered Admission Status [Patient Status] [ADT] Routine ADT 10/24/21 04:34 Ordered CULTURE BLOOD [BC] Stat Lab 10/24/21 03:05 Received REFLEX LACTIC ACID YES OR NO [CHEM] Routine Lab 10/24/21 03:48 Received TROPONIN I HIGH SENSITIVITY [CHEM] Stat Lab 10/24/21 04:11 Ordered Labs: Laboratory Tests 10/24/21 10/24/21 10/24/21 Range/Units 03:00 03:05 03:05 WBC 5.4 (5.0-10.0) 10^3/uL RBC 3.08 L (4.2-5.4) 10^6/uL Hgb 10.3 L D (12.0-16.0) g/dL Hct 31.5 L (37.0-47.0) % MCV 102.3 H (80-100) fL MCH 33.4 (27.0-34.0) pg MCHC 32.7 L (33.0-35.0) g/dL Plt Count 215 D (150-450) 10^3/uL Neut % (Auto) 73.4 (42.2-75.2) % Lymph % (Auto) 19.2 L (20.5-50.1) % [place] % (Auto) 7.2 (2-8) % Eos % (Auto) 0.0 L (1.0-3.0) % Baso % (Auto) 0.2 (0.0-1.0) % D-Dimer, Quantitative (0-400) ng/mL Sodium 140 (136-145) mmol/L Potassium 2.8 L (3.5-5.1) mmol/L Chloride 99 (98-107) mmol/L Carbon Dioxide 22 (21-32) mmol/L Anion Gap 21.8 H (7-13) mEq/L BUN 41 H (7-18) mg/dL Creatinine 5.48 H* (0.55-1.02) mg/dL Est Cr Clr Drug Dosing 8.24 mL/min Estimated GFR (MDRD) 8 BUN/Creatinine Ratio 7.5 (No establ ref range) Glucose 170 H (70-99) mg/dL Lactic Acid (0.4-2.0) mmol/L Calcium 8.4 L (8.5-10.1) mg/dL Total Bilirubin 0.4 (0.2-1.0) mg/dL AST 13 L (15-37) U/L ALT 14 (14-59) U/L Alkaline Phosphatase 106 (46-116) U/L Troponin I High Sens 86 H* (<=51) pg/mL B-Natriuretic Peptide (0-100) pg/ml Total Protein 7.6 (6.4-8.2) g/dL Albumin 2.8 L (3.4-5.0) g/dL Globulin 4.8 Albumin/Globulin Ratio 0.58 Influenza Type A RNA Negative (NEGATIVE) Influenza Type B RNA Negative (NEGATIVE) SARS-CoV-2 RNA (PHAN) Negative (NEGATIVE) 10/24/21 10/24/21 10/24/21 Range/Units 03:05 03:05 03:05 WBC (5.0-10.0) 10^3/uL RBC (4.2-5.4) 10^6/uL Hgb (12.0-16.0) g/dL Hct (37.0-47.0) % MCV (80-100) fL MCH (27.0-34.0) pg MCHC (33.0-35.0) g/dL Plt Count (150-450) 10^3/uL Neut % (Auto) (42.2-75.2) % Lymph % (Auto) (20.5-50.1) % [place] % (Auto) (2-8) % Eos % (Auto) (1.0-3.0) % Baso % (Auto) (0.0-1.0) % D-Dimer, Quantitative 1450 H (0-400) ng/mL Sodium (136-145) mmol/L Potassium (3.5-5.1) mmol/L Chloride (98-107) mmol/L Carbon Dioxide (21-32) mmol/L Anion Gap (7-13) mEq/L BUN (7-18) mg/dL Creatinine (0.55-1.02) mg/dL Est Cr Clr Drug Dosing mL/min Estimated GFR (MDRD) BUN/Creatinine Ratio (No establ ref range) Glucose (70-99) mg/dL Lactic Acid 3.8 H* (0.4-2.0) mmol/L Calcium (8.5-10.1) mg/dL Total Bilirubin (0.2-1.0) mg/dL AST (15-37) U/L ALT (14-59) U/L Alkaline Phosphatase (46-116) U/L Troponin I High Sens (<=51) pg/mL B-Natriuretic Peptide 281 H (0-100) pg/ml Total Protein (6.4-8.2) g/dL Albumin (3.4-5.0) g/dL Globulin Albumin/Globulin Ratio Influenza Type A RNA (NEGATIVE) Influenza Type B RNA (NEGATIVE) SARS-CoV-2 RNA (PHAN) (NEGATIVE) - Re-Assessments/Exams Free Text/Narrative Re-Assessment/Exam: 10/24/21 04:37 In an attempt to transfer the patient to another facility, the following facilities were called: 1) [facility] @ 0413 no beds available 2) [place] @ 0416 no beds available 3) [facility] in [place] @ 0417 no beds available 4) [facility] in [place] @ 0419 on waiting list 5) A call was placed to [facility] no transfers until after 0800 due to weather Departure - Departure Time of Disposition: 04:40 Disposition: Admitted As Inpatient 65 Condition: Fair Clinical Impression: Elevated troponin I level, Elevated d-dimer Chest pain Qualifiers: Chest pain type: unspecified Qualified Code(s): R07.9 - Chest pain, unspecified Care Plan Goals: Discussed the patient's history, examination, and lab results with Dr. Hernandez. Dr. Hernandez accepted the patient for continued evaluation and management as an inpatient at [facility]. Sepsis Event Note (ED) - Evaluation Sepsis Screening Result: No Definite Risk - Focused Exam Vital Signs: Vital Signs Temp Pulse Resp BP Pulse Ox 10/24/21 02:57 98.3 F 88 28 H 149/70 H 99 - My Orders Last 24 Hours: My Active Orders 10/24/21 03:05 CULTURE BLOOD [BC] Stat 10/24/21 03:48 REFLEX LACTIC ACID YES OR NO [CHEM] Routine 10/24/21 04:11 TROPONIN I HIGH SENSITIVITY [CHEM] Stat 10/24/21 04:34 Admission Diagnosis [ADT] Urgent Admission Status [Patient Status] [ADT] Routine - Assessment/Plan Last 24 Hours: My Active Orders 10/24/21 03:05 CULTURE BLOOD [BC] Stat 10/24/21 03:48 REFLEX LACTIC ACID YES OR NO [CHEM] Routine 10/24/21 04:11 TROPONIN I HIGH SENSITIVITY [CHEM] Stat 10/24/21 04:34 Admission Diagnosis [ADT] Urgent Admission Status [Patient Status] [ADT] Routine
[2021-10-24 04:05] LABS: CORONAVIRUS COVID-19 NAA NEGATIVE (NEGATIVE)
[2021-10-24] MEDS ORDERED: cefTRIAXone 1 GM in Sodium Chloride 0.9% 50 ML IV ONE (04:57)
[2021-10-24] MEDS ORDERED: Heparin Sodium/0.45% NaCl 25,000 UNITS/500 ML BAG IV SCH ×2 (05:15→05:30)
[2021-10-24] MEDS ORDERED: Ondansetron 4 MG Tab.DIS PO PRN (08:30)
[2021-10-24] MEDS ORDERED: Acetaminophen 325 MG Tab PO PRN (08:30)
[2021-10-24] MEDS ORDERED: oxyCODONE 5 MG Tab PO PRN (08:30)
[2021-10-24] MEDS ORDERED: Sodium Chloride 0.9% 10 ML Syringe FLUSH PRN (08:30)
[2021-10-24] MEDS ORDERED: Aspirin 325 MG Tab.EC PO SCH (09:00)
[2021-10-24] MEDS ORDERED: [UNRECOGNIZED DRUG - REMARK] PO SCH (09:00)
[2021-10-24] MEDS ORDERED: Sodium Chloride 0.9% 10 ML Syringe FLUSH SCH (09:00)
[2021-10-24] MEDS ORDERED: Lisinopril 20 MG Tab PO SCH (09:00)
[2021-10-24] MEDS: hydrALAZINE 25 MG Tab PO SCH ×2 (09:45→15:36)
[2021-10-24] MEDS: Furosemide 80 MG Tab PO SCH ×2 (09:46→15:39)
--- NOTE | 2021-10-24 10:42 | PCM.HP ---
H&P History of Present Illness - General Date of Service: 10/24/21 Admit Problem/Dx: Admission Diagnosis/Problem Admission Diagnosis/Problem Chest pain Source of Information: Patient - History of Present Illness Initial Comments - Free Text/Narative: 66 yo with h/o ESRD on home PD, cad presented with chest pain, developing at rest, resolved in er had associated sob pain was worse when laying back had associated nausea with brown vomitus no h/o heart burn symptoms - Related Data Allergies/Adverse Reactions: Allergies Allergy/AdvReac Type Severity Reaction Status Date / Time No Known Allergies Allergy Verified 10/24/21 02:57 Home Medications: Home Meds atorvaSTATin [Lipitor] 10 mg PO BEDTIME 07/26/18 [History] Vit B Cmplx NO3/Fa/C/Biot/Zinc [Nephplex Rx] 1 tab PO DAILY 06/30/21 [History] hydrALAZINE [Apresoline] 100 mg PO TID 06/30/21 [History] lisinopriL [Lisinopril] 40 mg PO DAILY 06/30/21 [History] Aspirin [Ecotrin EC] 325 mg PO DAILY 10/24/21 [History] Calcium Citrate/Vitamin D3 [Calcium Citrate - Vit D Tablet] 1 tab PO DAILY 10/24/21 [History] Furosemide [Lasix] 160 mg PO BID 10/24/21 [History] Potassium Chloride [Klor-Con] 20 meq PO DAILY 10/24/21 [History] Past Medical History HEENT History: Reports: Impaired Vision Other HEENT History: wears glasses Cardiovascular History: Reports: CAD, Hypertension Respiratory History: Reports: Bronchitis, Recurrent, Other (See Below) Other Respiratory History: COVID fall 2019 Gastrointestinal History: Reports: None Genitourinary History: Reports: Dialysis, Peritoneal, Renal Disease BARK GRINDER History: Reports: None, Spontaneous Musculoskeletal History: Reports: Arthritis Other Musculoskeletal History: right below the knee amputation Neurological History: Reports: None Psychiatric History: Reports: None Endocrine/Metabolic History: Reports: Diabetes, Type II, Obesity/BMI 30+ Hematologic History: Reports: None Immunologic History: Reports: None Oncologic (Cancer) History: Reports: None Dermatologic History: Reports: None - Infectious Disease History Infectious Disease History: Reports: Chicken Pox, Novel Coronavirus Other Infectious Disease History: Covid in August 2020 - Past Surgical History Head Surgeries/Procedures: Reports: None HEENT Surgical History: Reports: Cataract Surgery Cardiovascular Surgical History: Reports: None Respiratory Surgical History: Reports: None GI Surgical History: Reports: Appendectomy, Cholecystectomy Female Surgical History: Reports: None Endocrine Surgical History: Reports: None Neurological Surgical History: Reports: None Musculoskeletal Surgical History: Reports: Amputation, Other (See Below) Other Musculoskeletal Surgeries/Procedures:: right side hip fx with pins Oncologic Surgical History: Reports: None Dermatological Surgical History: Reports: None Social & Family History - Family History Family Medical History: No Pertinent Family History - Tobacco Use Tobacco Use Status *Q: Never Tobacco User Second Hand Smoke Exposure: No - Caffeine Use Caffeine Use: Reports: Coffee - Recreational Drug Use Recreational Drug Use: No - Living Situation & Occupation Living situation: Reports: with Family Occupation: Disabled H&P Review of Systems - Review of Systems: Review Of Systems: See Below General: Denies: Fever, Chills, Malaise Pulmonary: Reports: Shortness of Breath Cardiovascular: Reports: Chest Pain. Denies: Edema Gastrointestinal: Denies: Abdominal Pain Psychiatric: Denies: Confusion Exam - Exam Exam: See Below - Vital Signs Vital Signs: Last Vital Signs Temp 98.9 F 10/24/21 07:47 Pulse 89 10/24/21 07:47 Resp 20 10/24/21 07:47 BP 157/63 H 10/24/21 09:46 Pulse Ox 97 10/24/21 09:52 Weight: 149 lb - Exam General: Alert, Oriented Neck: Supple Lungs: Clear to Auscultation, Normal Respiratory Effort GI/Abdominal Exam: Normal Bowel Sounds, Soft, Non-Tender Extremities: No Pedal Edema - Patient Data Lab Results Last 24 hrs: Laboratory Results - last 24 hr 10/24/21 10/24/21 10/24/21 Range/Units 03:00 03:05 03:05 WBC 5.4 (5.0-10.0) 10^3/uL RBC 3.08 L (4.2-5.4) 10^6/uL Hgb 10.3 L D (12.0-16.0) g/dL Hct 31.5 L (37.0-47.0) % MCV 102.3 H (80-100) fL MCH 33.4 (27.0-34.0) pg MCHC 32.7 L (33.0-35.0) g/dL Plt Count 215 D (150-450) 10^3/uL Neut % (Auto) 73.4 (42.2-75.2) % Lymph % (Auto) 19.2 L (20.5-50.1) % [place] % (Auto) 7.2 (2-8) % Eos % (Auto) 0.0 L (1.0-3.0) % Baso % (Auto) 0.2 (0.0-1.0) % APTT (22.0-34.0) SEC D-Dimer, Quantitative (0-400) ng/mL Sodium 140 (136-145) mmol/L Potassium 2.8 L (3.5-5.1) mmol/L Chloride 99 (98-107) mmol/L Carbon Dioxide 22 (21-32) mmol/L Anion Gap 21.8 H (7-13) mEq/L BUN 41 H (7-18) mg/dL Creatinine 5.48 H* (0.55-1.02) mg/dL Est Cr Clr Drug Dosing 8.24 mL/min Estimated GFR (MDRD) 8 BUN/Creatinine Ratio 7.5 (No establ ref range) Glucose 170 H (70-99) mg/dL Lactic Acid (0.4-2.0) mmol/L Calcium 8.4 L (8.5-10.1) mg/dL Total Bilirubin 0.4 (0.2-1.0) mg/dL AST 13 L (15-37) U/L ALT 14 (14-59) U/L Alkaline Phosphatase 106 (46-116) U/L Troponin I High Sens 86 H* (<=51) pg/mL B-Natriuretic Peptide (0-100) pg/ml Total Protein 7.6 (6.4-8.2) g/dL Albumin 2.8 L (3.4-5.0) g/dL Globulin 4.8 Albumin/Globulin Ratio 0.58 Influenza Type A RNA Negative (NEGATIVE) Influenza Type B RNA Negative (NEGATIVE) SARS-CoV-2 RNA (PHAN) Negative (NEGATIVE) 10/24/21 10/24/21 10/24/21 Range/Units 03:05 03:05 03:05 WBC (5.0-10.0) 10^3/uL RBC (4.2-5.4) 10^6/uL Hgb (12.0-16.0) g/dL Hct (37.0-47.0) % MCV (80-100) fL MCH (27.0-34.0) pg MCHC (33.0-35.0) g/dL Plt Count (150-450) 10^3/uL Neut % (Auto) (42.2-75.2) % Lymph % (Auto) (20.5-50.1) % [place] % (Auto) (2-8) % Eos % (Auto) (1.0-3.0) % Baso % (Auto) (0.0-1.0) % APTT (22.0-34.0) SEC D-Dimer, Quantitative 1450 H (0-400) ng/mL Sodium (136-145) mmol/L Potassium (3.5-5.1) mmol/L Chloride (98-107) mmol/L Carbon Dioxide (21-32) mmol/L Anion Gap (7-13) mEq/L BUN (7-18) mg/dL Creatinine (0.55-1.02) mg/dL Est Cr Clr Drug Dosing mL/min Estimated GFR (MDRD) BUN/Creatinine Ratio (No establ ref range) Glucose (70-99) mg/dL Lactic Acid 3.8 H* (0.4-2.0) mmol/L Calcium (8.5-10.1) mg/dL Total Bilirubin (0.2-1.0) mg/dL AST (15-37) U/L ALT (14-59) U/L Alkaline Phosphatase (46-116) U/L Troponin I High Sens (<=51) pg/mL B-Natriuretic Peptide 281 H (0-100) pg/ml Total Protein (6.4-8.2) g/dL Albumin (3.4-5.0) g/dL Globulin Albumin/Globulin Ratio Influenza Type A RNA (NEGATIVE) Influenza Type B RNA (NEGATIVE) SARS-CoV-2 RNA (PHAN) (NEGATIVE) 10/24/21 10/24/21 10/24/21 Range/Units 03:05 04:20 07:58 WBC (5.0-10.0) 10^3/uL RBC (4.2-5.4) 10^6/uL Hgb (12.0-16.0) g/dL Hct (37.0-47.0) % MCV (80-100) fL MCH (27.0-34.0) pg MCHC (33.0-35.0) g/dL Plt Count (150-450) 10^3/uL Neut % (Auto) (42.2-75.2) % Lymph % (Auto) (20.5-50.1) % [place] % (Auto) (2-8) % Eos % (Auto) (1.0-3.0) % Baso % (Auto) (0.0-1.0) % APTT 23.9 (22.0-34.0) SEC D-Dimer, Quantitative (0-400) ng/mL Sodium (136-145) mmol/L Potassium (3.5-5.1) mmol/L Chloride (98-107) mmol/L Carbon Dioxide (21-32) mmol/L Anion Gap (7-13) mEq/L BUN (7-18) mg/dL Creatinine (0.55-1.02) mg/dL Est Cr Clr Drug Dosing mL/min Estimated GFR (MDRD) BUN/Creatinine Ratio (No establ ref range) Glucose (70-99) mg/dL Lactic Acid 0.8 (0.4-2.0) mmol/L Calcium (8.5-10.1) mg/dL Total Bilirubin (0.2-1.0) mg/dL AST (15-37) U/L ALT (14-59) U/L Alkaline Phosphatase (46-116) U/L Troponin I High Sens 81 H* (<=51) pg/mL B-Natriuretic Peptide (0-100) pg/ml Total Protein (6.4-8.2) g/dL Albumin (3.4-5.0) g/dL Globulin Albumin/Globulin Ratio Influenza Type A RNA (NEGATIVE) Influenza Type B RNA (NEGATIVE) SARS-CoV-2 RNA (PHAN) (NEGATIVE) Result Diagrams: 10/24/21 03:05 10/24/21 03:05 *Q Meaningful Use (ADM) - VTE *Q VTE Anticoagulation Contraindications: Alternative TX Request PT - Problem List (1) CKD (chronic kidney disease) stage V requiring chronic dialysis SNOMED Code(s): 663906820 ICD Code: N18.6 - END STAGE RENAL DISEASE; Z99.2 - DEPENDENCE ON RENAL DIALYSIS Status: Acute Current Visit: Yes (2) Peritoneal dialysis status SNOMED Code(s): 594314541 ICD Code: Z99.2 - DEPENDENCE ON RENAL DIALYSIS Status: Acute Current Visit: Yes (3) Chest pain SNOMED Code(s): 65428110 ICD Code: R07.9 - CHEST PAIN, UNSPECIFIED Status: Acute Current Visit: Yes Qualifiers: Chest pain type: unspecified Qualified Code(s): R07.9 - Chest pain, unspecified (4) Elevated d-dimer SNOMED Code(s): 307233977 ICD Code: R79.89 - OTHER SPECIFIED ABNORMAL FINDINGS OF BLOOD CHEMISTRY Status: Acute Current Visit: Yes (5) Hypertensive heart disease SNOMED Code(s): 92225977 ICD Code: I11.9 - HYPERTENSIVE HEART DISEASE WITHOUT HEART FAILURE Status: Acute Current Visit: No Qualifiers: Heart failure presence: unspecified whether heart failure present Qualified Code(s): I11.9 - Hypertensive heart disease without heart failure (6) Hypokalemia SNOMED Code(s): 56431183 ICD Code: E87.6 - HYPOKALEMIA Status: Chronic Priority: Medium Current Visit: No Onset Date: 02/14/15 Problem List Initiated/Reviewed/Updated: Yes Orders Last 24hrs: Active Orders 24 hr Category Date Time Status Admission Diagnosis [ADT] Urgent ADT 10/24/21 04:34 Ordered Admission Status [Patient Status] [ADT] Routine ADT 10/24/21 04:54 Active Oxygen Therapy [RC] PRN Care 10/24/21 08:30 Active Peripheral IV Care [RC] . DIRECTED Care 10/24/21 08:31 Active Telemetry Monitoring [Cardiac Monitoring] [RC] 08,20 Care 10/24/21 05:02 Active Up With Assistance [RC] ASDIRECTED Care 10/24/21 05:33 Active VTE/DVT Education [RC] PER UNIT ROUTINE Care 10/24/21 08:30 Active Vital Signs [RC] 08,12,16,20,00,04 Care 10/24/21 05:34 Active Vital Signs [RC] Q4H Care 10/24/21 08:30 Active Clear Liquid Diet [DIET] Diet 10/24/21 Breakfast Active Regular Diet [DIET] Diet 10/24/21 Lunch Active Chest 1V Frontal [CR] Routine Exams 10/24/21 08:26 Taken Venous Doppler Lwr Ext Lt [US] Routine Exams 10/24/21 08:48 Taken BASIC METABOLIC PANEL,BMP [CHEM] AM Lab 10/25/21 05:15 Ordered CBC WITH AUTO DIFF [HEME] AM Lab 10/25/21 05:15 Ordered CULTURE BLOOD [BC] Stat Lab 10/24/21 03:05 Received PTT,PARTIAL THROMBOPLSTIN TIME [COAG] Routine Lab 10/24/21 11:30 Ordered TROPONIN I HIGH SENSITIVITY [CHEM] Routine Lab 10/24/21 08:27 Ordered Acetaminophen [TylenoL] Med 10/24/21 08:30 Active 650 mg PO Q4H PRN Aspirin [Ecotrin] Med 10/24/21 09:00 Active 325 mg PO DAILY Calcium Carbonate/Vitamin D3 [Calcium Carbonate/Vitamin Med 10/25/21 09:00 Active D 1250 MG - 5 MCG] 1 tab PO DAILY Furosemide [Lasix] Med 10/24/21 09:00 Active 160 mg PO BIDDIURETIC Heparin Sodium/0.45% NaCl [Heparin 25,000 Units in 1/2 Med 10/24/21 05:30 Active NS 500 ML] 25,000 units in 500 ml IV TITRATE Ondansetron [Zofran ODT] Med 10/24/21 08:30 Active 4 mg PO Q4H PRN Potassium Chloride [Klor-Con 10] Med 10/25/21 09:00 Active 20 meq PO DAILY Sodium Chloride 0.9% [Saline Flush] Med 10/24/21 09:00 Active 10 ml FLUSH 0900,2100 Sodium Chloride 0.9% [Saline Flush] Med 10/24/21 08:30 Active 10 ml FLUSH ASDIRECTED PRN Temazepam [Restoril] Med 10/24/21 21:00 Active 15 mg PO BEDTIME PRN Vit B Cmplx NO3/Fa/C/Biot/Zinc [Nephplex Rx] Med 10/24/21 09:00 Pending 1 tab PO DAILY atorvaSTATin [Lipitor] Med 10/24/21 21:00 Active 10 mg PO BEDTIME hydrALAZINE [Apresoline] Med 10/24/21 09:00 Active 100 mg PO TID lisinopriL [Prinivil] Med 10/24/21 09:00 Active 40 mg PO DAILY oxyCODONE Med 10/24/21 08:30 Active 5 mg PO Q4H PRN Anticoagulation Contraindications VTE [AST] Per Unit Oth 10/24/21 08:30 Ordered Routine Peripheral IV Insertion Adult [OM.PC] Routine Oth 10/24/21 08:30 Ordered Saline Lock Insert [OM.PC] Routine Oth 10/24/21 08:30 Ordered Code Status [Resuscitation Status] Routine Resus Stat 10/24/21 05:14 Ordered Medication Orders Acetaminophen (Acetaminophen 325 Mg Tab) 650 mg PO Q4H PRN PRN Reason: Pain (Mild 1-3)/fever Aspirin (Aspirin 325 Mg Tab.Ec) 325 mg PO DAILY [facility] Last Admin: 10/24/21 09:46 Dose: 325 mg Documented by: JOHN Atorvastatin Calcium (Atorvastatin 10 Mg Tab) 10 mg PO BEDTIME [facility] Calcium Carbonate (Calcium Carbonate/Vitamin D3 1250 Mg-5 Mcg Tab) 1 tab PO DAILY [facility] Furosemide (Furosemide 80 Mg Tab) 160 mg PO BIDDIURETIC [facility] Last Admin: 10/24/21 09:46 Dose: 160 mg Documented by: JOHN Hydralazine HCl (Hydralazine 25 Mg Tab) 100 mg PO TID [facility] Last Admin: 10/24/21 09:45 Dose: 100 mg Documented by: JOHN Heparin Sodium/Sodium Chloride (Heparin 25,000 Units In 1/2 Ns 500 Ml) 25,000 units in 500 mls @ 24 mls/hr IV TITRATE [facility]; Protocol Last Admin: 10/24/21 05:42 Dose: 18 units/kg/hr, 24.331 mls/hr Documented by: JENIFER Cosigned by: DONNY Lisinopril (Lisinopril 20 Mg Tab) 40 mg PO DAILY [facility] Last Admin: 10/24/21 09:46 Dose: 40 mg Documented by: JOHN Non-Formulary Medication (Vit B Cmplx No3/Fa/C/Biot/Zinc [Nephplex Rx]) 1 tab PO DAILY [facility] Ondansetron HCl (Ondansetron 4 Mg Tab.Dis) 4 mg PO Q4H PRN PRN Reason: nausea, able to take PO Oxycodone HCl (Oxycodone 5 Mg Tab) 5 mg PO Q4H PRN PRN Reason: Pain (moderate 4-6) Potassium Chloride (Potassium Chloride 10 Meq Tab.Er) 20 meq PO DAILY [facility] Sodium Chloride (Sodium Chloride 0.9% 10 Ml Syringe) 10 ml FLUSH 0900,2100 FAVIAN Last Admin: 10/24/21 09:49 Dose: 10 ml Documented by: JOHN Sodium Chloride (Sodium Chloride 0.9% 10 Ml Syringe) 10 ml FLUSH ASDIRECTED PRN PRN Reason: Keep Vein Open Temazepam (Temazepam 15 Mg Cap) 15 mg PO BEDTIME PRN PRN Reason: Sleep Assessment/Plan Comment:: 66 yo presented with chest pain chest pain will evaluate with telemetry, repeat troponins possibly GI - GErd cause - given maalox, add protonix elevated dimer - will not risk ct with contrast - PE is less likely with good sats - will obtain LE us r/o dvt htn cont lisinopril, hydralazine cad cont asa, lipitor, lisinopril ESRD on PD will resume PD with the help of the family family will bring in supplies elevated lactic aci level repeat is normalized no apparent infection stop ceftriaxone dvt prophylaxis sq heparin
[2021-10-24] MEDS ORDERED: Potassium Chloride 10 MEQ Tab.ER PO ONE ×2 (10:45)
[2021-10-24] MEDS ORDERED: Pantoprazole 40 MG Tab.CR PO SCH (11:00)
[2021-10-24 12:07] VITALS: PULSE 80
--- NOTE | 2021-10-24 13:52 | US ---
EXAMINATION: Venous Doppler Lwr Ext Lt SEX: Female AGE: 66 years CLINICAL HISTORY: 66-year-old female at bed rest with left lower extremity swelling (edema) and elevated serum D dimer. Rule out DVT. Interpretation: Negative exam. Interpretation: No sign of intraluminal echogenic thrombus and normal compressibility deep veins of the left thigh, knee and calf. Satisfactory augmentation venous waveforms demonstrated respectively in the anterior/posterior tibial and peroneal veins of the left calf, popliteal vein behind the left knee, and proximally in the femoral veins of the left thigh and groin. Patent superficial saphenous vein. No sign of popliteal or Echevarria's cyst behind the left knee.
[2021-10-24] MEDS ORDERED: Heparin Sodium 5,000 Units/ML Vial SUBCUT SCH (14:00)
--- NOTE | 2021-10-24 14:49 | PCM.DCSUM1 ---
Discharge Summary - Hospital Course Free Text/Narrative:: 66 yo presented with chest pain, started at rest, overnight no recurrence since admission no sob chest pain no arrythmia on telemetry, stable troponins- minimal trop elevation is likely due to renal failure possibly GI - GErd cause - given maalox, add protonix elevated dimer - LE us negative for dvt htn cont lisinopril, hydralazine cad cont asa, lipitor, lisinopril ESRD on PD will resume PD with the help of the family elevated lactic aci level repeat is normalized no apparent infection Diagnosis: Stroke: No - Discharge Data Discharge Date: 10/24/21 Discharge Disposition: Home, Self-Care 01 Condition: Good - Referral to Home Health Primary Care Physician: PCP None - Discharge Diagnosis/Problem(s) (1) CKD (chronic kidney disease) stage V requiring chronic dialysis SNOMED Code(s): 917736535 ICD Code: N18.6 - END STAGE RENAL DISEASE; Z99.2 - DEPENDENCE ON RENAL DIALYSIS Status: Acute Current Visit: Yes (2) Peritoneal dialysis status SNOMED Code(s): 324738864 ICD Code: Z99.2 - DEPENDENCE ON RENAL DIALYSIS Status: Acute Current Visit: Yes (3) Chest pain SNOMED Code(s): 45226174 ICD Code: R07.9 - CHEST PAIN, UNSPECIFIED Status: Acute Current Visit: Yes Qualifiers: Chest pain type: unspecified Qualified Code(s): R07.9 - Chest pain, unsp ecified (4) Elevated d-dimer SNOMED Code(s): 181432705 ICD Code: R79.89 - OTHER SPECIFIED ABNORMAL FINDINGS OF BLOOD CHEMISTRY Status: Acute Current Visit: Yes (5) Hypertensive heart disease SNOMED Code(s): 40774705 ICD Code: I11.9 - HYPERTENSIVE HEART DISEASE WITHOUT HEART FAILURE Status: Acute Current Visit: No Qualifiers: Heart failure presence: unspecified whether heart failure present Qualified Code(s): I11.9 - Hypertensive heart disease without heart failure (6) Hypokalemia SNOMED Code(s): 09677092 ICD Code: E87.6 - HYPOKALEMIA Status: Chronic Priority: Medium Current Visit: No Onset Date: 02/14/15 - Patient Instructions Diet: Heart Healthy Diet, Renal Diet Activity: As Tolerated - Discharge Plan *PRESCRIPTION DRUG MONITORING PROGRAM REVIEWED*: Not Applicable *COPY OF PRESCRIPTION DRUG MONITORING REPORT IN PATIENT DANA: Not Applicable Prescriptions/Med Rec: Pantoprazole [ProTONIX] 40 mg PO ACBREAKFAST #3 tab.cr Home Medications: Home Meds atorvaSTATin [Lipitor] 10 mg PO BEDTIME 07/26/18 [History] Vit B Cmplx NO3/Fa/C/Biot/Zinc [Nephplex Rx] 1 tab PO DAILY 06/30/21 [History] hydrALAZINE [Apresoline] 100 mg PO TID 06/30/21 [History] lisinopriL [Lisinopril] 40 mg PO DAILY 06/30/21 [History] Aspirin [Ecotrin EC] 325 mg PO DAILY 10/24/21 [History] Calcium Citrate/Vitamin D3 [Calcium Citrate - Vit D Tablet] 1 tab PO DAILY 10/24/21 [History] Furosemide [Lasix] 160 mg PO BID 10/24/21 [History] Pantoprazole [ProTONIX] 40 mg PO ACBREAKFAST #3 tab.cr 10/24/21 [Rx] Potassium Chloride [Klor-Con] 20 meq PO DAILY 10/24/21 [History] Oxygen Therapy Mode: Room Air Referrals: Juan Francisco Lacey MD [Ordering Only Provider] - - Discharge Summary/Plan Comment DC Time >30 min.: No Total # of Minutes for Discharge Time: 20 min - General Info Date of Service: 10/24/21 Admission Dx/Problem (Free Text: Admission Diagnosis/Problem Admission Diagnosis/Problem Chest pain Functional Status: Reports: Pain Controlled - Review of Systems Pulmonary: Denies: Shortness of Breath Cardiovascular: Denies: Chest Pain, Edema Genitourinary: Denies: Dysuria Neurological: Denies: Confusion - Patient Data Vitals - Most Recent: Last Vital Signs Temp 99.1 F 10/24/21 13:00 Pulse 80 10/24/21 13:00 Resp 18 10/24/21 13:00 BP 120/50 L 10/24/21 13:00 Pulse Ox 96 10/24/21 13:00 Weight - Most Recent: 149 lb I&O - Last 24 hours: Intake & Output 10/23/21 10/24/21 10/24/21 22:59 06:59 14:59 Intake Total 300 Output Total 0 Balance 300 Lab Results - Last 24 hrs: Laboratory Results - last 24 hr 10/24/21 10/24/21 10/24/21 Range/Units 03:00 03:05 03:05 WBC 5.4 (5.0-10.0) 10^3/uL RBC 3.08 L (4.2-5.4) 10^6/uL Hgb 10.3 L D (12.0-16.0) g/dL Hct 31.5 L (37.0-47.0) % MCV 102.3 H (80-100) fL MCH 33.4 (27.0-34.0) pg MCHC 32.7 L (33.0-35.0) g/dL Plt Count 215 D (150-450) 10^3/uL Neut % (Auto) 73.4 (42.2-75.2) % Lymph % (Auto) 19.2 L (20.5-50.1) % [place] % (Auto) 7.2 (2-8) % Eos % (Auto) 0.0 L (1.0-3.0) % Baso % (Auto) 0.2 (0.0-1.0) % APTT (22.0-34.0) SEC D-Dimer, Quantitative (0-400) ng/mL Sodium 140 (136-145) mmol/L Potassium 2.8 L (3.5-5.1) mmol/L Chloride 99 (98-107) mmol/L Carbon Dioxide 22 (21-32) mmol/L Anion Gap 21.8 H (7-13) mEq/L BUN 41 H (7-18) mg/dL Creatinine 5.48 H* (0.55-1.02) mg/dL Est Cr Clr Drug Dosing 8.24 mL/min Estimated GFR (MDRD) 8 BUN/Creatinine Ratio 7.5 (No establ ref range) Glucose 170 H (70-99) mg/dL Lactic Acid (0.4-2.0) mmol/L Calcium 8.4 L (8.5-10.1) mg/dL Total Bilirubin 0.4 (0.2-1.0) mg/dL AST 13 L (15-37) U/L ALT 14 (14-59) U/L Alkaline Phosphatase 106 (46-116) U/L Troponin I High Sens 86 H* (<=51) pg/mL B-Natriuretic Peptide (0-100) pg/ml Total Protein 7.6 (6.4-8.2) g/dL Albumin 2.8 L (3.4-5.0) g/dL Globulin 4.8 Albumin/Globulin Ratio 0.58 Influenza Type A RNA Negative (NEGATIVE) Influenza Type B RNA Negative (NEGATIVE) SARS-CoV-2 RNA (PHAN) Negative (NEGATIVE) 10/24/21 10/24/21 10/24/21 Range/Units 03:05 03:05 03:05 WBC (5.0-10.0) 10^3/uL RBC (4.2-5.4) 10^6/uL Hgb (12.0-16.0) g/dL Hct (37.0-47.0) % MCV (80-100) fL MCH (27.0-34.0) pg MCHC (33.0-35.0) g/dL Plt Count (150-450) 10^3/uL Neut % (Auto) (42.2-75.2) % Lymph % (Auto) (20.5-50.1) % [place] % (Auto) (2-8) % Eos % (Auto) (1.0-3.0) % Baso % (Auto) (0.0-1.0) % APTT (22.0-34.0) SEC D-Dimer, Quantitative 1450 H (0-400) ng/mL Sodium (136-145) mmol/L Potassium (3.5-5.1) mmol/L Chloride (98-107) mmol/L Carbon Dioxide (21-32) mmol/L Anion Gap (7-13) mEq/L BUN (7-18) mg/dL Creatinine (0.55-1.02) mg/dL Est Cr Clr Drug Dosing mL/min Estimated GFR (MDRD) BUN/Creatinine Ratio (No establ ref range) Glucose (70-99) mg/dL Lactic Acid 3.8 H* (0.4-2.0) mmol/L Calcium (8.5-10.1) mg/dL Total Bilirubin (0.2-1.0) mg/dL AST (15-37) U/L ALT (14-59) U/L Alkaline Phosphatase (46-116) U/L Troponin I High Sens (<=51) pg/mL B-Natriuretic Peptide 281 H (0-100) pg/ml Total Protein (6.4-8.2) g/dL Albumin (3.4-5.0) g/dL Globulin Albumin/Globulin Ratio Influenza Type A RNA (NEGATIVE) Influenza Type B RNA (NEGATIVE) SARS-CoV-2 RNA (PHAN) (NEGATIVE) 10/24/21 10/24/21 10/24/21 Range/Units 03:05 04:20 07:58 WBC (5.0-10.0) 10^3/uL RBC (4.2-5.4) 10^6/uL Hgb (12.0-16.0) g/dL Hct (37.0-47.0) % MCV (80-100) fL MCH (27.0-34.0) pg MCHC (33.0-35.0) g/dL Plt Count (150-450) 10^3/uL Neut % (Auto) (42.2-75.2) % Lymph % (Auto) (20.5-50.1) % [place] % (Auto) (2-8) % Eos % (Auto) (1.0-3.0) % Baso % (Auto) (0.0-1.0) % APTT 23.9 (22.0-34.0) SEC D-Dimer, Quantitative (0-400) ng/mL Sodium (136-145) mmol/L Potassium (3.5-5.1) mmol/L Chloride (98-107) mmol/L Carbon Dioxide (21-32) mmol/L Anion Gap (7-13) mEq/L BUN (7-18) mg/dL Creatinine (0.55-1.02) mg/dL Est Cr Clr Drug Dosing mL/min Estimated GFR (MDRD) BUN/Creatinine Ratio (No establ ref range) Glucose (70-99) mg/dL Lactic Acid 0.8 (0.4-2.0) mmol/L Calcium (8.5-10.1) mg/dL Total Bilirubin (0.2-1.0) mg/dL AST (15-37) U/L ALT (14-59) U/L Alkaline Phosphatase (46-116) U/L Troponin I High Sens 81 H* (<=51) pg/mL B-Natriuretic Peptide (0-100) pg/ml Total Protein (6.4-8.2) g/dL Albumin (3.4-5.0) g/dL Globulin Albumin/Globulin Ratio Influenza Type A RNA (NEGATIVE) Influenza Type B RNA (NEGATIVE) SARS-CoV-2 RNA (PHAN) (NEGATIVE) 10/24/21 10/24/21 Range/Units 11:30 11:30 WBC (5.0-10.0) 10^3/uL RBC (4.2-5.4) 10^6/uL Hgb (12.0-16.0) g/dL Hct (37.0-47.0) % MCV (80-100) fL MCH (27.0-34.0) pg MCHC (33.0-35.0) g/dL Plt Count (150-450) 10^3/uL Neut % (Auto) (42.2-75.2) % Lymph % (Auto) (20.5-50.1) % [place] % (Auto) (2-8) % Eos % (Auto) (1.0-3.0) % Baso % (Auto) (0.0-1.0) % APTT 70.6 H (22.0-34.0) SEC D-Dimer, Quantitative (0-400) ng/mL Sodium (136-145) mmol/L Potassium (3.5-5.1) mmol/L Chloride (98-107) mmol/L Carbon Dioxide (21-32) mmol/L Anion Gap (7-13) mEq/L BUN (7-18) mg/dL Creatinine (0.55-1.02) mg/dL Est Cr Clr Drug Dosing mL/min Estimated GFR (MDRD) BUN/Creatinine Ratio (No establ ref range) Glucose (70-99) mg/dL Lactic Acid (0.4-2.0) mmol/L Calcium (8.5-10.1) mg/dL Total Bilirubin (0.2-1.0) mg/dL AST (15-37) U/L ALT (14-59) U/L Alkaline Phosphatase (46-116) U/L Troponin I High Sens 72 H* (<=51) pg/mL B-Natriuretic Peptide (0-100) pg/ml Total Protein (6.4-8.2) g/dL Albumin (3.4-5.0) g/dL Globulin Albumin/Globulin Ratio Influenza Type A RNA (NEGATIVE) Influenza Type B RNA (NEGATIVE) SARS-CoV-2 RNA (PHAN) (NEGATIVE) Med Orders - Current: Current Medications Acetaminophen (Acetaminophen 325 Mg Tab) 650 mg PO Q4H PRN PRN Reason: Pain (Mild 1-3)/fever Aspirin (Aspirin 325 Mg Tab.Ec) 325 mg PO DAILY [facility] Last Admin: 10/24/21 09:46 Dose: 325 mg Documented by: Atorvastatin Calcium (Atorvastatin 10 Mg Tab) 10 mg PO BEDTIME [facility] Calcium Carbonate (Calcium Carbonate/Vitamin D3 1250 Mg-5 Mcg Tab) 1 tab PO DAILY [facility] Furosemide (Furosemide 80 Mg Tab) 160 mg PO BIDDIURETIC [facility] Last Admin: 10/24/21 09:46 Dose: 160 mg Documented by: Heparin Sodium (Porcine) (Heparin Sodium 5,000 Units/Ml Vial) 5,000 units SUBCUT Q8HR [facility] Hydralazine HCl (Hydralazine 25 Mg Tab) 100 mg PO TID [facility] Last Admin: 10/24/21 09:45 Dose: 100 mg Documented by: Lisinopril (Lisinopril 20 Mg Tab) 40 mg PO DAILY [facility] Last Admin: 10/24/21 09:46 Dose: 40 mg Documented by: Non-Formulary Medication (Vit B Cmplx No3/Fa/C/Biot/Zinc [Nephplex Rx]) 1 tab PO DAILY [facility] Ondansetron HCl (Ondansetron 4 Mg Tab.Dis) 4 mg PO Q4H PRN PRN Reason: nausea, able to take PO Oxycodone HCl (Oxycodone 5 Mg Tab) 5 mg PO Q4H PRN PRN Reason: Pain (moderate 4-6) Pantoprazole Sodium (Pantoprazole 40 Mg Tab.Cr) 40 mg PO ACBREAKFAST [facility] Last Admin: 10/24/21 11:55 Dose: 40 mg Documented by: Potassium Chloride (Potassium Chloride 10 Meq Tab.Er) 20 meq PO DAILY [facility] Sodium Chloride (Sodium Chloride 0.9% 10 Ml Syringe) 10 ml FLUSH 0900,2100 [facility] Last Admin: 10/24/21 09:49 Dose: 10 ml Documented by: Sodium Chloride (Sodium Chloride 0.9% 10 Ml Syringe) 10 ml FLUSH ASDIRECTED PRN PRN Reason: Keep Vein Open Temazepam (Temazepam 15 Mg Cap) 15 mg PO BEDTIME PRN PRN Reason: Sleep Discontinued Medications Ceftriaxone Sodium 1 gm/ (Sodium Chloride) 50 mls @ 100 mls/hr IV ONETIME ONE Stop: 10/24/21 05:26 Last Admin: 10/24/21 05:24 Dose: 100 mls/hr Documented by: Heparin Sodium/Sodium Chloride (Heparin 25,000 Units In 1/2 Ns 500 Ml) 25,000 units in 500 mls @ 24 mls/hr IV TITRATE FAVIAN; Protocol Last Admin: 10/24/21 05:42 Dose: 18 units/kg/hr, 24.331 mls/hr Documented by: Potassium Chloride (Potassium Chloride 10 Meq Tab.Er) 40 meq PO ONETIME ONE Stop: 10/24/21 10:46 Last Admin: 10/24/21 13:22 Dose: Not Given Documented by: Potassium Chloride (Potassium Chloride 10 Meq Tab.Er) 20 meq PO ONETIME ONE Stop: 10/24/21 10:46 Last Admin: 10/24/21 11:59 Dose: 20 meq Documented by: - Exam Quality Assessment: Denies: Supplemental Oxygen General: Reports: Alert, Oriented Neck: Reports: Supple Lungs: Reports: Clear to Auscultation, Normal Respiratory Effort Cardiovascular: Reports: Regular Rate, Regular Rhythm GI/Abdominal Exam: Normal Bowel Sounds, Soft, Non-Tender Extremities: Other (s/p r. amputation , no edema left side) Skin: Reports: Warm, Dry Neurological: Reports: No New Focal Deficit Psy/Mental Status: Reports: Alert, Normal Affect, Normal Mood *Q Meaningful Use (DIS) - VTE *Q VTE Anticoagulation Contraindications: Alternative [place] Request PT
[2021-10-24 15:40] VITALS: BP 146/57
--- NOTE | 2021-10-24 16:14 | CR ---
PROCEDURE INFORMATION: Exam: XR Chest Exam date and time: 10/24/2021 8:55 AM Age: 66 years old Clinical indication: Shortness of breath; Additional info: SOB TECHNIQUE: Imaging protocol: XR of the chest. Views: 1 view. COMPARISON: CR Chest 2V 06/20/2021 9:03 AM FINDINGS: Lungs: Unremarkable. No consolidation. Pleural spaces: Unremarkable. No pleural effusion. No pneumothorax. Heart/Mediastinum: Unremarkable. No cardiomegaly. Bones/joints: Unremarkable. IMPRESSION: No acute findings.
[2021-10-24] MEDS ORDERED: atorvaSTATin 10 MG Tab PO SCH (21:00)
[2021-10-24] MEDS ORDERED: Temazepam 15 MG Cap PO PRN (21:00)
[2021-10-25] MEDS ORDERED: Potassium Chloride 10 MEQ Tab.ER PO SCH (09:00)
[2021-10-25] MEDS ORDERED: Calcium Carbonate/Vitamin D3 1250 MG-5 MCG Tab PO SCH (09:00)
== END 2021-10-24 16:55 | disposition home or self-care (01) ==
LOC: DL.ED 02:55 → DL.MS 04:52
PROVIDERS: ADMIT Internal Medicine; ATTEND Internal Medicine
DX: R07.9 Chest pain, unspecified (principal); I10 Essential (primary) hypertension; I25.10 Atherosclerotic heart disease of native coronary artery without angina pectoris; I12.0 Hypertensive chronic kidney disease with stage 5 chronic kidney disease or end stage renal disease; N18.6 End stage renal disease; E11.22 Type 2 diabetes mellitus with diabetic chronic kidney disease; E87.6 Hypokalemia; E66.9 Obesity, unspecified; Z79.899 Other long term (current) drug therapy; Z79.82 Long term (current) use of aspirin; Z99.2 Dependence on renal dialysis; Z20.822 Contact with and (suspected) exposure to COVID-19
CPT/HCPCS: 0240U; 36415; 71045; 80053; 83605; 83880; 84484; 85025; 85379; 85730; 87040; 93005; 93971; 96365; 96366; 96376; 99285; A9270; G0378; J0696; J1644

== ENCOUNTER 2021-11-04 21:32 | Emergency (ER) | payer MEDICARE, MEDICAID ==
[2021-11-04 21:39] VITALS: BP 165/78; PULSE 92
[2021-11-04 23:31] LABS: ANION GAP 20.5 mEq/L (7-13)
[2021-11-04] MEDS ORDERED: Acetaminophen 325 MG Tab PO ONE (23:36)
[2021-11-04] MEDS ORDERED: Famotidine 20 MG/2 ML SDV IVPUSH ONE (23:36)
[2021-11-05] MEDS ORDERED: Famotidine 20 MG Tab PO ONE (00:38)
--- NOTE | 2021-11-05 00:46 | EDM.PDOC ---
ED HPI GENERAL MEDICAL PROBLEM - General Chief Complaint: Abdominal Pain Stated Complaint: AMBULANCE Time Seen by Provider: 11/04/21 21:40 Source of Information: Reports: Patient History Limitations: Reports: No Limitations - History of Present Illness INITIAL COMMENTS - FREE TEXT/NARRATIVE: ED via EMS with c/o RUQ started around 8pm, last meal 6pm- potatoe soup. Brief episode short of breath, no chest pain. Pain absent at time of arrival. No fever, No urinary sx. BM today. No fever or chills. Peritoneal dialysis. 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 - Related Data Allergies Allergy/AdvReac Type Severity Reaction Status Date / Time No Known Allergies Allergy Verified 11/04/21 21:41 Home Meds: Home Meds atorvaSTATin [Lipitor] 10 mg PO BEDTIME 07/26/18 [History] Vit B Cmplx NO3/Fa/C/Biot/Zinc [Nephplex Rx] 1 tab PO DAILY 06/30/21 [History] hydrALAZINE [Apresoline] 100 mg PO TID 06/30/21 [History] lisinopriL [Lisinopril] 40 mg PO DAILY 06/30/21 [History] Aspirin [Ecotrin EC] 325 mg PO DAILY 10/24/21 [History] Calcium Citrate/Vitamin D3 [Calcium Citrate - Vit D Tablet] 1 tab PO DAILY 10/24/21 [History] Furosemide [Lasix] 160 mg PO BID 10/24/21 [History] Potassium Chloride [Klor-Con] 20 meq PO DAILY 10/24/21 [History] Past Medical History HEENT History: Reports: Impaired Vision Other HEENT History: wears glasses Cardiovascular History: Reports: CAD, Hypertension Respiratory History: Reports: Bronchitis, Recurrent, Other (See Below) Other Respiratory History: COVID fall 2019 Gastrointestinal History: Reports: None Genitourinary History: Reports: Dialysis, Peritoneal, Renal Disease 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, 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 Musculoskeletal History: Reports: Arthritis Other Musculoskeletal History: right below the knee amputation Neurological History: Reports: None Psychiatric History: Reports: None Endocrine/Metabolic History: Reports: Diabetes, Type II, Obesity/BMI 30+ Hematologic History: Reports: None Immunologic History: Reports: None Oncologic (Cancer) History: Reports: None Dermatologic History: Reports: None - Infectious Disease History Infectious Disease History: Reports: Chicken Pox, Novel Coronavirus Other Infectious Disease History: Covid in August 2020 - Past Surgical History Head Surgeries/Procedures: Reports: None HEENT Surgical History: Reports: Cataract Surgery Cardiovascular Surgical History: Reports: None Respiratory Surgical History: Reports: None GI Surgical History: Reports: Appendectomy, Cholecystectomy Female Surgical History: Reports: None Endocrine Surgical History: Reports: None Neurological Surgical History: Reports: None Musculoskeletal Surgical History: Reports: Amputation, Other (See Below) Other Musculoskeletal Surgeries/Procedures:: right side hip fx with pins Oncologic Surgical History: Reports: None Dermatological Surgical History: Reports: None Social & Family History - Family History Family Medical History: No Pertinent Family History - Tobacco Use Tobacco Use Status *Q: Never Tobacco User - Caffeine Use Caffeine Use: Reports: None - Recreational Drug Use Recreational Drug Use: No - Living Situation & Occupation Living situation: Reports: with Family Occupation: Disabled ED ROS GENERAL - Review of Systems Review Of Systems: Comprehensive ROS is negative, except as noted in HPI. ED EXAM, GI/ABD - Physical Exam Exam: See Below Exam Limited By: No Limitations General Appearance: Alert, No Apparent Distress Eyes: Bilateral: EOMI Ears: Normal External Exam, Hearing Loss (mild) Nose: Normal Inspection Throat/Mouth: Normal Inspection Head: Atraumatic, Normocephalic Neck: Normal Inspection Respiratory/Chest: No Respiratory Distress, Lungs Clear, Normal Breath Sounds Cardiovascular: Normal Peripheral Pulses, Regular Rate, Rhythm GI/Abdominal Exam: Normal Bowel Sounds, Soft, Tender (mild epigastric), Other (peritoneal dilaysisport dressing CDI, so redenss, no distension to abdomen). No: Distended, Guarding, Rigid Back Exam: Full Range of Motion Neurological: Alert, Oriented, Normal Cognition Psychiatric: Anxious (mild) Skin Exam: Warm, Dry, Intact, Normal Color Course - Vital Signs Last Recorded V/S: Last Vital Signs Temp 98 F 11/04/21 21:33 Pulse 92 11/04/21 21:33 Resp 20 11/04/21 21:33 BP 165/78 H 11/04/21 21:33 Pulse Ox 97 11/04/21 21:33 - Orders/Labs/Meds Labs: Laboratory Tests 11/04/21 11/04/21 11/04/21 Range/Units 23:10 23:10 23:10 WBC 6.6 (5.0-10.0) 10^3/uL RBC 3.26 L (4.2-5.4) 10^6/uL Hgb 10.7 L (12.0-16.0) g/dL Hct 35.2 L (37.0-47.0) % MCV 108.0 H D (80-100) fL MCH 32.8 (27.0-34.0) pg MCHC 30.4 L (33.0-35.0) g/dL Plt Count 246 (150-450) 10^3/uL Neut % (Auto) 66.7 (42.2-75.2) % Lymph % (Auto) 22.4 (20.5-50.1) % [place] % (Auto) 8.3 H (2-8) % Eos % (Auto) 2.3 (1.0-3.0) % Baso % (Auto) 0.3 (0.0-1.0) % Sodium 139 (136-145) mmol/L Potassium 5.5 H D (3.5-5.1) mmol/L Chloride 102 (98-107) mmol/L Carbon Dioxide 22 (21-32) mmol/L Anion Gap 20.5 H (7-13) mEq/L BUN 45 H (7-18) mg/dL Creatinine 6.00 H* (0.55-1.02) mg/dL Est Cr Clr Drug Dosing 7.53 mL/min Estimated GFR (MDRD) 7 BUN/Creatinine Ratio 7.5 (No establ ref range) Glucose 123 H (70-99) mg/dL Lactic Acid 0.6 (0.4-2.0) mmol/L Calcium 8.1 L (8.5-10.1) mg/dL Total Bilirubin 0.3 (0.2-1.0) mg/dL AST 14 L (15-37) U/L ALT 16 (14-59) U/L Alkaline Phosphatase 174 H (46-116) U/L Troponin I High Sens (<=51) pg/mL B-Natriuretic Peptide 97 (0-100) pg/ml Total Protein 7.1 (6.4-8.2) g/dL Albumin 2.8 L (3.4-5.0) g/dL Globulin 4.3 Albumin/Globulin Ratio 0.65 Urine Color (YELLOW) Urine Appearance (CLEAR) Urine pH (5.0-9.0) Ur Specific [place] (1.005-1.030) Urine Protein (NEGATIVE) Urine Glucose (UA) (NEGATIVE) Urine Ketones (NEGATIVE) Urine Occult Blood (NEGATIVE) Urine Nitrite (NEGATIVE) Urine Bilirubin (NEGATIVE) Urine Urobilinogen (0.2-1.0) mg/dL Ur Leukocyte Esterase (NEGATIVE) Urine RBC (0-5) /HPF Urine WBC (0-5/HPF) /HPF Ur Epithelial Cells (NOT SEEN) /HPF Urine Bacteria (0-FEW/HPF) /HPF 11/04/21 11/05/21 Range/Units 23:10 00:13 WBC (5.0-10.0) 10^3/uL RBC (4.2-5.4) 10^6/uL Hgb (12.0-16.0) g/dL Hct (37.0-47.0) % MCV (80-100) fL MCH (27.0-34.0) pg MCHC (33.0-35.0) g/dL Plt Count (150-450) 10^3/uL Neut % (Auto) (42.2-75.2) % Lymph % (Auto) (20.5-50.1) % [place] % (Auto) (2-8) % Eos % (Auto) (1.0-3.0) % Baso % (Auto) (0.0-1.0) % Sodium (136-145) mmol/L Potassium (3.5-5.1) mmol/L Chloride (98-107) mmol/L Carbon Dioxide (21-32) mmol/L Anion Gap (7-13) mEq/L BUN (7-18) mg/dL Creatinine (0.55-1.02) mg/dL Est Cr Clr Drug Dosing mL/min Estimated GFR (MDRD) BUN/Creatinine Ratio (No establ ref range) Glucose (70-99) mg/dL Lactic Acid (0.4-2.0) mmol/L Calcium (8.5-10.1) mg/dL Total Bilirubin (0.2-1.0) mg/dL AST (15-37) U/L ALT (14-59) U/L Alkaline Phosphatase (46-116) U/L Troponin I High Sens 68 H* (<=51) pg/mL B-Natriuretic Peptide (0-100) pg/ml Total Protein (6.4-8.2) g/dL Albumin (3.4-5.0) g/dL Globulin Albumin/Globulin Ratio Urine Color Yellow (YELLOW) Urine Appearance Clear (CLEAR) Urine pH >= 9.0 (5.0-9.0) Ur Specific [place] 1.020 (1.005-1.030) Urine Protein >=300 H (NEGATIVE) Urine Glucose (UA) Negative (NEGATIVE) Urine Ketones Negative (NEGATIVE) Urine Occult Blood Negative (NEGATIVE) Urine Nitrite Negative (NEGATIVE) Urine Bilirubin Negative (NEGATIVE) Urine Urobilinogen 0.2 (0.2-1.0) mg/dL Ur Leukocyte Esterase Negative (NEGATIVE) Urine RBC Not seen (0-5) /HPF Urine WBC 20-30 H (0-5/HPF) /HPF Ur Epithelial Cells Moderate H (NOT SEEN) /HPF Urine Bacteria Moderate H (0-FEW/HPF) /HPF Meds: Medications Discontinued Medications Generic Name Dose Route Start Last Admin Trade Name Camila PRN Reason Stop Dose Admin Acetaminophen 650 mg 11/04/21 23:36 11/05/21 00:50 Acetaminophen 325 Mg Tab PO 11/04/21 23:37 650 mg NOW ONE Administration Famotidine 20 mg 11/04/21 23:36 Famotidine 20 Mg/2 Ml Sdv IVPUSH 11/04/21 23:37 ONETIME ONE Famotidine 20 mg 11/05/21 00:38 11/05/21 00:50 Famotidine 20 Mg Tab PO 11/05/21 00:39 20 mg ONETIME ONE Administration Departure - Departure Time of Disposition: 21:40 Disposition: Home, Self-Care 01 Condition: Good Clinical Impression: Mild acid reflux, Chest wall pain, Peritoneal dialysis status - Discharge Information *PRESCRIPTION DRUG MONITORING PROGRAM REVIEWED*: No *COPY OF PRESCRIPTION DRUG MONITORING REPORT IN PATIENT DANA: No Instructions: Food Choices for Gastroesophageal Reflux Disease, Adult, Nonspecific Chest Pain, Adult Referrals: Dick Crawford [Primary Care Provider] - Forms: ED Department Discharge Additional Instructions: tyleno 500mg every 4 hours as needed for discomfort bland low fat diet omeprazole 20mg daily clinic follow up with primary care this week Sepsis Event Note (ED) - Evaluation Sepsis Screening Result: No Definite Risk
== END 2021-11-05 01:00 | disposition home or self-care (01) ==
LOC: DL.ED 21:32
DX: R07.89 Other chest pain (principal); K21.9 Gastro-esophageal reflux disease without esophagitis; I25.10 Atherosclerotic heart disease of native coronary artery without angina pectoris; I10 Essential (primary) hypertension; E11.9 Type 2 diabetes mellitus without complications; E66.9 Obesity, unspecified; Z68.30 Body mass index [BMI] 30.0-30.9, adult; Z79.82 Long term (current) use of aspirin; Z79.899 Other long term (current) drug therapy; Z99.2 Dependence on renal dialysis
CPT/HCPCS: 36415; 80053; 81001; 83605; 83880; 84484; 85025; 99284; A9270

== ENCOUNTER 2022-02-16 14:50 | Emergency (ER) | payer MEDICARE, MEDICAID ==
[2022-02-16 15:24] VITALS: BP 162/79; PULSE 67
[2022-02-16 16:07] LABS: ANION GAP 19.9 mEq/L (7-13)
[2022-02-16 16:25] LABS: CORONAVIRUS COVID-19 NAA NEGATIVE (NEGATIVE); RESPIRATORY SYNCYTIAL VIR NAA NEGATIVE (NEGATIVE)
[2022-02-16] MEDS ORDERED: Levofloxacin 250 MG Tab PO ONE (16:47)
== END 2022-02-16 17:10 | disposition home or self-care (01) ==
LOC: DL.ED 14:50
DX: J01.90 Acute sinusitis, unspecified (principal); B96.89 Other specified bacterial agents as the cause of diseases classified elsewhere; I10 Essential (primary) hypertension; I25.10 Atherosclerotic heart disease of native coronary artery without angina pectoris; E11.9 Type 2 diabetes mellitus without complications; Z20.822 Contact with and (suspected) exposure to COVID-19; Z79.899 Other long term (current) drug therapy; Z79.82 Long term (current) use of aspirin; Z90.49 Acquired absence of other specified parts of digestive tract
CPT/HCPCS: 0241U; 36415; 71046; 80053; 85025; 99283; A9270

== ENCOUNTER 2022-08-16 13:55 | Emergency (ER) | payer MEDICARE, MEDICAID | END 2022-08-16 15:55 | disposition home or self-care (01) | LOC: DL.ED 13:55 | DX: S80.01XA Contusion of right knee, initial encounter (principal); E11.9 Type 2 diabetes mellitus without complications; W01.0XXA Fall on same level from slipping, tripping and stumbling without subsequent striking against object, initial encounter | CPT/HCPCS: 73560-RT; 99283 ==

== ENCOUNTER 2023-06-17 20:56 | Emergency (ER) | payer MEDICARE, MEDICAID ==
[2023-06-17] MEDS ORDERED: Ondansetron 4 MG/2 ML SDV IVPUSH ONE (21:32)
[2023-06-17 21:50] LABS: BASOPHILS PERCENT AUTO 0.2 % (0.0-1.0); EOSINOPHILS PERCENT AUTO 0.2 % (1.0-3.0); HEMATOCRIT 29.9 % (37.0-47.0); HEMOGLOBIN 10.6 g/dL (12.0-16.0); LYMPHOCYTES PERCENT AUTO 9.8 % (20.5-50.1); MEAN CORPUSCULAR HEMOGLOBIN 31.9 pg (27.0-34.0); MEAN CORPUSCULAR HGB CONC 35.5 g/dL (33.0-35.0); MEAN CORPUSCULAR VOLUME 90.1 fL (80-100); MONOCYTES PERCENT AUTO 3.5 % (2-8); NEUTROPHILS PERCENT AUTO 86.3 % (42.2-75.2); PLATELET COUNT,PLT 215 10^3/uL (150-450); RED BLOOD CELL COUNT 3.32 10^6/uL (4.2-5.4); WHITE BLOOD CELL COUNT,WBC 8.1 10^3/uL (5.0-10.0)
[2023-06-17] MEDS: Sodium Chloride 0.9% 10 ML Syringe FLUSH PRN ×4 (21:56→23:04)
[2023-06-17] MEDS ORDERED: Pantoprazole 40 MG Vial IVPUSH ONE (22:00)
[2023-06-17] MEDS ORDERED: Octreotide 500 MCG in Sodium Chloride 0.9% 250 ML IV SCH (22:00)
[2023-06-17] MEDS ORDERED: Octreotide 100 MCG/ML SDV IVPUSH ONE (22:05)
[2023-06-17 22:15] LABS: A/G RATIO 0.7; ALANINE AMINOTRANSFERASE,ALT 22 U/L (14-59); ALBUMIN 3.4 g/dL (3.4-5.0); ALKALINE PHOSPHATASE 138 U/L (46-116); AMYLASE 9 U/L (25-115); ANION GAP 17.5 mEq/L (7-13); ASPARTATE AMNIOTRANSFERASE,AST 17 U/L (15-37); BILIRUBIN TOTAL 0.5 mg/dL (0.2-1.0); BLOOD UREA NITROGEN,BUN 58 mg/dL (7-18); BUN/CREATININE RATIO 9.2 (No establ ref range); CALCIUM 9.6 mg/dL (8.5-10.1); CARBON DIOXIDE,CO2 27 mmol/L (21-32); CHLORIDE,CL 90 mmol/L (98-107); EST CRCL DRUG DOSING (CG) 6.97 mL/min; GLUCOSE RANDOM 154 mg/dL (70-99); LACTIC ACID 1.3 mmol/L (0.4-2.0); LIPASE 86 U/L (73-393); MAGNESIUM 1.7 mg/dL (1.8-2.4); PHOSPHORUS 2.8 mg/dL (2.6-4.7); POTASSIUM,K 2.5 mmol/L (3.5-5.1); PROTEIN TOTAL,TP 8.4 g/dL (6.4-8.2); SODIUM,NA 132 mmol/L (136-145)
[2023-06-17] MEDS ORDERED: Pantoprazole 40 MG in Sodium Chloride 0.9% 100 ML IV SCH (22:15)
[2023-06-17 22:16] LABS: PTT,PARTIAL THROMBOPLSTIN TIME 24.6 SEC (22.0-34.0)
[2023-06-17 22:24] LABS: ESTIMATED GFR 7 mL/min (>=60)
[2023-06-17 22:25] LABS: C-REACTIVE PROTEIN < 0.2 mg/dL (0.0-0.9)
[2023-06-17] MEDS ORDERED: Potassium Chloride 20 MEQ in Premix Bag 1 BAG IV ONE (22:31)
[2023-06-17 22:55] VITALS: BP 158/86; PULSE 90
== END 2023-06-17 23:50 ==
LOC: DL.ED 20:56
DX: K92.2 Gastrointestinal hemorrhage, unspecified (principal); I12.0 Hypertensive chronic kidney disease with stage 5 chronic kidney disease or end stage renal disease; E11.22 Type 2 diabetes mellitus with diabetic chronic kidney disease; N18.6 End stage renal disease; E87.6 Hypokalemia; R77.8 Other specified abnormalities of plasma proteins; I25.10 Atherosclerotic heart disease of native coronary artery without angina pectoris; M19.90 Unspecified osteoarthritis, unspecified site; E66.9 Obesity, unspecified; Z68.28 Body mass index [BMI] 28.0-28.9, adult; Z99.2 Dependence on renal dialysis; Z86.16 Personal history of COVID-19; Z79.82 Long term (current) use of aspirin; Z79.899 Other long term (current) drug therapy; Z90.49 Acquired absence of other specified parts of digestive tract
CPT/HCPCS: 36415; 71045; 80053; 82150; 82271; 83605; 83690; 83735; 83880; 84100; 84145; 84484; 85025; 85610; 85730; 86140; 86850; 86900; 86901; 93005; 96365; 96367; 96368; 96375; 99285; C9113; J2354; J2405; J3480; J3490; J7050; 93010

== ENCOUNTER 2024-04-03 14:10 | Inpatient (IN) | payer MEDICARE, MEDICAID ==
[2024-04-03 14:41] LABS: BASOPHILS PERCENT AUTO 0.1 % (0.0-1.0); EOSINOPHILS PERCENT AUTO 0.1 % (1.0-3.0); HEMATOCRIT 30.7 % (37.0-47.0); HEMOGLOBIN 10.7 g/dL (12.0-16.0); LYMPHOCYTES PERCENT AUTO 22.4 % (20.5-50.1); MEAN CORPUSCULAR HEMOGLOBIN 32.6 pg (27.0-34.0); MEAN CORPUSCULAR HGB CONC 34.9 g/dL (33.0-35.0); MEAN CORPUSCULAR VOLUME 93.6 fL (80-100); MONOCYTES PERCENT AUTO 5.8 % (2-8); NEUTROPHILS PERCENT AUTO 71.6 % (42.2-75.2); PLATELET COUNT,PLT 229 10^3/uL (150-450); RED BLOOD CELL COUNT 3.28 10^6/uL (4.2-5.4); WHITE BLOOD CELL COUNT,WBC 9.3 10^3/uL (5.0-10.0)
[2024-04-03] MEDS: Sodium Chloride 0.9% 10 ML Syringe FLUSH PRN (14:46)
[2024-04-03] MEDS: Ondansetron 4 MG/2 ML SDV IVPUSH ONE (14:46)
[2024-04-03] MEDS: Sodium Chloride 0.9% 1,000 ML IV ONE (14:46)
[2024-04-03] MEDS: GI Cocktail Oral Solution 30 ML PO ONE (14:46)
[2024-04-03 15:00] LABS: A/G RATIO 0.7; ALBUMIN 3.5 g/dL (3.4-5.0); ANION GAP 18.6 mEq/L (7-13); BILIRUBIN TOTAL 0.8 mg/dL (0.2-1.0); BUN/CREATININE RATIO 7.4 (No establ ref range); CALCIUM 9.8 mg/dL (8.5-10.1); EST CRCL DRUG DOSING (CG) 6.4 mL/min; POTASSIUM,K 2.6 mmol/L (3.5-5.1); PROTEIN TOTAL,TP 8.2 g/dL (6.4-8.2)
[2024-04-03 15:03] LABS: CREATININE 6.77 mg/dL (0.55-1.02)
[2024-04-03 15:38] LABS: APPEARANCE,URINE TURBID (CLEAR); BILIRUBIN,URINE NEGATIVE (NEGATIVE); COLOR,URINE YELLOW (YELLOW); GLUCOSE,URINE 100 (NEGATIVE); KETONES,URINE NEGATIVE (NEGATIVE); LEUKOCYTE ESTERASE,URINE LARGE (NEGATIVE); NITRITE,URINE NEGATIVE (NEGATIVE); OCCULT BLOOD,URINE TRACE-INTACT (NEGATIVE); PROTEIN,URINE 100 (NEGATIVE); UROBILINOGEN,URINE 0.2 mg/dL (0.2-1.0)
[2024-04-03 15:41] LABS: AMPHETAMINES,URINE NEGATIVE (NEGATIVE); BARBITURATES,URINE NEGATIVE (NEGATIVE); BENZODIAZEPINE,URINE NEGATIVE (NEGATIVE); MDMA (ECSTASY), URINE NEGATIVE (NEGATIVE); METHADONE,URINE NEGATIVE (NEGATIVE); METHAMPHETAMINES,URINE NEGATIVE (NEGATIVE); OPIATES,URINE NEGATIVE (NEGATIVE); OXYCODONE,URINE NEGATIVE (NEGATIVE); PHENCYCLIDINE,URINE NEGATIVE (NEGATIVE); TCA,URINE NEGATIVE (NEGATIVE)
[2024-04-03 15:56] LABS: AMORPHOUS SEDIMENT,URINE FEW /HPF (NOT SEEN); BACTERIA,URINE MANY /HPF (0-FEW/HPF); EPITHELIAL CELLS,URINE MANY /HPF (NOT SEEN); HYALINE CASTS,URINE FEW; MUCUS,URINE FEW /LPF (NOT SEEN); RBC,URINE 0-5 /HPF (0-5); WBC,URINE PACKED /HPF (0-5/HPF)
[2024-04-03] MEDS ORDERED: Magnesium Hydroxide 400 MG/5 ML Susp 30 ML Cup PO PRN ×2 (16:01→16:21)
[2024-04-03] MEDS ORDERED: Bisacodyl 5 MG Tab PO PRN ×2 (16:01→16:21)
[2024-04-03] MEDS ORDERED: Polyethylene Glycol 3350 Powder 17 GM Packet PO PRN ×2 (16:01→16:21)
[2024-04-03] MEDS ORDERED: Naloxone 2 MG/2 ML Syringe IVPUSH PRN ×2 (16:01→16:21)
[2024-04-03] MEDS ORDERED: Acetaminophen/oxyCODONE 325-5 MG Tab PO PRN ×2 (16:01→16:21)
[2024-04-03] MEDS ORDERED: Melatonin 3 MG Tab PO PRN ×2 (16:01→16:21)
[2024-04-03] MEDS ORDERED: Acetaminophen 325 MG Tab PO PRN ×2 (16:01→16:21)
[2024-04-03] MEDS ORDERED: Albuterol/Ipratropium 3.0-0.5 MG/3 ML Neb Soln NEB PRN ×2 (16:01→16:21)
[2024-04-03] MEDS ORDERED: HYDROmorphone 0.5 MG/0.5 ML Syringe IVPUSH PRN ×2 (16:01→16:21)
[2024-04-03] MEDS ORDERED: Ondansetron 4 MG/2 ML SDV IVPUSH PRN (16:01)
[2024-04-03] MEDS ORDERED: Benzonatate 100 MG Cap PO PRN (16:05)
[2024-04-03] MEDS ORDERED: Lactated Ringers 1,000 ML IV SCH (16:15)
[2024-04-03] MEDS ORDERED: Calcium Carbonate 500 MG Tab.Chew PO PRN (16:30)
[2024-04-03 16:31] LABS: PROTHROMBIN TIME 10.5 SEC (9.0-12.0); PTT,PARTIAL THROMBOPLSTIN TIME 21.7 SEC (22.0-34.0)
[2024-04-03] MEDS ORDERED: Glucagon,Human Recombinant 1 MG Vial IM PRN (16:37)
[2024-04-03] MEDS ORDERED: 50% Dextrose in Water 50 ML Syringe IVPUSH PRN (16:37)
[2024-04-03 16:39] LABS: C-REACTIVE PROTEIN < 0.50 ng/dL (<=0.50)
[2024-04-03] MEDS: Potassium Chloride 10 MEQ Tab.ER PO ONE (16:42)
[2024-04-03] MEDS: cefTRIAXone 1 GM Vial IVPUSH ONE (16:42)
[2024-04-03] MEDS: Potassium Chloride 20 MEQ in Premix Bag 1 BAG IV ONE ×2 (17:12→17:17)
[2024-04-03] MEDS: Insulin Lispro 100 Units/ML 3 ML Vial SUBCUT SCH (17:17)
[2024-04-03] MEDS: Pantoprazole 40 MG Vial IVPUSH ONE (17:17)
[2024-04-03] MEDS: Lactated Ringers 1,000 ML IV SCH (17:18)
[2024-04-03] MEDS: Heparin Sodium 5,000 Units/ML Vial SUBCUT SCH (20:09)
[2024-04-03] MEDS: Saccharomyces Boulardii (Probiotic) 250 MG Cap PO SCH (20:09)
[2024-04-03] MEDS: Non-Formulary Medication 1 Each (Potassium Chloride [Potassium Chloride] 10 MEQ Capsule.Er PO SCH (20:10)
[2024-04-03] MEDS ORDERED: Heparin Sodium 5,000 Units/ML Vial SUBCUT SCH (21:00)
[2024-04-04] MEDS: Pantoprazole 40 MG Vial IVPUSH SCH (05:17)
[2024-04-04 06:19] LABS: BASOPHILS PERCENT AUTO 0.2 % (0.0-1.0); EOSINOPHILS PERCENT AUTO 2.6 % (1.0-3.0); HEMATOCRIT 24.2 % (37.0-47.0); HEMOGLOBIN 8.1 g/dL (12.0-16.0); LYMPHOCYTES PERCENT AUTO 35.6 % (20.5-50.1); MEAN CORPUSCULAR HEMOGLOBIN 32.7 pg (27.0-34.0); MEAN CORPUSCULAR HGB CONC 33.5 g/dL (33.0-35.0); MEAN CORPUSCULAR VOLUME 97.6 fL (80-100); MONOCYTES PERCENT AUTO 8.9 % (2-8); NEUTROPHILS PERCENT AUTO 52.7 % (42.2-75.2); PLATELET COUNT,PLT 162 10^3/uL (150-450); RED BLOOD CELL COUNT 2.48 10^6/uL (4.2-5.4); WHITE BLOOD CELL COUNT,WBC 6.2 10^3/uL (5.0-10.0)
[2024-04-04 06:32] LABS: ALANINE AMINOTRANSFERASE,ALT 11 U/L (14-59); ALBUMIN 2.4 g/dL (3.4-5.0); ALKALINE PHOSPHATASE 103 U/L (46-116); ANION GAP 10.2 mEq/L (7-13); ASPARTATE AMNIOTRANSFERASE,AST 8 U/L (15-37); BILIRUBIN TOTAL 0.4 mg/dL (0.2-1.0); BLOOD UREA NITROGEN,BUN 43 mg/dL (7-18); BUN/CREATININE RATIO 7.4 (No establ ref range); CARBON DIOXIDE,CO2 31 mmol/L (21-32); CHLORIDE,CL 101 mmol/L (98-107); EST CRCL DRUG DOSING (CG) 7.48 mL/min; GLUCOSE RANDOM 179 mg/dL (70-99); MAGNESIUM 2.1 mg/dL (1.8-2.4); PHOSPHORUS 1.2 mg/dL (2.6-4.7); POTASSIUM,K 3.2 mmol/L (3.5-5.1); SODIUM,NA 139 mmol/L (136-145)
[2024-04-04 07:00] LABS: A/G RATIO 0.67; C-REACTIVE PROTEIN < 0.50 ng/dL (<=0.50); CREATININE 5.79 mg/dL (0.55-1.02); ESTIMATED GFR 7 mL/min (>=60)
[2024-04-04] MEDS ORDERED: Non-Formulary Medication 1 Each (Magnesium Oxide [Magnesium Oxide] 400 MG Tablet) PO SCH (09:00)
[2024-04-04] MEDS ORDERED: Non-Formulary Medication 1 Each (Amlodipine [Norvasc] 10 MG Tablet) PO SCH (09:00)
[2024-04-04] MEDS ORDERED: Non-Formulary Medication 1 Each (Lisinopril [Lisinopril] 40 MG Tablet) PO SCH (09:00)
[2024-04-04] MEDS: Magnesium Oxide 400 MG Tab PO SCH (09:36)
[2024-04-04] MEDS: Potassium Chloride 10 MEQ Tab.ER PO SCH (09:36)
[2024-04-04] MEDS: amLODIPine 5 MG Tab PO SCH (09:36)
[2024-04-04] MEDS: Lisinopril 20 MG Tab PO SCH (09:48)
[2024-04-04] MEDS: Phosphorus #1 250 MG Tab PO ONE (10:44)
[2024-04-04] MEDS: Midodrine 5 MG Tab PO ONE (10:44)
[2024-04-04] MEDS: Midodrine 5 MG Tab PO SCH (16:25)
[2024-04-04] MEDS: cefTRIAXone 1 GM Vial IVPUSH SCH (16:59)
[2024-04-04] MEDS: Phosphorus #1 250 MG Tab PO SCH (20:30)
[2024-04-05] MEDS: Atropine 0.1 MG/ML 10 ML Syringe IVPUSH ONE (03:22)
[2024-04-05 06:24] LABS: BASOPHILS PERCENT AUTO 0.4 % (0.0-1.0); HEMATOCRIT 26.2 % (37.0-47.0); HEMOGLOBIN 8.6 g/dL (12.0-16.0); LYMPHOCYTES PERCENT AUTO 41.7 % (20.5-50.1); MEAN CORPUSCULAR HEMOGLOBIN 32.3 pg (27.0-34.0); MEAN CORPUSCULAR HGB CONC 32.8 g/dL (33.0-35.0); MEAN CORPUSCULAR VOLUME 98.5 fL (80-100); MONOCYTES PERCENT AUTO 10.3 % (2-8); NEUTROPHILS PERCENT AUTO 42.6 % (42.2-75.2); PLATELET COUNT,PLT 174 10^3/uL (150-450); RED BLOOD CELL COUNT 2.66 10^6/uL (4.2-5.4); WHITE BLOOD CELL COUNT,WBC 5.3 10^3/uL (5.0-10.0)
[2024-04-05 07:12] LABS: ALANINE AMINOTRANSFERASE,ALT 12 U/L (14-59); ALBUMIN 2.5 g/dL (3.4-5.0); ALKALINE PHOSPHATASE 106 U/L (46-116); ASPARTATE AMNIOTRANSFERASE,AST 12 U/L (15-37); BILIRUBIN TOTAL 0.3 mg/dL (0.2-1.0); BLOOD UREA NITROGEN,BUN 38 mg/dL (7-18); BUN/CREATININE RATIO 6.9 (No establ ref range); CALCIUM 7.8 mg/dL (8.5-10.1); CARBON DIOXIDE,CO2 32 mmol/L (21-32); CHLORIDE,CL 102 mmol/L (98-107); CHOLESTEROL HDL 45 mg/dL (40-59); CHOLESTEROL LDL CALCULATED 43 mg/dL (0-100); CHOLESTEROL TOTAL 108 mg/dL (0-199); EST CRCL DRUG DOSING (CG) 7.89 mL/min; GLUCOSE RANDOM 165 mg/dL (70-99); SODIUM,NA 141 mmol/L (136-145); TRIGLYCERIDES 98 mg/dL (0-149)
[2024-04-05 07:13] LABS: A/G RATIO 0.71; C-REACTIVE PROTEIN < 0.50 ng/dL (<=0.50); CREATININE 5.49 mg/dL (0.55-1.02); ESTIMATED GFR 8 mL/min (>=60)
[2024-04-05] MEDS: Potassium Chloride 10 MEQ Tab.ER PO SCH (08:35)
[2024-04-05] MEDS: Ondansetron 4 MG/2 ML SDV IVPUSH PRN (08:55)
[2024-04-06 06:49] LABS: BASOPHILS PERCENT AUTO 0.4 % (0.0-1.0); HEMATOCRIT 25.2 % (37.0-47.0); HEMOGLOBIN 8.2 g/dL (12.0-16.0); LYMPHOCYTES PERCENT AUTO 45.5 % (20.5-50.1); MEAN CORPUSCULAR HEMOGLOBIN 32.7 pg (27.0-34.0); MEAN CORPUSCULAR HGB CONC 32.5 g/dL (33.0-35.0); MEAN CORPUSCULAR VOLUME 100.4 fL (80-100); MONOCYTES PERCENT AUTO 8.8 % (2-8); NEUTROPHILS PERCENT AUTO 39.3 % (42.2-75.2); PLATELET COUNT,PLT 167 10^3/uL (150-450); RED BLOOD CELL COUNT 2.51 10^6/uL (4.2-5.4); WHITE BLOOD CELL COUNT,WBC 5.3 10^3/uL (5.0-10.0)
[2024-04-06 07:12] LABS: ALANINE AMINOTRANSFERASE,ALT 15 U/L (14-59); ALBUMIN 2.5 g/dL (3.4-5.0); ALKALINE PHOSPHATASE 104 U/L (46-116); ANION GAP 10.7 mEq/L (7-13); ASPARTATE AMNIOTRANSFERASE,AST 15 U/L (15-37); BILIRUBIN TOTAL 0.4 mg/dL (0.2-1.0); BLOOD UREA NITROGEN,BUN 40 mg/dL (7-18); BUN/CREATININE RATIO 6.3 (No establ ref range); CALCIUM 7.6 mg/dL (8.5-10.1); CARBON DIOXIDE,CO2 29 mmol/L (21-32); CHLORIDE,CL 107 mmol/L (98-107); GLUCOSE RANDOM 97 mg/dL (70-99); MAGNESIUM 2.2 mg/dL (1.8-2.4); PHOSPHORUS 2.4 mg/dL (2.6-4.7); POTASSIUM,K 4.7 mmol/L (3.5-5.1); PROTEIN TOTAL,TP 5.9 g/dL (6.4-8.2); SODIUM,NA 142 mmol/L (136-145)
[2024-04-06 07:13] LABS: A/G RATIO 0.74; C-REACTIVE PROTEIN < 0.50 ng/dL (<=0.50); CREATININE 6.37 mg/dL (0.55-1.02); ESTIMATED GFR 7 mL/min (>=60)
[2024-04-06 10:29] VITALS: BP 165/64
[2024-04-06 10:51] VITALS: PULSE 61
[2024-04-06] MEDS ORDERED: Potassium Chloride 10 MEQ Tab.ER PO SCH (18:00)
== END 2024-04-06 11:05 | disposition home or self-care (01) | DRG 371 ==
LOC: DL.ED 14:10 → DL.MS 16:11 → DL.ED 16:16 → OBSVTOIN 04-04 18:37
PROVIDERS: ADMIT Internal Medicine; ATTEND Internal Medicine
DX: K65.9 Peritonitis, unspecified (principal); N18.6 End stage renal disease; I10 Essential (primary) hypertension; N39.0 Urinary tract infection, site not specified; I12.0 Hypertensive chronic kidney disease with stage 5 chronic kidney disease or end stage renal disease; E87.20 Acidosis, unspecified; E87.6 Hypokalemia; Z66 Do not resuscitate; E11.9 Type 2 diabetes mellitus without complications; H54.7 Unspecified visual loss; I25.10 Atherosclerotic heart disease of native coronary artery without angina pectoris; M19.90 Unspecified osteoarthritis, unspecified site; F41.9 Anxiety disorder, unspecified; E66.9 Obesity, unspecified; R79.89 Other specified abnormal findings of blood chemistry; E78.5 Hyperlipidemia, unspecified; K21.9 Gastro-esophageal reflux disease without esophagitis; E87.8 Other disorders of electrolyte and fluid balance, not elsewhere classified; E11.65 Type 2 diabetes mellitus with hyperglycemia; E83.52 Hypercalcemia; E83.39 Other disorders of phosphorus metabolism; I95.9 Hypotension, unspecified; Z79.899 Other long term (current) drug therapy; Z87.01 Personal history of pneumonia (recurrent); Z68.25 Body mass index [BMI] 25.0-25.9, adult; Z86.16 Personal history of COVID-19; Z98.49 Cataract extraction status, unspecified eye; Z90.49 Acquired absence of other specified parts of digestive tract; Z89.511 Acquired absence of right leg below knee; I25.2 Old myocardial infarction; Z99.2 Dependence on renal dialysis
CPT/HCPCS: 36415 ×2; 71045; 80053 ×2; 80305; 81001; 82947 ×5; 83605 ×4; 83690; 83735; 84100 ×2; 84145; 84484 ×4; 85025 ×2; 85610; 85730; 86140 ×2; 87070; 87077 ×2; 87086; 87186 ×2; 93005; 93010; 96361; 96374; 99284; 99285; A9270 ×11; C9113 ×3; J0696 ×2; J1644 ×2; J2405; J3480; J7030; J7120 ×3; 80061; 96365; 96366; 96372; 96375; 96376; 99222; 99232; 99238; G0378; J0461; J1815-GY; J3490

== ENCOUNTER 2024-07-05 12:32 | Emergency (ER) | payer MEDICAID, MEDICARE ==
[2024-07-05 12:42] VITALS: BP 116/70; PULSE 75
[2024-07-05 12:57] LABS: HEMATOCRIT 24.8 % (37.0-47.0); HEMOGLOBIN 8.2 g/dL (12.0-16.0); MEAN CORPUSCULAR HGB CONC 33.1 g/dL (33.0-35.0); MEAN CORPUSCULAR VOLUME 96.9 fL (80-100); PLATELET COUNT,PLT 232 10^3/uL (150-450); RED BLOOD CELL COUNT 2.56 10^6/uL (4.2-5.4); WHITE BLOOD CELL COUNT,WBC 20.5 10^3/uL (5.0-10.0)
[2024-07-05 13:00] LABS: BASOPHILS PERCENT AUTO 0.1 % (0.0-1.0); EOSINOPHILS PERCENT AUTO 0.5 % (1.0-3.0); MONOCYTES PERCENT AUTO 4.4 % (2-8)
[2024-07-05 13:17] LABS: CALCIUM 8.8 mg/dL (8.5-10.1); EST CRCL DRUG DOSING (CG) 7.55 mL/min
[2024-07-05 13:21] LABS: CREATININE 5.48 mg/dL (0.55-1.02)
[2024-07-05 13:22] LABS: LYMPHOCYTES PERCENT MAN 3 % (20-50); MONOCYTES PERCENT MAN 5 % (2-8); SEG NEUTROPHILS PERCENT MAN 92 % (42-75)
[2024-07-05] MEDS: Acetaminophen 500 MG Tab PO ONE (15:12)
== END 2024-07-05 18:14 | disposition home or self-care (01) ==
LOC: DL.ED 12:32
DX: S63.501A Unspecified sprain of right wrist, initial encounter (principal); D72.829 Elevated white blood cell count, unspecified; I10 Essential (primary) hypertension; E66.9 Obesity, unspecified; E11.9 Type 2 diabetes mellitus without complications; Z79.899 Other long term (current) drug therapy; Z90.49 Acquired absence of other specified parts of digestive tract; Z68.27 Body mass index [BMI] 27.0-27.9, adult; W18.11XA Fall from or off toilet without subsequent striking against object, initial encounter
CPT/HCPCS: 36415; 73110-RT; 73700-LT; 80048; 85025; 87040; 99284; A9270-GY

== ENCOUNTER 2024-07-08 14:27 | Emergency (ER) | payer MEDICARE, MEDICAID ==
[2024-07-08] MEDS: HYDROmorphone 0.5 MG/0.5 ML Syringe IVPUSH ONE (14:49)
[2024-07-08 14:56] LABS: HEMATOCRIT 26.5 % (37.0-47.0); HEMOGLOBIN 8.9 g/dL (12.0-16.0); MEAN CORPUSCULAR HEMOGLOBIN 32.2 pg (27.0-34.0); MEAN CORPUSCULAR HGB CONC 33.6 g/dL (33.0-35.0); PLATELET COUNT,PLT 378 10^3/uL (150-450); RED BLOOD CELL COUNT 2.76 10^6/uL (4.2-5.4); WHITE BLOOD CELL COUNT,WBC 28.7 10^3/uL (5.0-10.0)
[2024-07-08 14:59] LABS: EOSINOPHILS PERCENT AUTO 0.1 % (1.0-3.0); LYMPHOCYTES PERCENT AUTO 7.6 % (20.5-50.1); MONOCYTES PERCENT AUTO 3.6 % (2-8); NEUTROPHILS PERCENT AUTO 88.7 % (42.2-75.2)
[2024-07-08 15:11] LABS: ANION GAP 17.2 mEq/L (7-13); BLOOD UREA NITROGEN,BUN 83 mg/dL (7-18); CALCIUM 9.2 mg/dL (8.5-10.1); CARBON DIOXIDE,CO2 27 mmol/L (21-32); CHLORIDE,CL 89 mmol/L (98-107); GLUCOSE RANDOM 167 mg/dL (70-99); POTASSIUM,K 3.2 mmol/L (3.5-5.1); SODIUM,NA 130 mmol/L (136-145)
[2024-07-08 15:17] LABS: PROTHROMBIN TIME 10.1 SEC (9.0-12.0)
[2024-07-08 15:22] LABS: CREATININE 5.79 mg/dL (0.55-1.02)
[2024-07-08 15:23] LABS: BAND PERCENT MAN 1 %; ESTIMATED GFR 7 mL/min (>=60); LYMPHOCYTES PERCENT MAN 7 % (20-50); MONOCYTES PERCENT MAN 4 % (2-8); SEG NEUTROPHILS PERCENT MAN 88 % (42-75)
[2024-07-08 19:16] VITALS: BP 109/63; PULSE 96
== END 2024-07-08 18:53 ==
LOC: DL.ED 14:27
DX: M25.552 Pain in left hip (principal); D72.829 Elevated white blood cell count, unspecified; I12.9 Hypertensive chronic kidney disease with stage 1 through stage 4 chronic kidney disease, or unspecified chronic kidney disease; E11.42 Type 2 diabetes mellitus with diabetic polyneuropathy; N18.9 Chronic kidney disease, unspecified; I25.10 Atherosclerotic heart disease of native coronary artery without angina pectoris; E66.9 Obesity, unspecified; Z90.49 Acquired absence of other specified parts of digestive tract; Z68.25 Body mass index [BMI] 25.0-25.9, adult; Z79.899 Other long term (current) drug therapy
CPT/HCPCS: 36415; 72170; 72192; 73552; 80048; 85025; 85610; 96374; 99284; 99285; J1170